=== PATIENT | female | born 1950 | race Two or more races ===

== ENCOUNTER 2019-06-01 20:11 | Inpatient (IN) | payer MEDICARE, MEDICAID ==
[~2019-06-01] VITALS: Ht 162.6 cm; Wt 136.8 kg
--- NOTE | 2019-06-01 20:20 | NUR ---
ED Nurse Note: Patient came with wheelchair c/o wheezes and lower back pain arouind 1830. /10 aching pain in mid back, no trauma; pt stated she was resting in bed. Pt has wheezes with difficutly breathing; pt stated she takes her inhaler but not effective. AAO x4, VSS at this time, skin is dry warm to touch.
[2019-06-01 20:30] VITALS: BP 144/83
--- NOTE | 2019-06-01 20:40 | Emergency Room Report ---
History of Present Illness General Chief Complaint: Upper Respiratory Illness Source: Patient Present Illness HPI Patient presents with severe dyspnea with wheezing. She has a history of asthma. Has been using an inhaler. She is not taking prednisone at this time. She states that this is the worst attack that she is ever had. She denies any color to her phlegm. The patient has had some upper back pain which is worsened with the cough. She rates this pain 6/10 and aching. It is pleuritic. He is taken no medication for this pain. The pain does not radiate. He denies calf pain or edema. No fevers, chills, sore throat, chest pain, palpitations, nausea, vomiting, diarrhea, dysuria, abdominal pain, joint pain, rashes, depression, anxiety, visual changes, dizziness, headache. Allergies: Coded Allergies: No Known Allergies (Unverified , 06/01/19) Patient History Past Medical History: see triage record Social History: Denies: smoking, alcohol use, drug use Social History Narrative with daughter - Reviewed Nursing Documentation: PMH: Agreed; PSxH: Agreed Nursing Documentation-PMH Hx Asthma: Yes Review of Systems All Other Systems: negative except mentioned in HPI Physical Exam Vital Signs Date Time Temp Pulse Resp B/P (MAP) Pulse Ox O2 Delivery O2 Flow Rate FiO2 06/01/19 20:17 98.2 88 18 144/83 (103) 97 Room Air Sp02 EP Interpretation: reviewed, normal General Appearance: well appearing, no apparent distress, GCS 15 Head: normocephalic Eyes: bilateral eye normal inspection, bilateral eye PERRL, bilateral eye EOMI ENT: moist mucus membranes Neck: supple Respiratory: chest non-tender, respiratory distress - Mild with exertion, wheezing, expiration, inspiration Cardiovascular #1: regular rate, rhythm Cardiovascular #2: 2+ radial (R) Gastrointestinal: normal inspection, normal bowel sounds, non tender, no mass, non-distended, overweight Musculoskeletal: normal range of motion, no calf tenderness, Asha's Sign negative, tender - Upper back Neurologic: alert, oriented x3, grossly normal Psychiatric: mood/affect normal Skin: no rash, warm/dry Medical Decision Making Diagnostic Impression: Primary Impression: COPD exacerbation ER Course Patient presents with severe dyspnea and wheezing. Differential includes acute myocardial infarction, COPD exacerbation, pneumonia, asthma exacerbation, pulmonary embolus amongst others. Clinically she does not have a PE at this time. Evaluation with EKG, chest x-ray and labs. The patient will be treated with Solu-Medrol and breathing treatments. EKG without injury. Chest x-ray COPD without infiltrate. Leukocytosis. Improved with breathing treatments but still with expiratory wheezes and dyspnea on exertion. Patient needs continued breathing treatments and observation. Admit [facility] floor Dr. Gama. Laboratory Tests Test 06/01/19 21:00 White Blood Count 13.1 K/UL (4.8-10.8) H Red Blood Count 4.42 M/UL (4.20-5.40) Hemoglobin 11.9 G/DL (12.0-16.0) L Hematocrit 36.9 % (37.0-47.0) L Mean Corpuscular Volume 83 FL (80-99) Mean Corpuscular Hemoglobin 26.9 PG (27.0-31.0) L Mean Corpuscular Hemoglobin Concent 32.3 G/DL (32.0-36.0) Red Cell Distribution Width 13.0 % (11.6-14.8) Platelet Count 374 K/UL (150-450) Mean Platelet Volume 5.6 FL (6.5-10.1) L Neutrophils (%) (Auto) 81.3 % (45.0-75.0) H Lymphocytes (%) (Auto) 12.3 % (20.0-45.0) L Monocytes (%) (Auto) 4.1 % (1.0-10.0) Eosinophils (%) (Auto) 1.4 % (0.0-3.0) Basophils (%) (Auto) 0.9 % (0.0-2.0) Prothrombin Time 10.3 SEC (9.30-11.50) Prothrombin Time INR 1.0 (0.9-1.1) PTT 31 SEC (23-33) Sodium Level 140 MMOL/L (136-145) Potassium Level 4.2 MMOL/L (3.5-5.1) Chloride Level 104 MMOL/L (98-107) Carbon Dioxide Level 29 MMOL/L (21-32) Anion Gap 7 mmol/L (5-15) Blood Urea Nitrogen 16 mg/dL (7-18) Creatinine 1.1 MG/DL (0.55-1.30) Estimate Glomerular Filtration Rate 49.3 mL/min (>60) Glucose Level 120 MG/DL (74-106) H Lactic Acid Level 1.00 mmol/L (0.4-2.0) Calcium Level 9.5 MG/DL (8.5-10.1) Total Bilirubin 0.2 MG/DL (0.2-1.0) Aspartate Amino Transferase (AST) 13 U/L (15-37) L Alanine Aminotransferase (ALT) 17 U/L (12-78) Alkaline Phosphatase 110 U/L (46-116) Total Creatine Kinase 47 U/L (26-308) Troponin I 0.000 ng/mL (0.000-0.056) Pro-B-Type Natriuretic Peptide 217 pg/mL (0-125) H Total Protein 8.3 G/DL (6.4-8.2) H Albumin 3.1 G/DL (3.4-5.0) L Globulin 5.2 g/dL Albumin/Globulin Ratio 0.6 (1.0-2.7) L EKG Diagnostic Results Rate: normal Rhythm: NSR ST Segments: no acute changes Rhythm Strip Diag. Results EP Interpretation: yes Rhythm: NSR, no PVC's, no ectopy Chest X-Ray Diagnostic Results Chest X-Ray Diagnostic Results : Chest X-Ray Ordered: Yes # of Views/Limited/Complete: 1 View Indication: Shortness of Breath EP Interpretation: Yes Interpretation: no consolidation, no effusion, no pneumothorax, other - COPD Impression: Other Electronically Signed by: Electronically signed by Adelso Andrews MD Last Vital Signs Date Time Temp Pulse Resp B/P (MAP) Pulse Ox O2 Delivery O2 Flow Rate FiO2 06/02/19 00:00 98.6 112 18 144/81 (102) 100 06/01/19 23:34 Room Air 06/01/19 21:38 21 Status: improved Disposition: ADMITTED INPATIENT Condition: Serious Adelso Andrews MD Jun 01, 2019 20:39
[2019-06-01] MEDS ORDERED: Ipratropium 0.02% Inh Soln 2.5ml UD HHN ONE (20:45)
[2019-06-01] MEDS ORDERED: Solu-MEDROL 125mg Inj IVP ONE (20:45)
[2019-06-01] MEDS: Albuterol ud Inhalation HHN SCH ×3 (21:08→21:34)
[2019-06-01 21:28] LABS: BASOPHILS % (AUTO) 0.9 % (0.0-2.0); EOSINOPHILS % (AUTO) 1.4 % (0.0-3.0); HEMATOCRIT 36.9 % (37.0-47.0); HEMOGLOBIN 11.9 G/DL (12.0-16.0); LYMPHOCYTES % (AUTO) 12.3 % (20.0-45.0); MEAN CORPUSCULAR VOLUME 83 FL (80-99); MONOCYTES % (AUTO) 4.1 % (1.0-10.0); NEUTROPHILS % (AUTO) 81.3 % (45.0-75.0); PLATELET COUNT 374 K/UL (150-450); RED BLOOD COUNT 4.42 M/UL (4.20-5.40); WHITE BLOOD COUNT 13.1 K/UL (4.8-10.8)
[2019-06-01 21:42] LABS: ANION GAP 7 mmol/L (5-15); BLOOD UREA NITROGEN 16 mg/dL (7-18); CALCIUM 9.5 MG/DL (8.5-10.1); CARBON DIOXIDE 29 MMOL/L (21-32); CHLORIDE 104 MMOL/L (98-107); CREATININE 1.1 MG/DL (0.55-1.30); POTASSIUM 4.2 MMOL/L (3.5-5.1); SODIUM 140 MMOL/L (136-145)
[2019-06-01 21:54] LABS: ALANINE AMINOTRANSFERASE 17 U/L (12-78); ALBUMIN 3.1 G/DL (3.4-5.0); ALBUMIN/GLOBULIN RATIO 0.6 (1.0-2.7); ALKALINE PHOSPHATASE 110 U/L (46-116); ASPARTATE AMINO TRANSFERASE 13 U/L (15-37); BILIRUBIN,TOTAL 0.2 MG/DL (0.2-1.0); CREATINE KINASE 47 U/L (26-308)
--- NOTE | 2019-06-01 22:45 | NUR ---
NURSE NOTES: Received a report from NASEEM Hernandes. Awaiting for pt's arrival.
[2019-06-01 22:52] VITALS: BP 144/83
--- NOTE | 2019-06-01 23:00 | NUR ---
NURSE NOTES: Pt arrived in the unit. AAOX4. Able to make needs known. On room air. No c/o pain/discomfort. IV site is patent and intact. Skin is intact. Belongings checked. Bed in lowest position. Bed alarm is furnace converter light within reach. Will continue to monitor.
[2019-06-01] MEDS ORDERED: Albuterol/Ipratropium 3ml neb HHN PRN (23:45)
[2019-06-02] VITALS: BP 144/81
[2019-06-02] MEDS ORDERED: NKM (00:39)
--- NOTE | 2019-06-02 03:38 | NUR ---
ED Nurse Note: Patient was admited to MS due to SOB, lower back pain, for observation. Patient was transfered to the unit via gurney, with all belongings. AAO x4, VSS at this time.
[2019-06-02 04:00] VITALS: BP 159/82
[2019-06-02] MEDS: Solu-MEDROL 125mg Inj IVP SCH ×2 (05:11→14:44)
[2019-06-02 06:23] LABS: HEMATOCRIT 37.7 % (37.0-47.0); HEMOGLOBIN 11.8 G/DL (12.0-16.0); MEAN CORPUSCULAR VOLUME 85 FL (80-99); PLATELET COUNT 427 K/UL (150-450); RED BLOOD COUNT 4.44 M/UL (4.20-5.40); RED CELL DISTRIBUTION WIDTH 14.5 % (11.6-14.8); WHITE BLOOD COUNT 13.2 K/UL (4.8-10.8)
[2019-06-02 06:34] LABS: ANION GAP 13 mmol/L (5-15); BLOOD UREA NITROGEN 16 mg/dL (7-18); CALCIUM 9.6 MG/DL (8.5-10.1); CARBON DIOXIDE 23 MMOL/L (21-32); CHLORIDE 104 MMOL/L (98-107); CREATININE 1.4 MG/DL (0.55-1.30); POTASSIUM 3.6 MMOL/L (3.5-5.1); SODIUM 140 MMOL/L (136-145)
--- NOTE | 2019-06-02 07:00 | NUR ---
HAND-OFF: Report given to NASEEM Quiroz. Pt is in stable condition.
--- NOTE | 2019-06-02 08:14 | NUR ---
NURSE NOTES: received report from NASEEM Laura. patient in bed. alert. oriented. verbally responsive. no respiratory distress noted. no c/o pain a this time. IV on RAC20 saline. bed in the lowest position. call light within reach. will continue to provide plan of care.
[2019-06-02 08:28] VITALS: BP 157/82
[2019-06-02] MEDS: Heparin 5000 units/ml inj SUBQ SCH ×3 (08:57→21:54)
[2019-06-02] MEDS ORDERED: cefTRIAXone 1 GM in D5W 55 ML IVPB SCH (09:00)
--- NOTE | 2019-06-02 10:51 | NUR ---
ST NOTES: REFERRED FOR SWALLOW EVAL BY DR AG (PRIMARY MD DR AVILES), SEE FULL REPORT. DYSPHAGIA RISK FACTORS FOR THIS 68 YEAR OLD AA AND ADVANCED AGED FEMALE: ACUTE ISSUES: COPD WITH EXACERBATION INCREASED RESP RATE WITH PO INTAKE SPONTANEOUSLY COUGH SOME ? UNRELATED TO PO INTAKE. LUNGS CLEAR NOW PER ER MD H/O ASTHMA, BORDERLINE DIABETES. NO POLST/ADVANCE DIRECTIVE REGARDING TUBE FEEDING PREFERENCES IF NEEDED. AT HOME ON REGULAR TEXTURE DIET AND THIN LIQUIDS. (NO DENTITION/DENTURES). FAMILY AND PT DENY SWALLOW PROBLEMS. NOW ON REGULAR TYPE DIET [facility] SOFT CHOPPED AND THIN LIQUIDS W/O REPORTED ASPIRATION PER FAMILY AND RN. OK WITH MEDS PER RN BUT MOSTLY IV NOW. INTAKE POOR PATIENT DISLIKES FOOD AND FAMILY BRINGING IN FOOD SHE LIKES (FRIED POTATOES AND EGG MCMUFFIN) PER RD NEEDS CCHO-LOW DIET. PATIENT ALERT BUT NOT VERY VERBAL SLEEPY AND SOB AT REST (RESP RATE USUALLY 18). ABLE TO EXPRESS SOME NEEDS AND DENIES SWALLOW PROBLEMS. INITIAL IMPRESSIONS: S/S OF HIGH ASPIRATION RISK AND DYSPHAGIA MOSTLY WITH THIN LIQUIDS SEQUENTIAL SIPS. GIVEN THIN LIQUIDS VIA STRAW SEQUENTIAL SIPS (3 0Z WATER [place] SWALLOW PROTOCOL), ONLY ABLE TO TAKE A FEW SIPS AND RESP RATE GOES UP TO 21 AND NEEDS TO REST AND TAKE A BREATH, LAST SWALLOW MILDLY DELAYED. NO OVERT ASPIRATION ? SILENT ASP RISK (LUNGS CLEAR NOW PER ER MD). GIVEN PUREED TSP GROSSLY FUNCTIONAL SWALLOW, DIFFICULT TO PALPATE GIVEN EXCESS NECK TISSUE (OBESITY). REFUSED MASTICATED SOLID BUT PER GRANDSON, ATE HALF OF EGG MCMUFFIN AND SOME FRIED POTATOES W/O OVERT ASPIRATION AND CHOKING. RECOMMENDATIONS: CONSIDER CONTINUE WITH PO INTAKE OF CURRENT [facility] SOFT CHOPPED DIET AND THIN LIQUIDS (ONE SIP AT A TIME ONLY RESP RATE BELOW 21) AND OTHER ASPIRATION PRECAUTIONS AND SUPERVISION/ASSIST WITH MEALS. PER CHALO, MARCELINO, CHANGE TO CCHO-LOW FOR NOW. SKILLED DYSPHAGIA MANAGEMENT AND TX IF HAS A MOD BARIUM SWALLOW STUDY AND DEFICITS FOUND (CAN DO STUDY IP OR OP IF DC). R/O COG-COM DEFICITS IF NEEDED (CHECK ORIENTATION WHEN MORE AWAKE) EDUCATED/TRAINED FAMILY AND STAFF IN POSTED ASPIRATION PRECAUTIONS
[2019-06-02] MEDS ORDERED: Azithromycin 500 MG in D5W 275 ML IV SCH (11:00)
[2019-06-02 11:27] VITALS: BP 177/92
--- NOTE | 2019-06-02 12:50 | Diagnostic Imaging Report ---
Indication: Dyspnea Comparison: None A single view chest radiograph was obtained. Findings: Cardiomediastinal silhouette is mildly prominent. Aorta mildly calcified. The lungs are clear. Pulmonary vascularity is appropriate. The diaphragmatic contour is smooth and costophrenic angles are sharp. No pleural effusions are identified. The bones are unremarkable. Impression: No acute findings
[2019-06-02 16:00] VITALS: BP 167/100
--- NOTE | 2019-06-02 16:15 | Pulmonology Progress Note ---
Assessment/Plan Assessment/Plan Pulmonary Consultation HPI Patient is a 68 year old woman admiotted complaining of severe dyspnea and wheezing. She has a history of asthma. Has been using PRN Albuyerol only. She is not taking prednisone at this time. She states that this is the worst attack that she is ever had. She denies any color to her phlegm The patient has had some upper back pain which is worsened with the cough. No fevers, chills, sore throat, chest pain, palpitations, nausea, vomiting, diarrhea, dysuria, abdominal pain, joint pain, rashes, depression, anxiety, visual changes, dizziness, headache. Allergies: No Known Allergies Past Medical History: Asthma, Hypertension Social History: Denies: smoking, alcohol use, drug use All Other Systems: negative except mentioned in HPI Physical Exam Vital Signs Noted Date Time Temp Pulse Resp B/P (MAP) Pulse Ox O2 Delivery O2 Flow Rate FiO2 06/01/19 20:17 98.2 88 18 144/83 (103) 97 Room Air General Appearance: well appearing, no apparent distress, GCS 15 Head: normocephalic Eyes: bilateral eye normal inspection, bilateral eye PERRL, bilateral eye EOMI ENT: moist mucus membranes Neck: supple Respiratory: chest non-tender, mild expiratory wheezing Cardiovascular: regular rate, rhythm, HS1, HS2, RRR Gastrointestinal: normal inspection, normal bowel sounds, non tender, no mass, non-distended, overweight Musculoskeletal: back normal, normal range of motion, no calf tenderness, Asha 's Sign negative Neurologic: alert, oriented x3, grossly normal Skin: no rash, warm/dry, no edema Impression: COPD/Asthma exacerbation Possible Chest Infection History of Hypertension Plan: IV Solu-Medrol - wean as tolerated HHN Q4 Leukocytosis. 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 PPX O2 PRN Laboratory Tests Test 06/01/19 21:00 White Blood Count 13.1 K/UL (4.8-10.8) H Red Blood Count 4.42 M/UL (4.20-5.40) Hemoglobin 11.9 G/DL (12.0-16.0) L Hematocrit 36.9 % (37.0-47.0) L Mean Corpuscular Volume 83 FL (80-99) Mean Corpuscular Hemoglobin 26.9 PG (27.0-31.0) L Mean Corpuscular Hemoglobin Concent 32.3 G/DL (32.0-36.0) Red Cell Distribution Width 13.0 % (11.6-14.8) Platelet Count 374 K/UL (150-450) Mean Platelet Volume 5.6 FL (6.5-10.1) L Neutrophils (%) (Auto) 81.3 % (45.0-75.0) H Lymphocytes (%) (Auto) 12.3 % (20.0-45.0) L Monocytes (%) (Auto) 4.1 % (1.0-10.0) Eosinophils (%) (Auto) 1.4 % (0.0-3.0) Basophils (%) (Auto) 0.9 % (0.0-2.0) Prothrombin Time 10.3 SEC (9.30-11.50) Prothrombin Time INR 1.0 (0.9-1.1) PTT 31 SEC (23-33) Sodium Level 140 MMOL/L (136-145) Potassium Level 4.2 MMOL/L (3.5-5.1) Chloride Level 104 MMOL/L (98-107) Carbon Dioxide Level 29 MMOL/L (21-32) Anion Gap 7 mmol/L (5-15) Blood Urea Nitrogen 16 mg/dL (7-18) Creatinine 1.1 MG/DL (0.55-1.30) Estimate Glomerular Filtration Rate 49.3 mL/min (>60) Glucose Level 120 MG/DL (74-106) H Lactic Acid Level 1.00 mmol/L (0.4-2.0) Calcium Level 9.5 MG/DL (8.5-10.1) Total Bilirubin 0.2 MG/DL (0.2-1.0) Aspartate Amino Transferase (AST) 13 U/L (15-37) L Alanine Aminotransferase (ALT) 17 U/L (12-78) Alkaline Phosphatase 110 U/L (46-116) Total Creatine Kinase 47 U/L (26-308) Troponin I 0.000 ng/mL (0.000-0.056) Pro-B-Type Natriuretic Peptide 217 pg/mL (0-125) H Total Protein 8.3 G/DL (6.4-8.2) H Albumin 3.1 G/DL (3.4-5.0) L Globulin 5.2 g/dL Albumin/Globulin Ratio 0.6 (1.0-2.7) L EKG: Rate: normal Rhythm: NSR ST Segments: no acute changes Chest X-Ray: no consolidation, no effusion, no pneumothorax, other - COPD Subjective ROS Limited/Unobtainable: No Allergies: Coded Allergies: No Known Allergies (Unverified , 06/01/19) Objective Last 24 Hour Vital Signs Date Time Temp Pulse Resp B/P (MAP) Pulse Ox O2 Delivery O2 Flow Rate FiO2 06/02/19 11:27 97.7 97 22 177/92 (120) 98 06/02/19 09:00 Room Air 06/02/19 08:28 98.1 90 24 157/82 (107) 97 06/02/19 05:41 98.5 06/02/19 04:00 98.5 97 19 159/82 (107) 98 06/02/19 00:00 98.6 112 18 144/81 (102) 100 06/01/19 23:34 Room Air 06/01/19 22:52 98.2 88 24 144/83 100 Room Air 21 06/01/19 22:52 98.2 88 24 144/83 100 Room Air 21 06/01/19 21:38 93 24 100 Room Air 21 89 19 100 06/01/19 21:15 89 19 100 Room Air 21 85 18 100 06/01/19 20:30 98.2 88 18 144/83 97 Room Air 06/01/19 20:30 88 18 Room Air 06/01/19 20:17 98.2 88 18 144/83 (103) 97 Room Air 06/01/19 19:55 85 19 100 Room Air 21 82 18 99 Intake and Output 06/01/19 06/02/19 19:00 07:00 Intake Total 360 ml Balance 360 ml Intake Oral 360 ml # Voids 2 Laboratory Tests 06/01/19 21:00: White Blood Count 13.1H, Red Blood Count 4.42, Hemoglobin 11.9L, Hematocrit 36.9L, Mean Corpuscular Volume 83, Mean Corpuscular Hemoglobin 26.9L, Mean Corpuscular Hemoglobin Concent 32.3, Red Cell Distribution Width 13.0, Platelet Count 374, Mean Platelet Volume 5.6L, Neutrophils (%) (Auto) 81.3H, Lymphocytes (%) (Auto) 12.3L, Monocytes (%) (Auto) 4.1, Eosinophils (%) (Auto) 1.4, Basophils (%) (Auto) 0.9, Prothrombin Time 10.3, Prothromb Time International Ratio 1.0, Activated Partial Thromboplast Time 31, Sodium Level 140, Potassium Level 4.2, Chloride Level 104, Carbon Dioxide Level 29, Anion Gap 7, Blood Urea Nitrogen 16, Creatinine 1.1, Estimat Glomerular Filtration Rate 49.3, Glucose Level 120H, Lactic Acid Level 1.00, Calcium Level 9.5, Total Bilirubin 0.2, Aspartate Amino Transf (AST/SGOT) 13L, Alanine Aminotransferase (ALT/SGPT) 17, Alkaline Phosphatase 110, Total Creatine Kinase 47, Troponin I 0.000, Pro-B- Type Natriuretic Peptide 217H, Total Protein 8.3H, Albumin 3.1L, Globulin 5.2, Albumin/Globulin Ratio 0.6L 06/02/19 04:59: White Blood Count 13.2H, Red Blood Count 4.44, Hemoglobin 11.8L, Hematocrit 37.7 , Mean Corpuscular Volume 85, Mean Corpuscular Hemoglobin 26.5L, Mean Corpuscular Hemoglobin Concent 31.2L, Red Cell Distribution Width 14.5, Platelet Count 427, Mean Platelet Volume 5.6L, Neutrophils (%) (Auto) , Lymphocytes (%) (Auto) , Monocytes (%) (Auto) , Eosinophils (%) (Auto) , Basophils (%) (Auto) , Sodium Level 140, Potassium Level 3.6, Chloride Level 104 , Carbon Dioxide Level 23, Anion Gap 13, Blood Urea Nitrogen 16, Creatinine 1.4H , Estimat Glomerular Filtration Rate 37.2, Glucose Level 274#H, Calcium Level 9.6 Current Medications Medications (Trade) Dose Ordered Sig/Tyler Route PRN Reason Start Time Stop Time Status Last Admin Dose Admin Acetaminophen (Tylenol) 650 mg Q4H PRN ORAL Mild Pain/Temp > 100.5 06/01/19 23:45 07/01/19 23:44 06/02/19 05:11 Albuterol/ Ipratropium (Albuterol/ Ipratropium) 3 ml Q4H PRN HHN Shortness of Breath 06/01/19 23:45 06/06/19 23:44 Azithromycin 500 mg/Dextrose 275 ml @ 275 mls/hr Q24HRS IV 06/02/19 11:00 06/08/19 11:59 06/02/19 12:11 Ceftriaxone Sodium 1 gm/ Dextrose 55 ml @ 110 mls/hr Q24H IVPB 06/02/19 09:00 06/09/19 08:59 06/02/19 10:04 Heparin Sodium (Porcine) (Heparin 5000 units/ml) 5,000 units EVERY 12 HOURS SUBQ 06/02/19 09:00 07/02/19 08:59 06/02/19 08:57 Methylprednisolone Sodium Succinate (Solu-MEDROL) 60 mg EVERY 8 HOURS IVP 06/02/19 06:00 07/02/19 05:59 06/02/19 14:44 Ondansetron HCl (Zofran) 4 mg Q8H PRN IVP Nausea & Vomiting 06/02/19 00:00 07/02/19 00:00 Adelso Sanches MD Jun 02, 2019 16:15
--- NOTE | 2019-06-02 18:28 | NUR ---
NURSE NOTES: NURSE NOTES:
--- NOTE | 2019-06-02 18:29 | NUR ---
NURSE NOTES: patient has had high blood pressure since admission. no hx of HTN. no home medication. notified DR. Richardson and received order consult with Dr. Salas. RN called gretchen Soto and no answer at this time.
--- NOTE | 2019-06-02 19:41 | NUR ---
HAND-OFF: Report given to NASEEM Naranjo.
--- NOTE | 2019-06-02 19:49 | NUR ---
NURSE NOTES: Received patient in bed, asleep, eyes closed, able to make her needs known, IV site is clean dry and intact, no acute distress noted, call light is within reach, bed is in low position, locked, alarm is on. Will continue to monitor for comfort and safety.
[2019-06-02 20:00] VITALS: BP 152/93
--- NOTE | 2019-06-02 21:46 | NUR ---
patients blood pressure been elevated am and pm shift, 172/78, 152/98, per Dr. Gama need to reach out to Dr. Salas, RN left a voice message at [phone] Salas.
[2019-06-02] MEDS: Solu-MEDROL 40mg Inj IVP SCH (21:53)
--- NOTE | 2019-06-02 22:30 | Consultation ---
DATE OF CONSULTATION: 06/02/2019 INFECTIOUS DISEASES CONSULTATION CONSULTING PHYSICIAN: Antonio Heard M.D. PRIMARY ATTENDING PHYSICIAN: Tae Gama M.D. REASON FOR CONSULTATION: COPD, asthma exacerbation. HISTORY OF PRESENT ILLNESS: This is a 68-year-old female admitted last night because of shortness of breath, wheezing. She had history of asthma, taking bronchodilator at home but it was not helpful. The patient also has mild leukocytosis of 13.1 at the time of admission. PAST MEDICAL HISTORY: Significant for obesity, asthma, COPD. ALLERGIES: No known drug allergies. MEDICATIONS: Azithromycin, ceftriaxone, methylprednisone, heparin, Zofran, Tylenol, albuterol ipratropium inhaler. SOCIAL HISTORY: Lives at home. . No history of alcohol, drug abuse, or smoking. REVIEW OF SYSTEMS: Feels much better. Still having slight shortness of breath especially with moving. No fever. No sore throat. No runny nose. Small amount of coughing that is nonproductive. No dysuria. No pain. PHYSICAL EXAMINATION: VITAL SIGNS: Temperature 97.7, pulse 97, blood pressure 177/92. GENERAL APPEARANCE: She is morbidly obese. HEAD AND NECK: [place] conjunctiva. HEART: Normal rate. LUNGS: Few wheezing on deep breathing. ABDOMEN: Obese, soft. EXTREMITIES: No edema. LABORATORY AND DIAGNOSTIC DATA: WBC 13.2, hemoglobin 11.8, hematocrit 37.7, and platelets is 427. Sodium 140, potassium 3.6, chloride 104, bicarbonate 23, BUN 16, and creatinine 1.4, glucose 274, albumin is 3.1. Chest x-ray showed no acute disease. IMPRESSION: 1. Asthma. 2. COPD exacerbation. 3. Leukocytosis. 4. Morbid obesity. 5. Hyperglycemia likely secondary to steroids. 6. Acute kidney injury. RECOMMENDATION: I agree with current treatment with ceftriaxone and Zithromax. The patient is to lose weight and tapering of steroids as soon as possible. At the end of my exam, I thank Dr. Gama, for involving me in the care of this patient. Antonio Heard M.D. DR: Jaswinder Atkins: 06/02/2019 15:48 JOB#: [id number] CC:
[2019-06-03] VITALS (7 sets, daily range): BP systolic 124–159; BP diastolic 80–98
--- NOTE | 2019-06-03 04:30 | History and Physical Report ---
DATE OF ADMISSION: 06/01/2019 HISTORY OF PRESENT ILLNESS: The patient is admitted for COPD exacerbation, elevated WBC. Reports that the patient has history of asthma. Has been complaining of wheezing, shortness of breath, and nonproductive cough for the past couple of days. Also, has chronic back pain. Admitted for asthma exacerbation. Denies nausea, vomiting, or diarrhea. Denies heartburn. Denies chills. PAST MEDICAL HISTORY: Asthma, chronic back pain. PAST SURGICAL HISTORY: , appendectomy. SOCIAL HISTORY: History of smoking. No history of alcohol or illicit drugs. MEDICATIONS: No known medications. FAMILY HISTORY: Noncontributory. REVIEW OF SYSTEMS: HEENT: Denies headaches. RESPIRATORY: Reports shortness of breath and nonproductive cough for a couple days of and wheezing. CARDIOVASCULAR: Denies chest pain. GI: Denies nausea, vomiting, diarrhea. EXTREMITIES: Does have chronic back pain. CENTRAL NERVOUS SYSTEM: Denies change in vision or speech pattern. PHYSICAL EXAMINATION: VITAL SIGNS: Temperature is 97.7, pulse 97, blood pressure 177/92. HEENT: PERRLA. NECK: Supple. No lymphadenopathy. CHEST: Clear. Bibasilar wheezing. CARDIOVASCULAR: Regular rate and rhythm. ABDOMEN: Soft. Positive bowel sounds. No organomegaly. EXTREMITIES: 1+ edema. NEUROLOGIC: Reflexes on both sides. Moves all four extremities. LABORATORY DATA: WBC of 13.1, hemoglobin 14.9, and platelets of 374. Sodium 140, potassium 4.2, BUN of 16, creatinine 1.1, and glucose of 120. ASSESSMENT AND PLAN: Asthma exacerbation, respiratory insufficiency. I have asked Dr. Antonio Heard and to see the patient to rule out pneumonia versus bronchitis and also for the management of asthma exacerbation. Tae Gama M.D. DR: LEIGHTON JOB#: [id number] CC:
[2019-06-03] MEDS: Solu-MEDROL 40mg Inj IVP SCH ×2 (05:32→13:47)
--- NOTE | 2019-06-03 07:07 | NUR ---
HAND-OFF: Report given to Julissa GUSMAN.
--- NOTE | 2019-06-03 07:15 | NUR ---
NURSE NOTES: Received report from NASEEM Naranjo. Pt is awake and alert, sitting up in bed. No complaints of pain or apparent distress noted. IV site intact. Bed locked in lowest position, side rails up, call light within reach. Will continue to monitor.
[2019-06-03] MEDS: Azithromycin 250mg tab ORAL SCH (08:29)
[2019-06-03] MEDS: Heparin 5000 units/ml inj SUBQ SCH ×3 (08:34→21:00)
--- NOTE | 2019-06-03 11:13 | NUR ---
RD ASSESSMENT & RECOMMENDATIONS SEE CARE ACTIVITY FOR COMPLETE ASSESSMENT DAILY ESTIMATED NEEDS: Needs based on COPD, OBESITY/ 73.75kg abw 20-25 kcals/kg 8905-8312 total kcals 1-1.5 g protein/kg 74-111 g total protein 25-30 mL/kg 4387-7896 total fluid mLs NUTRITION DIAGNOSIS: * Morbid obesity R/T lifestyle factors, excessive energy intake QUALITY TESTER as evidenced by BMI >50. * Altered nutrition related lab values R/T h/o "borderline diabetes," on steroidal med, clinical condition as evidenced by elev BGs (274, 120), pt on Solumedrol, elev BPs (159/98, 167/100), pt on hypotensive agents. CURRENT DIET:CCHO LOW, mech soft chopped PO DIET RECOMMENDATIONS: CCHO LOW, CARDIAC/ texture per COMPOSITION STONE APPLICATOR ADDITIONAL RECOMMENDATIONS: * Standing wt as able, or calibrated bedscale wt -> weekly wt monitoring given obesity * Check A1C for eval of glycemic control * Monitor BGs closely, need for NISS * Monitor for non-compliance with diet, educate prn * Diet education w/ pt as able- pt too sleepy this AM (06/03) -> discussed w/ spouse
--- NOTE | 2019-06-03 11:48 | Infectious Diseases Prog Note ---
Assessment/Plan Assessment/Plan IMPRESSION: 1. Asthma. 2. COPD exacerbation. 3. Leukocytosis. 4. Morbid obesity. 5. Hyperglycemia likely secondary to steroids. 6. Acute kidney injury. RECOMMENDATION: Continue Zithromax taper steroids f/u labs Subjective ROS Limited/Unobtainable: Yes Constitutional: Denies: fever Allergies: Coded Allergies: No Known Allergies (Unverified , 06/01/19) Objective Vital Signs Last 24 Hour Vital Signs Date Time Temp Pulse Resp B/P (MAP) Pulse Ox O2 Delivery O2 Flow Rate FiO2 06/03/19 09:00 Room Air 06/03/19 08:29 81 159/98 06/03/19 08:00 97.4 81 20 159/98 (118) 95 06/03/19 04:00 98.2 88 18 158/85 (109) 95 06/03/19 00:00 98.4 94 18 149/87 (107) 97 06/02/19 22:06 78 151/76 06/02/19 21:07 Room Air 06/02/19 20:00 97.8 87 17 152/93 (112) 06/02/19 19:44 Room Air 21 06/02/19 16:00 97.2 86 20 167/100 (122) 98 Height (Feet): 5 Height (Inches): 4.00 Weight (Pounds): 301 General Appearance: no acute distress HEENT: mucous membranes moist Respiratory/Chest: lungs clear Cardiovascular: normal rate Abdomen: soft, non tender Extremities: no edema Neurologic/Psychiatric: other - sleeping Current Medications Medications (Trade) Dose Ordered Sig/Tyler Route PRN Reason Start Time Stop Time Status Last Admin Dose Admin Acetaminophen (Tylenol) 650 mg Q4H PRN ORAL Mild Pain/Temp > 100.5 06/01/19 23:45 07/01/19 23:44 06/02/19 05:11 Albuterol/ Ipratropium (Albuterol/ Ipratropium) 3 ml Q4H PRN HHN Shortness of Breath 06/01/19 23:45 06/06/19 23:44 Amlodipine Besylate (Norvasc) 10 mg DAILY ORAL 06/03/19 09:00 07/03/19 08:59 06/03/19 08:29 Azithromycin (Zithromax) 500 mg DAILY ORAL 06/03/19 09:00 11/19 08:59 06/03/19 08:29 Clonidine HCl (Catapres Tab) 0.1 mg Q4H PRN ORAL bp over 165 syst 06/02/19 22:00 07/02/19 21:59 Heparin Sodium (Porcine) (Heparin 5000 units/ml) 5,000 units EVERY 12 HOURS SUBQ 06/02/19 09:00 07/02/19 08:59 06/03/19 08:34 Methylprednisolone Sodium Succinate (Solu-MEDROL) 40 mg EVERY 8 HOURS IVP 06/02/19 22:00 07/02/19 05:59 06/03/19 05:32 Ondansetron HCl (Zofran) 4 mg Q8H PRN IVP Nausea & Vomiting 06/02/19 00:00 07/02/19 00:00 Antonio Heard MD Jun 03, 2019 11:48
--- NOTE | 2019-06-03 13:33 | Consultation ---
Consult Note Consult Note asked to eval at the request of Dr Lainez for BP management interviewed examined Chief Complaint: Upper Respiratory Illness Patient presents with severe dyspnea with wheezing. She has a history of asthma. Has been using an inhaler. She is not taking prednisone at this time. She states that this is the worst attack that she is ever had. She denies any color to her phlegm. The patient has had some upper back pain which is worsened with the cough. No fevers, chills, sore throat, chest pain, palpitations, nausea, vomiting, diarrhea, dysuria, abdominal pain, joint pain, rashes, depression, anxiety, visual changes, dizziness, headache. No Known Allergies (Unverified , 06/01/19) Assessment/Plan exacerbation COPD- HTN- Anemia BP meds 2 D echo Anemia espino per pulmonary taper steroids as possible Herb Salas MD Jun 03, 2019 13:33
--- NOTE | 2019-06-03 14:58 | NUR ---
*-* INSURANCE *-* ALL CLINICALS HAVE BEEN FAXED TO: Juan Carlos Ibrahim Ref# or CM [place] fax#[phone] & [facility] Ref#[id number] ph#[phone] fax#[phone]
--- NOTE | 2019-06-03 19:25 | NUR ---
HAND-OFF: Report given to NASEEM Naranjo.
--- NOTE | 2019-06-03 19:42 | NUR ---
NURSE NOTES: Received patient in bed, family at bedside, patient is awake, alert and oriented x4, able to make her needs known, IV site is clean dry and intact. Call light is within reach, bed is in low position, locked and alarm is on. Will continue to monitor for safety and comfort.
[2019-06-03] MEDS ORDERED: Solu-MEDROL 40mg Inj IVP SCH (21:00)
--- NOTE | 2019-06-03 21:22 | General Progress Note ---
Assessment/Plan Problem List: (1) COPD exacerbation ICD Codes: J44.1 - Chronic obstructive pulmonary disease with (acute) exacerbation SNOMED: 138374113 Status: progressing Assessment/Plan: no wheezing afebrile vitals stable copd exacerbation do nebs Subjective ROS Limited/Unobtainable: Yes Allergies: Coded Allergies: No Known Allergies (Unverified , 06/01/19) Objective Last 24 Hour Vital Signs Date Time Temp Pulse Resp B/P (MAP) Pulse Ox O2 Delivery O2 Flow Rate FiO2 06/03/19 21:14 Room Air 06/03/19 20:35 Room Air 21 06/03/19 20:00 98.1 96 20 133/81 (98) 98 06/03/19 16:00 98.0 85 20 131/80 (97) 96 06/03/19 13:56 124/84 06/03/19 13:54 89 124/84 (97) 06/03/19 12:00 97.5 74 20 152/90 (110) 97 06/03/19 09:00 Room Air 06/03/19 08:29 81 159/98 06/03/19 08:00 97.4 81 20 159/98 (118) 95 06/03/19 04:00 98.2 88 18 158/85 (109) 95 06/03/19 00:00 98.4 94 18 149/87 (107) 97 06/02/19 22:06 78 151/76 Intake and Output 06/02/19 06/03/19 19:00 07:00 Intake Total 865 ml 360 ml Balance 865 ml 360 ml Intake Oral 480 ml 360 ml IV Total 385 ml # Voids 3 2 # Bowel Movements 1 Height (Feet): 5 Height (Inches): 4.00 Weight (Pounds): 301 Cardiovascular: regular rhythm Respiratory/Chest: lungs clear Abdomen: soft Tae Gama MD Jun 03, 2019 21:22
--- NOTE | 2019-06-03 22:06 | NUR ---
NURSE NOTES: Patients IV has infiltrated, attempted to restart new IV, unsuccessful, patient is refusing it now, notified CN and MD.
--- NOTE | 2019-06-03 22:28 | NUR ---
NURSE NOTES: per Dr. Sanches discontinue IV solumedrol and start patient on prednisone 40 mg QD.
--- NOTE | 2019-06-03 22:57 | Pulmonology Progress Note ---
Assessment/Plan Assessment/Plan Pulmonary Progress Note HPI Patient is a 68 year old woman admiotted complaining of severe dyspnea and wheezing. She has a history of asthma. Has been using PRN Albuterol only. The patient previously had some upper back pain which is worsened with the cough. No infiltrates on CXR. No fevers, chills, sore throat, chest pain, palpitations, nausea, vomiting, diarrhea, dysuria, abdominal pain, joint pain, rashes, depression, anxiety, visual changes, dizziness, headache. Allergies: No Known Allergies Past Medical History: Asthma, HypertensionI Physical Exam Vital Signs Noted General Appearance: well appearing, no apparent distress, GCS 15 Head: normocephalic Eyes: bilateral eye normal inspection, bilateral eye PERRL, bilateral eye EOMI ENT: moist mucus membranes Neck: supple Respiratory: chest non-tender, CTAB Cardiovascular: regular rate, rhythm, HS1, HS2, RRR Gastrointestinal: normal inspection, normal bowel sounds, non tender, no mass, non-distended, overweight Musculoskeletal: back normal, normal range of motion, no calf tenderness, Asha 's Sign negative Neurologic: alert, oriented x3, grossly normal Skin: no rash, warm/dry, no edema Impression: COPD/Asthma exacerbation Possible Chest Infection No infiltrate on CXR History of Hypertension Plan: PO Prednisone - wean as tolerated HHN Q4 Leukocytosis. 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 Laboratory Tests Noted Test 06/01/19 21:00 White Blood Count 13.1 K/UL (4.8-10.8) H Red Blood Count 4.42 M/UL (4.20-5.40) Hemoglobin 11.9 G/DL (12.0-16.0) L Hematocrit 36.9 % (37.0-47.0) L Mean Corpuscular Volume 83 FL (80-99) Mean Corpuscular Hemoglobin 26.9 PG (27.0-31.0) L Mean Corpuscular Hemoglobin Concent 32.3 G/DL (32.0-36.0) Red Cell Distribution Width 13.0 % (11.6-14.8) Platelet Count 374 K/UL (150-450) Mean Platelet Volume 5.6 FL (6.5-10.1) L Neutrophils (%) (Auto) 81.3 % (45.0-75.0) H Lymphocytes (%) (Auto) 12.3 % (20.0-45.0) L Monocytes (%) (Auto) 4.1 % (1.0-10.0) Eosinophils (%) (Auto) 1.4 % (0.0-3.0) Basophils (%) (Auto) 0.9 % (0.0-2.0) Prothrombin Time 10.3 SEC (9.30-11.50) Prothrombin Time INR 1.0 (0.9-1.1) PTT 31 SEC (23-33) Sodium Level 140 MMOL/L (136-145) Potassium Level 4.2 MMOL/L (3.5-5.1) Chloride Level 104 MMOL/L (98-107) Carbon Dioxide Level 29 MMOL/L (21-32) Anion Gap 7 mmol/L (5-15) Blood Urea Nitrogen 16 mg/dL (7-18) Creatinine 1.1 MG/DL (0.55-1.30) Estimate Glomerular Filtration Rate 49.3 mL/min (>60) Glucose Level 120 MG/DL (74-106) H Lactic Acid Level 1.00 mmol/L (0.4-2.0) Calcium Level 9.5 MG/DL (8.5-10.1) Total Bilirubin 0.2 MG/DL (0.2-1.0) Aspartate Amino Transferase (AST) 13 U/L (15-37) L Alanine Aminotransferase (ALT) 17 U/L (12-78) Alkaline Phosphatase 110 U/L (46-116) Total Creatine Kinase 47 U/L (26-308) Troponin I 0.000 ng/mL (0.000-0.056) Pro-B-Type Natriuretic Peptide 217 pg/mL (0-125) H Total Protein 8.3 G/DL (6.4-8.2) H Albumin 3.1 G/DL (3.4-5.0) L Globulin 5.2 g/dL Albumin/Globulin Ratio 0.6 (1.0-2.7) L EKG: Rate: normal Rhythm: NSR ST Segments: no acute changes Chest X-Ray: no consolidation, no effusion, no pneumothorax Subjective ROS Limited/Unobtainable: No Allergies: Coded Allergies: No Known Allergies (Unverified , 06/01/19) Objective Last 24 Hour Vital Signs Date Time Temp Pulse Resp B/P (MAP) Pulse Ox O2 Delivery O2 Flow Rate FiO2 06/03/19 22:15 151/76 06/03/19 21:14 Room Air 06/03/19 20:35 Room Air 21 06/03/19 20:00 98.1 96 20 133/81 (98) 98 06/03/19 16:00 98.0 85 20 131/80 (97) 96 06/03/19 13:56 124/84 06/03/19 13:54 89 124/84 (97) 06/03/19 12:00 97.5 74 20 152/90 (110) 97 06/03/19 09:00 Room Air 06/03/19 08:29 81 159/98 06/03/19 08:00 97.4 81 20 159/98 (118) 95 06/03/19 04:00 98.2 88 18 158/85 (109) 95 06/03/19 00:00 98.4 94 18 149/87 (107) 97 Intake and Output 06/02/19 06/03/19 19:00 07:00 Intake Total 865 ml 360 ml Balance 865 ml 360 ml Intake Oral 480 ml 360 ml IV Total 385 ml # Voids 3 2 # Bowel Movements 1 Current Medications Medications (Trade) Dose Ordered Sig/Tyler Route PRN Reason Start Time Stop Time Status Last Admin Dose Admin Acetaminophen (Tylenol) 650 mg Q4H PRN ORAL Mild Pain/Temp > 100.5 06/01/19 23:45 07/01/19 23:44 06/02/19 05:11 Albuterol/ Ipratropium (Albuterol/ Ipratropium) 3 ml Q4H PRN HHN Shortness of Breath 06/01/19 23:45 06/06/19 23:44 Amlodipine Besylate (Norvasc) 10 mg DAILY ORAL 06/03/19 09:00 07/03/19 08:59 06/03/19 08:29 Azithromycin (Zithromax) 500 mg DAILY ORAL 06/03/19 09:00 06/10/19 08:59 06/03/19 08:29 Clonidine HCl (Catapres Tab) 0.1 mg EVERY 8 HOURS ORAL 06/03/19 14:00 07/03/19 13:59 06/03/19 22:15 Clonidine HCl (Catapres Tab) 0.1 mg Q4H PRN ORAL bp over 165 syst 06/02/19 22:00 07/02/19 21:59 Heparin Sodium (Porcine) (Heparin 5000 units/ml) 5,000 units EVERY 12 HOURS SUBQ 06/02/19 09:00 07/02/19 08:59 06/03/19 08:34 Ondansetron HCl (Zofran) 4 mg Q8H PRN IVP Nausea & Vomiting 06/02/19 00:00 07/02/19 00:00 Prednisone (predniSONE) 40 mg DAILY ONCE ORAL 06/04/19 09:00 06/04/19 09:01 Adelso Sanches MD Jun 03, 2019 22:57
--- NOTE | 2019-06-04 07:20 | NUR ---
NURSE NOTES: received report form NASEEM Naranjo,. pATIENT Addendum: 06/04/19 at 0804 by Michelle Mario RN Patient in bed, eating breakfast. On room air, no signs of distress or labored breathing. NO IV access, MD aware. Bed in lowest position with call light in reach. Will continue with plan of care.
--- NOTE | 2019-06-04 07:27 | NUR ---
HAND-OFF: Report given to Michelle GUSMAN.
[2019-06-04 08:00] VITALS: BP 130/88
[2019-06-04] MEDS: Azithromycin 250mg tab ORAL SCH (08:32)
[2019-06-04 08:54] LABS: APPEARANCE,URINE CLEAR; BILIRUBIN, URINE NEGATIVE (NEGATIVE); COLOR,URINE PALE YELLOW; GLUCOSE, URINE (UA) NEGATIVE (NEGATIVE); KETONES,URINE NEGATIVE (NEGATIVE); LEUKOCYTE ESTERASE ,URINE NEGATIVE (NEGATIVE); NITRITE,URINE NEGATIVE (NEGATIVE); PH,URINE 6 (4.5-8.0); PROTEIN,URINE NEGATIVE (NEGATIVE); UROBILINOGEN,URINE NORMAL MG/DL (0.0-1.0)
[2019-06-04] MEDS: Heparin 5000 units/ml inj SUBQ SCH ×2 (09:00→21:00)
--- NOTE | 2019-06-04 11:19 | Nephrology Progress Note ---
Assessment/Plan Problem List: (1) COPD exacerbation (2) Anemia (3) HTN (hypertension) Assessment exacerbation COPD- HTN- Anemia Plan refused blood draw BP meds 2 D echo Anemia espino per pulmonary taper steroids as possible Subjective ROS Limited/Unobtainable: No Constitutional: Reports: malaise, weakness Objective Objective Last 24 Hour Vital Signs Date Time Temp Pulse Resp B/P (MAP) Pulse Ox O2 Delivery O2 Flow Rate FiO2 06/04/19 08:33 92 130/88 06/04/19 05:25 134/78 06/03/19 22:15 151/76 06/03/19 21:14 Room Air 06/03/19 20:35 Room Air 21 06/03/19 20:00 98.1 96 20 133/81 (98) 98 06/03/19 16:00 98.0 85 20 131/80 (97) 96 06/03/19 13:56 124/84 06/03/19 13:54 89 124/84 (97) 06/03/19 12:00 97.5 74 20 152/90 (110) 97 Intake and Output 06/03/19 06/04/19 19:00 07:00 Intake Total 720 ml Balance 720 ml Intake Oral 720 ml # Voids 3 Laboratory Tests 06/04/19 08:30: Urine Color Pale yellow, Urine Appearance Clear, Urine pH 6, Urine Specific [place] 1.015, Urine Protein Negative, Urine Glucose (UA) Negative, Urine Ketones Negative, Urine Blood Negative, Urine Nitrite Negative, Urine Bilirubin Negative, Urine Urobilinogen Normal, Urine Leukocyte Esterase Negative, Urine RBC 0-2, Urine WBC 0-2, Urine Squamous Epithelial Cells Few, Urine Bacteria Few Height (Feet): 5 Height (Inches): 4.00 Weight (Pounds): 301 General Appearance: no apparent distress Cardiovascular: tachycardia Respiratory/Chest: decreased breath sounds Abdomen: distended, other - obese Herb Salas MD Jun 04, 2019 11:19
[2019-06-04 12:00] VITALS: BP 134/74
--- NOTE | 2019-06-04 12:53 | NUR ---
DISCHARGE SWALLOW/SPEECH THERAPY SUMMARY: SEEN FOR DYSPHAGIA, SEE SWALLOW EVAL REPORT. PATIENT INTAKE POOR FOR DOWNGRADED DIET AND SHE IS EATING MASTICATED SOLID FOODS FROM OUTSIDE OF HOSPITAL (AGAINST MEDICAL ADVICE). PER RD PT ON A CARDIAC AND CCHO-LOW DIET TYPE. WILL CLEAR PT FOR SOFT CHEW DIET SINCE SHE REPORTEDLY CAN TOLERATE THIS CONSISTENTLY. PATIENT NOT RECEPTIVE TO MOD BARIUM SWALLOW STUDY. PATIENT AND HER ADVISED TO FOLLOW ASPIRATION PRECAUTIONS IT RELATES TO SOB (NEEDS TO REST SO SHE DOES NOT INHALE THIN LIQUIDS) STAFF EDUCATED/UPDATED IN ASPIRATION PRECAUTIONS AND DIET CHANGES. PLAN: D/C FROM [facility] SINCE SWALLOW IS GROSSLY FUNCTIONAL
--- NOTE | 2019-06-04 13:28 | Infectious Diseases Prog Note ---
Assessment/Plan Assessment/Plan IMPRESSION: 1. Asthma. 2. COPD exacerbation. 3. Leukocytosis. 4. Morbid obesity. 5. Hyperglycemia likely secondary to steroids. 6. Acute kidney injury. RECOMMENDATION: Continue Zithromax f/u labs Subjective ROS Limited/Unobtainable: No Constitutional: Reports: no symptoms Respiratory: Reports: no symptoms Cardiovascular: Reports: no symptoms Gastrointestinal/Abdominal: Reports: no symptoms Genitourinary: Reports: no symptoms Allergies: Coded Allergies: No Known Allergies (Unverified , 06/01/19) Objective Vital Signs Last 24 Hour Vital Signs Date Time Temp Pulse Resp B/P (MAP) Pulse Ox O2 Delivery O2 Flow Rate FiO2 06/04/19 12:00 98.3 94 19 134/74 (94) 98 06/04/19 08:33 92 130/88 06/04/19 08:00 98.3 92 19 130/88 (102) 98 06/04/19 05:25 134/78 06/03/19 22:15 151/76 06/03/19 21:14 Room Air 06/03/19 20:35 Room Air 21 06/03/19 20:00 98.1 96 20 133/81 (98) 98 06/03/19 16:00 98.0 85 20 131/80 (97) 96 06/03/19 13:56 124/84 06/03/19 13:54 89 124/84 (97) Height (Feet): 5 Height (Inches): 4.00 Weight (Pounds): 301 General Appearance: other - obese Respiratory/Chest: lungs clear Cardiovascular: normal rate Abdomen: soft, non tender Extremities: no edema Neurologic/Psychiatric: alert, responsive Laboratory Tests Test 06/04/19 08:30 Urine Color Pale yellow Urine Appearance Clear Urine pH 6 (4.5-8.0) Urine Specific [place] 1.015 (1.005-1.035) Urine Protein Negative (NEGATIVE) Urine Glucose (UA) Negative (NEGATIVE) Urine Ketones Negative (NEGATIVE) Urine Blood Negative (NEGATIVE) Urine Nitrite Negative (NEGATIVE) Urine Bilirubin Negative (NEGATIVE) Urine Urobilinogen Normal MG/DL (0.0-1.0) Urine Leukocyte Esterase Negative (NEGATIVE) Urine RBC 0-2 /HPF (0 - 2) Urine WBC 0-2 /HPF (0 - 2) Urine Squamous Epithelial Cells Few /LPF (NONE/OCC) Urine Bacteria Few /HPF (NONE) Current Medications Medications (Trade) Dose Ordered Sig/Tyler Route PRN Reason Start Time Stop Time Status Last Admin Dose Admin Acetaminophen (Tylenol) 650 mg Q4H PRN ORAL Mild Pain/Temp > 100.5 06/01/19 23:45 07/01/19 23:44 06/02/19 05:11 Albuterol/ Ipratropium (Albuterol/ Ipratropium) 3 ml Q4H PRN HHN Shortness of Breath 06/01/19 23:45 06/06/19 23:44 Amlodipine Besylate (Norvasc) 10 mg DAILY ORAL 06/03/19 09:00 07/03/19 08:59 06/04/19 08:33 Azithromycin (Zithromax) 500 mg DAILY ORAL 06/03/19 09:00 06/10/19 08:59 06/04/19 08:32 Clonidine HCl (Catapres Tab) 0.1 mg EVERY 8 HOURS ORAL 06/03/19 14:00 07/03/19 13:59 06/04/19 05:25 Clonidine HCl (Catapres Tab) 0.1 mg Q4H PRN ORAL bp over 165 syst 06/02/19 22:00 07/02/19 21:59 Heparin Sodium (Porcine) (Heparin 5000 units/ml) 5,000 units EVERY 12 HOURS SUBQ 06/02/19 09:00 07/02/19 08:59 06/03/19 08:34 Ondansetron HCl (Zofran) 4 mg Q8H PRN IVP Nausea & Vomiting 06/02/19 00:00 07/02/19 00:00 Anotnio Heard MD Jun 04, 2019 13:28
--- NOTE | 2019-06-04 13:58 | NUR ---
*-* INSURANCE *-* ALL CLINICALS HAVE BEEN FAXED TO: Juan Carlos Ibrahim Ref# or TIFFANIE putnam fax#[phone] & [facility] Ref#[id number] ph#[phone]
[2019-06-04 16:00] VITALS: BP 131/76
--- NOTE | 2019-06-04 16:07 | Pulmonology Progress Note ---
Assessment/Plan Assessment/Plan Pulmonary Progress Note HPI Patient is a 68 year old woman admiotted complaining of severe dyspnea and wheezing. She has a history of asthma. Has been using PRN Albuterol only. The patient previously had some upper back pain which is worsened with the cough. No infiltrates on CXR. No fevers, chills, sore throat, chest pain, palpitations, nausea, vomiting, diarrhea, dysuria, abdominal pain, joint pain, rashes, depression, anxiety, visual changes, dizziness, headache. Less SOB Allergies: No Known Allergies Past Medical History: Asthma, Hypertension Physical Exam Vital Signs Noted General Appearance: well appearing, no apparent distress, GCS 15 Head: normocephalic Eyes: bilateral eye normal inspection, bilateral eye PERRL, bilateral eye EOMI ENT: moist mucus membranes Neck: supple Respiratory: chest non-tender, CTAB Cardiovascular: regular rate, rhythm, HS1, HS2, RRR Gastrointestinal: normal inspection, normal bowel sounds, non tender, no mass, non-distended, overweight Musculoskeletal: back normal, normal range of motion, no calf tenderness, Ahsa 's Sign negative Neurologic: alert, oriented x3, grossly normal Skin: no rash, warm/dry, no edema Impression: COPD/Asthma exacerbation Possible Chest Infection No infiltrate on CXR History of Hypertension Plan: PO Prednisone - wean as tolerated - Prednisone dose pack, Symbicort on DC ( Provided PPX) HHN Q4 Leukocytosis. 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 Laboratory Tests Noted Test 06/01/19 21:00 White Blood Count 13.1 K/UL (4.8-10.8) H Red Blood Count 4.42 M/UL (4.20-5.40) Hemoglobin 11.9 G/DL (12.0-16.0) L Hematocrit 36.9 % (37.0-47.0) L Mean Corpuscular Volume 83 FL (80-99) Mean Corpuscular Hemoglobin 26.9 PG (27.0-31.0) L Mean Corpuscular Hemoglobin Concent 32.3 G/DL (32.0-36.0) Red Cell Distribution Width 13.0 % (11.6-14.8) Platelet Count 374 K/UL (150-450) Mean Platelet Volume 5.6 FL (6.5-10.1) L Neutrophils (%) (Auto) 81.3 % (45.0-75.0) H Lymphocytes (%) (Auto) 12.3 % (20.0-45.0) L Monocytes (%) (Auto) 4.1 % (1.0-10.0) Eosinophils (%) (Auto) 1.4 % (0.0-3.0) Basophils (%) (Auto) 0.9 % (0.0-2.0) Prothrombin Time 10.3 SEC (9.30-11.50) Prothrombin Time INR 1.0 (0.9-1.1) PTT 31 SEC (23-33) Sodium Level 140 MMOL/L (136-145) Potassium Level 4.2 MMOL/L (3.5-5.1) Chloride Level 104 MMOL/L (98-107) Carbon Dioxide Level 29 MMOL/L (21-32) Anion Gap 7 mmol/L (5-15) Blood Urea Nitrogen 16 mg/dL (7-18) Creatinine 1.1 MG/DL (0.55-1.30) Estimate Glomerular Filtration Rate 49.3 mL/min (>60) Glucose Level 120 MG/DL (74-106) H Lactic Acid Level 1.00 mmol/L (0.4-2.0) Calcium Level 9.5 MG/DL (8.5-10.1) Total Bilirubin 0.2 MG/DL (0.2-1.0) Aspartate Amino Transferase (AST) 13 U/L (15-37) L Alanine Aminotransferase (ALT) 17 U/L (12-78) Alkaline Phosphatase 110 U/L (46-116) Total Creatine Kinase 47 U/L (26-308) Troponin I 0.000 ng/mL (0.000-0.056) Pro-B-Type Natriuretic Peptide 217 pg/mL (0-125) H Total Protein 8.3 G/DL (6.4-8.2) H Albumin 3.1 G/DL (3.4-5.0) L Globulin 5.2 g/dL Albumin/Globulin Ratio 0.6 (1.0-2.7) L EKG: Rate: normal Rhythm: NSR ST Segments: no acute changes Chest X-Ray: no consolidation, no effusion, no pneumothorax Subjective ROS Limited/Unobtainable: No Allergies: Coded Allergies: No Known Allergies (Unverified , 06/01/19) Objective Last 24 Hour Vital Signs Date Time Temp Pulse Resp B/P (MAP) Pulse Ox O2 Delivery O2 Flow Rate FiO2 06/04/19 14:52 139/69 06/04/19 12:00 98.3 94 19 134/74 (94) 98 06/04/19 08:33 92 130/88 06/04/19 08:00 98.3 92 19 130/88 (102) 98 06/04/19 05:25 134/78 06/03/19 22:15 151/76 06/03/19 21:14 Room Air 06/03/19 20:35 Room Air 21 06/03/19 20:00 98.1 96 20 133/81 (98) 98 Intake and Output 06/03/19 06/04/19 18:59 06:59 Intake Total 720 ml Balance 720 ml Intake Oral 720 ml # Voids 3 Laboratory Tests 06/04/19 08:30: Urine Color Pale yellow, Urine Appearance Clear, Urine pH 6, Urine Specific [place] 1.015, Urine Protein Negative, Urine Glucose (UA) Negative, Urine Ketones Negative, Urine Blood Negative, Urine Nitrite Negative, Urine Bilirubin Negative, Urine Urobilinogen Normal, Urine Leukocyte Esterase Negative, Urine RBC 0-2, Urine WBC 0-2, Urine Squamous Epithelial Cells Few, Urine Bacteria Few Current Medications Medications (Trade) Dose Ordered Sig/Tyler Route PRN Reason Start Time Stop Time Status Last Admin Dose Admin Acetaminophen (Tylenol) 650 mg Q4H PRN ORAL Mild Pain/Temp > 100.5 06/01/19 23:45 07/01/19 23:44 06/02/19 05:11 Albuterol/ Ipratropium (Albuterol/ Ipratropium) 3 ml Q4H PRN HHN Shortness of Breath 06/01/19 23:45 06/06/19 23:44 Amlodipine Besylate (Norvasc) 10 mg DAILY ORAL 06/03/19 09:00 07/03/19 08:59 06/04/19 08:33 Azithromycin (Zithromax) 500 mg DAILY ORAL 06/03/19 09:00 06/10/19 08:59 06/04/19 08:32 Clonidine HCl (Catapres Tab) 0.1 mg EVERY 8 HOURS ORAL 06/03/19 14:00 07/03/19 13:59 06/04/19 14:52 Clonidine HCl (Catapres Tab) 0.1 mg Q4H PRN ORAL bp over 165 syst 06/02/19 22:00 07/02/19 21:59 Heparin Sodium (Porcine) (Heparin 5000 units/ml) 5,000 units EVERY 12 HOURS SUBQ 06/02/19 09:00 07/02/19 08:59 06/03/19 08:34 Ondansetron HCl (Zofran) 4 mg Q8H PRN IVP Nausea & Vomiting 06/02/19 00:00 07/02/19 00:00 Adelso Sanches MD Jun 04, 2019 16:07
--- NOTE | 2019-06-04 16:09 | NUR ---
*-* DISCHARGE PLANNING *-* PATIENT HAS BEEN REFERRED TO: [facility] P: [phone] F: [phone]
--- NOTE | 2019-06-04 19:31 | NUR ---
HAND-OFF: Report given to NASEEM Hunt.
--- NOTE | 2019-06-04 19:35 | NUR ---
NURSE NOTES: Received patient in bed, patient is awake, alert and oriented. Verbally able to make her needs known. Breathing on room air. No SOB or acute distress noted. Call light is within reach, bed is in low position, locked and alarm is on. Will continue to monitor for safety and comfort.
[2019-06-04 20:00] VITALS: BP 134/74
--- NOTE | 2019-06-04 21:06 | General Progress Note ---
Assessment/Plan Problem List: (1) COPD exacerbation ICD Codes: J44.1 - Chronic obstructive pulmonary disease with (acute) exacerbation SNOMED: 377849157 Status: progressing Assessment/Plan: copd exacerbation is improving afebrile reviewed chart not hypoxic Subjective ROS Limited/Unobtainable: Yes Allergies: Coded Allergies: No Known Allergies (Unverified , 06/01/19) Objective Last 24 Hour Vital Signs Date Time Temp Pulse Resp B/P (MAP) Pulse Ox O2 Delivery O2 Flow Rate FiO2 06/04/19 16:00 97.5 75 19 131/76 (94) 99 06/04/19 14:52 139/69 06/04/19 12:00 98.3 94 19 134/74 (94) 98 06/04/19 09:00 Room Air 06/04/19 08:33 92 130/88 06/04/19 08:00 98.3 92 19 130/88 (102) 98 06/04/19 05:25 134/78 06/03/19 22:15 151/76 06/03/19 21:14 Room Air Intake and Output 06/03/19 06/04/19 19:00 07:00 Intake Total 720 ml Balance 720 ml Intake Oral 720 ml # Voids 3 Laboratory Tests 06/04/19 08:30: Urine Color Pale yellow, Urine Appearance Clear, Urine pH 6, Urine Specific [place] 1.015, Urine Protein Negative, Urine Glucose (UA) Negative, Urine Ketones Negative, Urine Blood Negative, Urine Nitrite Negative, Urine Bilirubin Negative, Urine Urobilinogen Normal, Urine Leukocyte Esterase Negative, Urine RBC 0-2, Urine WBC 0-2, Urine Squamous Epithelial Cells Few, Urine Bacteria Few Height (Feet): 5 Height (Inches): 4.00 Weight (Pounds): 301 Cardiovascular: normal rate Respiratory/Chest: lungs clear Abdomen: soft Tae Gama MD Jun 04, 2019 21:06
[2019-06-05] VITALS: BP 115/67
[2019-06-05 04:00] VITALS: BP 124/74
--- NOTE | 2019-06-05 07:20 | NUR ---
HAND-OFF: Report given to NASEEM Quiroz.
--- NOTE | 2019-06-05 07:42 | NUR ---
NURSE NOTES: received report from NASEEM Hunt. patient in bed. alert. oriented. verbally responsive. no respiratory distress noted. no c/o pain at this time. dc planing to home with home health. No IV site. MD is aware. patient does not want any needle procedures. no isolation. ambulatory. bed in the lowest position and locked. call light within reach. will continue to provide plan of care.
[2019-06-05 08:00] VITALS: BP 134/70
[2019-06-05] MEDS: Azithromycin 250mg tab ORAL SCH (08:27)
[2019-06-05] MEDS: Heparin 5000 units/ml inj SUBQ SCH (08:28)
--- NOTE | 2019-06-05 08:31 | NUR ---
NURSE NOTES: patient refused heparin sq. RN explained risks and benefits. Patient said no any kind of needle procedures.
--- NOTE | 2019-06-05 09:56 | Nephrology Progress Note ---
Assessment/Plan Problem List: (1) HTN (hypertension) Assessment: stable (2) COPD exacerbation (3) Anemia Assessment exacerbation COPD- HTN- Anemia Plan refused blood draw BP meds 2 D echo Anemia espino per pulmonary taper steroids as possible not much to add from renal stand Subjective ROS Limited/Unobtainable: No Objective Objective Last 24 Hour Vital Signs Date Time Temp Pulse Resp B/P (MAP) Pulse Ox O2 Delivery O2 Flow Rate FiO2 06/05/19 08:27 75 134/70 06/05/19 08:00 97.7 75 20 134/70 (91) 94 06/05/19 05:34 121/70 06/05/19 04:00 97.2 76 19 124/74 (91) 100 06/05/19 00:00 97.6 70 19 115/67 (83) 100 06/04/19 22:09 134/74 06/04/19 21:00 Room Air 06/04/19 20:00 97.7 79 19 134/74 (94) 100 06/04/19 16:00 97.5 75 19 131/76 (94) 99 06/04/19 14:52 139/69 06/04/19 12:00 98.3 94 19 134/74 (94) 98 Intake and Output 06/04/19 06/05/19 19:00 07:00 Intake Total 360 ml Balance 360 ml Intake Oral 360 ml # Voids 2 3 # Bowel Movements 1 Height (Feet): 5 Height (Inches): 4.00 Weight (Pounds): 301 General Appearance: no apparent distress Cardiovascular: normal rate Abdomen: other - obese Herb Salas MD Jun 05, 2019 09:56
[2019-06-05 12:00] VITALS: BP 131/72
--- NOTE | 2019-06-05 12:22 | NUR ---
CASE MANAGEMENT: REVIEW 68Y/FEMALE PRESENTED TO ED FROM HOME CC: WHEEZING . BACK PAIN SI: COPD . ASTHMA T 98.2 HR 85 RR 18 BP 144/83 SAT 97% ROOM AIR WBC 13.1 IS: SOLU MEDROL IV X1 ATROVENT HHN X1 ALBUTEROL HHN X1 CEFTRIAXONE IV X1 PATIENT ADMITTED TO MED/SURG UNIT 06/04/2019 DCP: PATIENT IS FROM HOME
[2019-06-05 14:16] VITALS: BP 131/72
--- NOTE | 2019-06-05 15:01 | General Progress Note ---
Assessment/Plan Problem List: (1) COPD exacerbation ICD Codes: J44.1 - Chronic obstructive pulmonary disease with (acute) exacerbation SNOMED: 766397791 Status: progressing Assessment/Plan: copd exacerbation is improved dc home w for vitals sign monitering see dc summary for details Subjective ROS Limited/Unobtainable: Yes Allergies: Coded Allergies: No Known Allergies (Unverified , 06/01/19) Objective Last 24 Hour Vital Signs Date Time Temp Pulse Resp B/P (MAP) Pulse Ox O2 Delivery O2 Flow Rate FiO2 06/05/19 14:16 131/72 06/05/19 12:00 98.1 82 18 131/72 (91) 96 06/05/19 09:00 Room Air 06/05/19 08:27 75 134/70 06/05/19 08:00 97.7 75 20 134/70 (91) 94 06/05/19 05:34 121/70 06/05/19 04:00 97.2 76 19 124/74 (91) 100 06/05/19 00:00 97.6 70 19 115/67 (83) 100 06/04/19 22:09 134/74 06/04/19 21:00 Room Air 06/04/19 20:00 97.7 79 19 134/74 (94) 100 06/04/19 16:00 97.5 75 19 131/76 (94) 99 Intake and Output 06/04/19 06/05/19 19:00 07:00 Intake Total 360 ml Balance 360 ml Intake Oral 360 ml # Voids 2 3 # Bowel Movements 1 Height (Feet): 5 Height (Inches): 4.00 Weight (Pounds): 301 Cardiovascular: normal rate Respiratory/Chest: lungs clear Abdomen: soft Tae Gama MD Jun 05, 2019 15:01
--- NOTE | 2019-06-05 16:28 | NUR ---
NURSE NOTES: patient discharged to home with fair condition by family member. no respiratory distress noted no pain at this time. No IV access. MD is aware. RN removed ID. Provided dc packet. RN checked and counted belonging with patient and obtained sign. home health will visit the patient on 06/06/19 as MD ordered. skin intact. RN assisted the patient to the lobby. patient left safely by family car.
--- NOTE | 2019-06-05 17:23 | Pulmonology Progress Note ---
Assessment/Plan Assessment/Plan Pulmonary Progress Note HPI Patient is a 68 year old woman admiotted complaining of severe dyspnea and wheezing. She has a history of asthma. Has been using PRN Albuterol only. The patient previously had some upper back pain which is worsened with the cough. No infiltrates on CXR. No fevers, chills, sore throat, chest pain, palpitations, nausea, vomiting, diarrhea, dysuria, abdominal pain, joint pain, rashes, depression, anxiety, visual changes, dizziness, headache. Less SOB Allergies: No Known Allergies Past Medical History: Asthma, Hypertension Physical Exam Vital Signs Noted General Appearance: well appearing, no apparent distress, GCS 15 Head: normocephalic Eyes: bilateral eye normal inspection, bilateral eye PERRL, bilateral eye EOMI ENT: moist mucus membranes Neck: supple Respiratory: chest non-tender, CTAB Cardiovascular: regular rate, rhythm, HS1, HS2, RRR Gastrointestinal: normal inspection, normal bowel sounds, non tender, no mass, non-distended, overweight Musculoskeletal: back normal, normal range of motion, no calf tenderness, Asha 's Sign negative Neurologic: alert, oriented x3, grossly normal Skin: no rash, warm/dry, no edema Impression: COPD/Asthma exacerbation Possible Chest Infection No infiltrate on CXR History of Hypertension Plan: PO Prednisone - wean as tolerated - Prednisone dose pack, Symbicort on DC ( Provided PPX) HHN Q4 Leukocytosis. Continue PO antibiotics FRINGE MAKER meds PPX O2 PRN Laboratory Tests Noted Test 06/01/19 21:00 White Blood Count 13.1 K/UL (4.8-10.8) H Red Blood Count 4.42 M/UL (4.20-5.40) Hemoglobin 11.9 G/DL (12.0-16.0) L Hematocrit 36.9 % (37.0-47.0) L Mean Corpuscular Volume 83 FL (80-99) Mean Corpuscular Hemoglobin 26.9 PG (27.0-31.0) L Mean Corpuscular Hemoglobin Concent 32.3 G/DL (32.0-36.0) Red Cell Distribution Width 13.0 % (11.6-14.8) Platelet Count 374 K/UL (150-450) Mean Platelet Volume 5.6 FL (6.5-10.1) L Neutrophils (%) (Auto) 81.3 % (45.0-75.0) H Lymphocytes (%) (Auto) 12.3 % (20.0-45.0) L Monocytes (%) (Auto) 4.1 % (1.0-10.0) Eosinophils (%) (Auto) 1.4 % (0.0-3.0) Basophils (%) (Auto) 0.9 % (0.0-2.0) Prothrombin Time 10.3 SEC (9.30-11.50) Prothrombin Time INR 1.0 (0.9-1.1) PTT 31 SEC (23-33) Sodium Level 140 MMOL/L (136-145) Potassium Level 4.2 MMOL/L (3.5-5.1) Chloride Level 104 MMOL/L (98-107) Carbon Dioxide Level 29 MMOL/L (21-32) Anion Gap 7 mmol/L (5-15) Blood Urea Nitrogen 16 mg/dL (7-18) Creatinine 1.1 MG/DL (0.55-1.30) Estimate Glomerular Filtration Rate 49.3 mL/min (>60) Glucose Level 120 MG/DL (74-106) H Lactic Acid Level 1.00 mmol/L (0.4-2.0) Calcium Level 9.5 MG/DL (8.5-10.1) Total Bilirubin 0.2 MG/DL (0.2-1.0) Aspartate Amino Transferase (AST) 13 U/L (15-37) L Alanine Aminotransferase (ALT) 17 U/L (12-78) Alkaline Phosphatase 110 U/L (46-116) Total Creatine Kinase 47 U/L (26-308) Troponin I 0.000 ng/mL (0.000-0.056) Pro-B-Type Natriuretic Peptide 217 pg/mL (0-125) H Total Protein 8.3 G/DL (6.4-8.2) H Albumin 3.1 G/DL (3.4-5.0) L Globulin 5.2 g/dL Albumin/Globulin Ratio 0.6 (1.0-2.7) L EKG: Rate: normal Rhythm: NSR ST Segments: no acute changes Chest X-Ray: no consolidation, no effusion, no pneumothorax Subjective ROS Limited/Unobtainable: No Allergies: Coded Allergies: No Known Allergies (Unverified , 06/01/19) Objective Last 24 Hour Vital Signs Date Time Temp Pulse Resp B/P (MAP) Pulse Ox O2 Delivery O2 Flow Rate FiO2 06/05/19 14:16 131/72 06/05/19 12:00 98.1 82 18 131/72 (91) 96 06/05/19 09:00 Room Air 06/05/19 08:27 75 134/70 06/05/19 08:00 97.7 75 20 134/70 (91) 94 06/05/19 05:34 121/70 06/05/19 04:00 97.2 76 19 124/74 (91) 100 06/05/19 00:00 97.6 70 19 115/67 (83) 100 06/04/19 22:09 134/74 06/04/19 21:00 Room Air 06/04/19 20:00 97.7 79 19 134/74 (94) 100 Intake and Output 06/04/19 06/05/19 18:59 06:59 Intake Total 360 ml Balance 360 ml Intake Oral 360 ml # Voids 2 3 # Bowel Movements 1 Adelso Sanches MD Jun 05, 2019 17:23
--- NOTE | 2019-06-07 08:05 | Discharge Summary ---
Discharge Summary Discharge Summary _ DATE OF ADMISSION: 06/01/2019 DATE OF DISCHARGE: 06/05/2019 DISCHARGED BY: Dr. Gama REASON FOR ADMISSION: 68 years old female with past medical history of asthma, borderline diabetes, morbid obesity, presented to emergency department with wheezing and severe dyspnea. Patient reported the worst attack, she ever had. Patient reported minimally productive cough with colored phlegm. Patient reported upper back pain , worsened with cough . Pain described as aching, pleuritic, 6 out of 10 on a scale 1-10. No radiation. No calf pain or edema. Upon evaluation pulse oximetry was 97% on room air , patient was afebrile. Laboratory work-up revealed mild leukocytosis with WBC 13.1, hemoglobin 11.9 , hematocrit 36.9 , platelet count 374. Stable electrolytes and renal parameters. Lactic acid 1.0. Glucose 120. Stable LFT. Troponin negative. pro BNP 217. EKG revealed sinus rhythm , no acute ischemic changes. Chest x-ray demonstrated no acute cardiopulmonary pathology. In emergency department patient received nebulizing treatment with bronchodilator , started on IV Solu-Medrol and subsequently admitted for further management. CONSULTANTS: pulmonary Dr. Myron VAZQUEZ specialist Dr. Rodney neighborhood coordinator Dr. Salas [facility] COURSE: Patient admitted and started on IV steroids with gradual tapering down. Patient started on empiric antibiotic due to leukocytosis. Bronchodilator treatment provided [id number] and as needed. Supplemental oxygen titrated to keep pulse oximetry above 92%. Pulse oximetry remained stable on room air. DVT prophylaxis provided. Patient gradually was able to be tapered from IV steroid and changed to oral prednisone. Patient was noted to have elevated blood pressure. Patient had an echocardiogram due to elevated blood pressure , which revealed preserved ejection fraction , no evidence of wall motion abnormality to the extent visualized. Right ventricular systolic pressure of 14. Mild left ventricular hypertrophy. Blood pressure was managed with calcium channel zia , and clonidine was on board as needed. Blood pressure stabilized with current regimen prior to discharge 131/72. Patient was continued on empiric antibiotic for possible infection. No fevers. Patient noted to have hyperglycemia, likely secondary to steroids. Patient provided no concentrated sweets diet. Steroids tapered fast as permitted. Renal parameters and electrolytes were closely monitored. Creatinine up to 1.4, likely due to steroids, IV steroids changed to oral /for Medrol dose pack. Repeat creatinine as outpatient. Patient clinically stabilized and was ready for discharge home with home health services. Prescription for Medrol Dosepak and Symbicort inhaler provided by veterinary assistant. FINAL DIAGNOSES: COPD exacerbation Asthma Hypertension Morbid obesity Leukocytosis Acute kidney injury Hyperglycemia , likely secondary to steroid DISCHARGE MEDICATIONS: See Medication Reconciliation list. DISCHARGE INSTRUCTIONS: Patient was discharged home with home health services. Follow up with primary care provider in one week. I have been assigned to dictate discharge summary for this account. I was not involved in the patient's management. Chula Love NP Jun 07, 2019 08:05
--- NOTE | 2019-06-07 10:52 | Cardiology Report ---
APPROVED REPORT EXAM: Two-dimensional and M-mode echocardiogram with Doppler and color Doppler. INDICATION Congestive Heart Failure M-Mode DIMENSIONS IVSd1.3 (0.7-1.1cm)Left Atrium (MM)4.2 (1.6-4.0cm) LVDd5.1 (3.5-5.6cm)Aortic Root3.6 (2.0-3.7cm) PWd1.0 (0.7-1.1cm)Aortic Cusp Exc.1.9 (1.5-2.0cm) IVSs1.8 cm LVDs3.0 (2.5-4.0cm) PWs1.2 cm Technically difficult study due to pt's body habitus. Normal left ventricular chamber size, systolic function and abnormal wall motion to extent visualized. Left ventricular ejection fraction estimated to be 55 %. Mild left ventricular hypertrophy. Anterior Echo-free space, may be due to pericardial fat or effusion. All other cardiac chamber sizes are within normal limits. Focal aortic valve sclerosis with adequate cusp excursion. Thickened mitral valve leaflets with normal excursion. Mitral annulus and aortic root calcification. Normal pulmonic valve structure. Normal tricuspid valve structure. IVC at normal size with physiologic collapse. A color flow and spectral Doppler study was performed and revealed: No aortic insufficiency. Trace mitral regurgitation. Mitral diastolic velocities suggest reduced left ventricular relaxation c/w mild LV diastolic dysfunction (Grade I ) Mild tricuspid regurgitation. Tricuspid systolic velocities suggests peak right ventricular systolic pressure of 14 mmHg.
--- NOTE | 2019-06-07 13:32 | NUR ---
*-* INSURANCE *-* ALL CLINICALS HAVE BEEN FAXED TO: Juan [facility] Ibrahim Ref# or TIFFANIE yet fax#[phone] & [employer] Ref#[id number] ph#[phone] Addendum: 06/08/19 at 1415 by EDDY FLORES CM DISCHARGE SUMMARY FAXED
== END 2019-06-05 16:14 | disposition home health service (06) | DRG 140 ==
LOC: EMR 20:50 → 4E 22:00 → OBSVTOIN 22:00 → EDBEDREQ 22:23
DX: J44.1 Chronic obstructive pulmonary disease with (acute) exacerbation (principal); N17.9 Acute kidney failure, unspecified; E66.01 Morbid (severe) obesity due to excess calories; Z68.43 Body mass index [BMI] 50.0-59.9, adult; Z87.891 Personal history of nicotine dependence; R73.9 Hyperglycemia, unspecified; T38.0X5A Adverse effect of glucocorticoids and synthetic analogues, initial encounter; D72.829 Elevated white blood cell count, unspecified; I10 Essential (primary) hypertension
CPT/HCPCS: 36415; 71045; 80048; 80053; 81001; 82550; 83605; 83880; 84484; 85025; 85610; 85730; 93005; 93306; 94640; 96374; 99285

== ENCOUNTER 2019-09-23 08:24 | Inpatient (IN) | payer MEDICAID, MEDICARE ==
[~2019-09-23] VITALS: Ht 160 cm; Wt 119.7 kg
[~2019-09-23 08:24] MED LIST: NKM
--- NOTE | 2019-09-23 08:41 | NUR ---
ED Nurse Note: Pt walked into ED w/ c/o SOB for 1 day. Pt states asthma machine broken at home. Current O2 is 95% RA. Pt lung sounds clear to auscultation bilaterally. Pt has hx of asthma and COPD. Pt states she fell at home on friday and injured R wrist. R wrist pain 04/13 and ROM 08/08. Pt denies numbness/pain. Pt is alert and orientedx4, uses W/C. Pt set up on monitor.
[2019-09-23 09:09] VITALS: BP 137/78
--- NOTE | 2019-09-23 09:37 | Emergency Room Report ---
History of Present Illness General Chief Complaint: Dyspnea/Respdistress Source: Patient, Significant Other Present Illness HPI Patient presents reporting that she is having a ' flareup of my asthma' Denies any chest pain she reports that walking back to her room Or any short exertion causes increased shortness of breath Patient denies any vomiting or diarrhea she has had a mild cough denies any recent travel denies any pleurisy Denies any fevers Denies any change in medications recently Later on the history patient also reports that she had a fall mechanical injuring her right hand and forearm Allergies: Coded Allergies: No Known Allergies (Unverified , 06/01/19) Patient History Past Medical History: see triage record Reviewed Nursing Documentation: PMH: Agreed; PSxH: Agreed Nursing Documentation-PMH Hx Asthma: Yes Hx COPD: Yes Review of Systems All Other Systems: negative except mentioned in HPI Physical Exam Vital Signs Date Time Temp Pulse Resp B/P (MAP) Pulse Ox O2 Delivery O2 Flow Rate FiO2 09/23/19 08:35 98.4 95 22 131/73 (92) 98 Room Air 09/23/19 09:09 99 Sp02 EP Interpretation: reviewed, normal General Appearance: other - Morbidly obese Head: normocephalic, atraumatic Eyes: bilateral eye PERRL, bilateral eye EOMI ENT: hearing grossly normal, EOM grossly intact Neck: supple Respiratory: no respiratory distress, no retraction, no accessory muscle use, wheezing - Mild wheezing bilaterally Cardiovascular #1: regular rate, rhythm Musculoskeletal: swelling - And ecchymosis to the right hand and forearm Neurologic: alert, alum mixer III-XII nml as tested Skin: other - As above Lymphatic: normal inspection Procedures Splinting Splinting : Consent: Verbal Location: right forearm Pre-Made Type: velcro Splint: volar Pre-Proc Neuro Vasc Exam: normal Post-Proc Neuro Vasc Exam: normal Patient Tolerated: Well Complications: None Medical Decision Making Diagnostic Impression: Primary Impression: Respiratory distress Additional Impressions: COPD (chronic obstructive pulmonary disease) Distal radial fracture ER Course Patient is a fairly complex patient with multiple differential to consideration including but not limited to cardiac cardiopulmonary and vascular emergencies Patient also complaining of right distal forearm pain x-ray imaging does show acute fracture Patient's breathing has improved however still shows signs of wheezing Patient received multiple treatments orthopedics is consulted and patient admitted for further inpatient care Labs Test 09/23/19 09:40 White Blood Count 10.1 K/UL (4.8-10.8) Red Blood Count 4.53 M/UL (4.20-5.40) Hemoglobin 12.1 G/DL (12.0-16.0) Hematocrit 38.1 % (37.0-47.0) Mean Corpuscular Volume 84 FL (80-99) Mean Corpuscular Hemoglobin 26.6 PG (27.0-31.0) Mean Corpuscular Hemoglobin Concent 31.6 G/DL (32.0-36.0) Red Cell Distribution Width 14.3 % (11.6-14.8) Platelet Count 353 K/UL (150-450) Mean Platelet Volume 5.6 FL (6.5-10.1) Neutrophils (%) (Auto) 70.5 % (45.0-75.0) Lymphocytes (%) (Auto) 19.4 % (20.0-45.0) Monocytes (%) (Auto) 5.9 % (1.0-10.0) Eosinophils (%) (Auto) 3.3 % (0.0-3.0) Basophils (%) (Auto) 0.9 % (0.0-2.0) Sodium Level 141 MMOL/L (136-145) Potassium Level 4.7 MMOL/L (3.5-5.1) Chloride Level 105 MMOL/L (98-107) Carbon Dioxide Level 28 MMOL/L (21-32) Anion Gap 8 mmol/L (5-15) Blood Urea Nitrogen 17 mg/dL (7-18) Creatinine 1.3 MG/DL (0.55-1.30) Estimat Glomerular Filtration Rate 40.5 mL/min (>60) Glucose Level 114 MG/DL (74-106) Calcium Level 9.1 MG/DL (8.5-10.1) Total Bilirubin 0.2 MG/DL (0.2-1.0) Aspartate Amino Transf (AST/SGOT) 16 U/L (15-37) Alanine Aminotransferase (ALT/SGPT) 17 U/L (12-78) Alkaline Phosphatase 83 U/L (46-116) Troponin I 0.000 ng/mL (0.000-0.056) Pro-B-Type Natriuretic Peptide 251 pg/mL (0-125) Total Protein 7.6 G/DL (6.4-8.2) Albumin 3.1 G/DL (3.4-5.0) Globulin 4.5 g/dL Albumin/Globulin Ratio 0.7 (1.0-2.7) Rhythm Strip Diag. Results EP Interpretation: yes Rate: 88 Rhythm: NSR, no PVC's, no ectopy Chest X-Ray Diagnostic Results Chest X-Ray Diagnostic Results : Chest X-Ray Ordered: Yes # of Views/Limited/Complete: 1 View Indication: Chest Pain EP Interpretation: Yes Interpretation: no consolidation, no effusion, other - Pulmonary congestion Impression: Other - Pulmonary congestion Electronically Signed by: Tae Walker DO Other X-Ray Diagnostic Results Other X-Ray Diagnostic Results #1: X-Ray ordered: right hand # of Views/Limited Vs Complete: 3 View Indication: Pain EP Interpretation: Yes Interpretation: no soft tissue swelling, other - Distal radial fracture displacement Impression: Other - Distal radial fracture displaced Electronically Signed by: Tae Walker DO Other X-Ray Diagnostic Results #2: X-Ray ordered: right forearm # of Views/Limited Vs Complete: 2 View Indication: Pain EP Interpretation: Yes Interpretation: no soft tissue swelling, other - Distal radial fracture, displacement Impression: Other - Distal radial fracture displacement Electronically Signed by: Tae Walker DO Last Vital Signs Date Time Temp Pulse Resp B/P (MAP) Pulse Ox O2 Delivery O2 Flow Rate FiO2 09/23/19 09:09 98.4 87 22 137/78 99 Room Air 09/23/19 09:09 99 Status: improved Disposition: ADMITTED INPATIENT Condition: Serious Tae Walker DO Sep 23, 2019 09:37
[2019-09-23] MEDS: Albuterol ud Inhalation HHN SCH ×2 (09:45→09:46)
[2019-09-23 09:55] LABS: BASOPHILS % (AUTO) 0.9 % (0.0-2.0); EOSINOPHILS % (AUTO) 3.3 % (0.0-3.0); HEMATOCRIT 38.1 % (37.0-47.0); HEMOGLOBIN 12.1 G/DL (12.0-16.0); LYMPHOCYTES % (AUTO) 19.4 % (20.0-45.0); MEAN CORPUSCULAR VOLUME 84 FL (80-99); MONOCYTES % (AUTO) 5.9 % (1.0-10.0); NEUTROPHILS % (AUTO) 70.5 % (45.0-75.0); PLATELET COUNT 353 K/UL (150-450); RED BLOOD COUNT 4.53 M/UL (4.20-5.40); RED CELL DISTRIBUTION WIDTH 14.3 % (11.6-14.8); WHITE BLOOD COUNT 10.1 K/UL (4.8-10.8)
[2019-09-23 10:30] LABS: ANION GAP 8 mmol/L (5-15); BLOOD UREA NITROGEN 17 mg/dL (7-18); CALCIUM 9.1 MG/DL (8.5-10.1); CARBON DIOXIDE 28 MMOL/L (21-32); CHLORIDE 105 MMOL/L (98-107); CREATININE 1.3 MG/DL (0.55-1.30); POTASSIUM 4.7 MMOL/L (3.5-5.1); SODIUM 141 MMOL/L (136-145)
[2019-09-23 10:46] LABS: ALANINE AMINOTRANSFERASE 17 U/L (12-78); ALBUMIN 3.1 G/DL (3.4-5.0); ALBUMIN/GLOBULIN RATIO 0.7 (1.0-2.7); ALKALINE PHOSPHATASE 83 U/L (46-116); ASPARTATE AMINO TRANSFERASE 16 U/L (15-37); BILIRUBIN,TOTAL 0.2 MG/DL (0.2-1.0)
--- NOTE | 2019-09-23 11:07 | Diagnostic Imaging Report ---
Indication: Shortness of breath Technique: One view of the chest Comparison: 06/01/2019 Findings: The heart is borderline enlarged. There is atelectasis at the left lung base. There is borderline interstitial congestive change. No focal airspace consolidation. There may be a small right pleural effusion Impression: Borderline cardiomegaly Mild interstitial congestion Possible small right pleural effusion
--- NOTE | 2019-09-23 11:09 | Diagnostic Imaging Report ---
Indications: Pain, trauma Technique: Two views of the right forearm Comparison: None Findings: There is a comminuted posteriorly angulated slightly impacted fracture of the distal radius. No definite associated ulnar fracture. No radiopaque foreign body Impression: Positive for distal radial fracture Findings discussed by phone with Dr. Walker in the emergency room at the time of interpretation
--- NOTE | 2019-09-23 11:11 | Diagnostic Imaging Report ---
Indication: Pain, trauma Technique: 3 views right hand Comparison: Mid and Findings: There is a comminuted impacted posteriorly angulated fracture of the distal radius. The ulna appears intact. No carpal or hand fracture demonstrated. The joint spaces are preserved Impression: Positive for distal radial fracture Findings discussed by phone with Dr. Walker in the emergency room at the time of interpretation
[2019-09-23 11:35] VITALS: BP 115/71
[2019-09-23 14:25] VITALS: BP 113/70
--- NOTE | 2019-09-23 16:51 | Consultation ---
Consult Note Consult Note 69 female with fall on friday and rt wrist pain badly comminuted distal radius fracture d/w pt and family and rec ORIF. will plan on sx tomorrow 1pm. needs med clearance Kat Anaya Sep 23, 2019 16:51
[2019-09-23 17:08] VITALS: BP 118/67
--- NOTE | 2019-09-23 19:13 | NUR ---
ED Nurse Note: pt received from NASEEM Davis. pt is in bed talking on the phone, VSS, she does not appear to be in any distress at this time, safety precautions are in place, will continue to monitor.
[2019-09-23 20:27] VITALS: BP 121/95
--- NOTE | 2019-09-23 21:30 | Consultation ---
DATE OF CONSULTATION: 09/23/2019 HISTORY OF PRESENT ILLNESS: The patient is a pleasant 69-year-old female who had a fall on Friday, sustaining injury to the right hand and wrist. She noted over the last few days it is swollen and painful and she was having trouble moving her fingers back and forth. She also is having some exacerbation of underlying asthma issues and reports to [facility] today for shortness of breath. While at [facility], she mentioned a fall and swelling in her right wrist and got x-rays done, noting a badly comminuted distal radius fracture. Splint was applied and orthopedic consult was obtained for surgical intervention. PAST MEDICAL HISTORY: Asthma. PAST SURGICAL HISTORY: None. CURRENT MEDICATIONS: Please see chart. ALLERGIES: None. SOCIAL HISTORY: She lives at home. She has a daughter and a grandson and is independent with all activities. PHYSICAL EXAMINATION: GENERAL: She is very pleasant on examination. She is alert and oriented. She is in a well-padded splint on the right upper extremity. She is able to wiggle her fingers, although she has a lot of swelling in the hand. She is able to make a fist. She is neurovascularly intact. LABORATORY AND DIAGNOSTIC DATA: X-ray of the wrist reviewed with badly comminuted and displaced distal radius fracture. IMPRESSION: Right wrist badly comminuted distal radius fracture. DISCUSSION: At this time, I discussed with the patient and her family at the bedside my findings. I recommend at this point going forward with surgical intervention including right wrist open reduction, internal fixation with volar plates and screws. They would like to get that done. She is a right-handed woman and having a hard time doing her activities at this point and she understands that if we leave the fracture alone and allow it to heal in the position that it is in, she will have very poor result with long-term complications. She opted therefore to have surgery. We will ensure that she has appropriate preoperative medical clearance given her comorbid conditions and we will prepare her for surgery tomorrow afternoon. Risks of surgery including nerve injury, vessel injury, infection, bleeding were discussed with her. Risk of additional fractures, hardware failures, additional bone injury, painful hardware down the line and possible need for revision surgery was also discussed with her. She understands what this involved and the complications associated with this. She also understands risk of anesthesia and risk of morbidity with surgery. We will ensure she has appropriate medical clearance, order 2D echo and have her cleared by primary team and will proceed with surgery as planned tomorrow. This was all discussed with the patient and family at bedside who agrees with this plan. Horace Jacob M.D. Osvaldo Bush DR: Elmer JOB#: [id number] CC:
--- NOTE | 2019-09-23 22:09 | NUR ---
ED Nurse Note: call made to Dr. Strickland for inpatient orders. voicemail instructed to send Dr a text message, message sent regarding orders. will continue to wait for inpatient orders.
[2019-09-23 22:20] VITALS: BP 130/87
--- NOTE | 2019-09-23 22:53 | NUR ---
ED Nurse Note: pt helped onto bedside cammode without complications. pt denies any pain or other symptoms at this time. daughter is at bedside
[2019-09-23] MEDS ORDERED: VENTOLIN HFA18 GM INH (23:19)
--- NOTE | 2019-09-23 23:21 | NUR ---
TRANSFER TO FLOOR: Patient transferred to as ordered, per ERMD. Report given to NASEEM Urbina. Belongings sent with pt. daughter is at bedside and aware of transfer
[2019-09-24] VITALS (10 sets, daily range): BP systolic 136–196; BP diastolic 65–104
--- NOTE | 2019-09-24 | NUR ---
NURSE NOTES: Received report from MYKE Gutierrez RN. Pt in stable condition, denies pain, a/ox4, daughter at bedside. VS WNL. Will start plan of care and close monitoring.
[2019-09-24] MEDS ORDERED: Ipratropium 0.02% Inh Soln 2.5ml UD HHN PRN (03:15)
[2019-09-24] MEDS ORDERED: Albuterol/Ipratropium 3ml neb HHN PRN (03:15)
--- NOTE | 2019-09-24 06:47 | Anethesia Preoperative Eval ---
Anesthesia Pre-op PMH/ROS General Date of Evaluation: Sep 24, 2019 Time of Evaluation: 06:29 Anesthesiologist: Aracelis ASA Score: ASA 3 Mallampati Score Class I : Soft palate, uvula, fauces, pillars visible Class II: Soft palate, uvula, fauces visible Class III: Soft palate, base of uvula visible Class IV: Only hard plate visible Mallampati Classification: Class III Surgeon: Cecil Diagnosis: R Wrist Pain Surgical Procedure: R Wrist ORIF Anesthesia History: none Family History: no anesthesia problems Allergies: Coded Allergies: No Known Allergies (Unverified , 06/01/19) Medications: see eMAR Patient NPO?: Yes Past Medical History Cardiovascular: Reports: HTN Pulmonary: Reports: asthma, COPD Endocrine: Reports: DM Anesthesia Pre-op Phys. Exam Physician Exam Last Vital Signs Date Time Temp Pulse Resp B/P (MAP) Pulse Ox O2 Delivery O2 Flow Rate FiO2 09/24/19 04:00 2.0 09/24/19 04:00 88 09/24/19 03:23 Nasal Cannula 09/23/19 23:35 98.4 21 130/87 99 21 Constitutional: NAD Neurologic: CN 2-12 intact Cardiovascular: RRR Respiratory: CTA Gastrointestinal: S/NT/ND Airway Exam Mallampati Score: Class III MO: limited ROM: limited Teeth: missing, intact Anesthesia Pre-op A/P Labs Hematology Test 09/23/19 09:40 White Blood Count 10.1 K/UL (4.8-10.8) Red Blood Count 4.53 M/UL (4.20-5.40) Hemoglobin 12.1 G/DL (12.0-16.0) Hematocrit 38.1 % (37.0-47.0) Mean Corpuscular Volume 84 FL (80-99) Mean Corpuscular Hemoglobin 26.6 PG (27.0-31.0) L Mean Corpuscular Hemoglobin Concent 31.6 G/DL (32.0-36.0) L Red Cell Distribution Width 14.3 % (11.6-14.8) Platelet Count 353 K/UL (150-450) Mean Platelet Volume 5.6 FL (6.5-10.1) L Neutrophils (%) (Auto) 70.5 % (45.0-75.0) Lymphocytes (%) (Auto) 19.4 % (20.0-45.0) L Monocytes (%) (Auto) 5.9 % (1.0-10.0) Eosinophils (%) (Auto) 3.3 % (0.0-3.0) H Basophils (%) (Auto) 0.9 % (0.0-2.0) Chemistry Test 09/23/19 09:40 Sodium Level 141 MMOL/L (136-145) Potassium Level 4.7 MMOL/L (3.5-5.1) Chloride Level 105 MMOL/L (98-107) Carbon Dioxide Level 28 MMOL/L (21-32) Anion Gap 8 mmol/L (5-15) Blood Urea Nitrogen 17 mg/dL (7-18) Creatinine 1.3 MG/DL (0.55-1.30) Estimat Glomerular Filtration Rate 40.5 mL/min (>60) Glucose Level 114 MG/DL (74-106) H Calcium Level 9.1 MG/DL (8.5-10.1) Total Bilirubin 0.2 MG/DL (0.2-1.0) Aspartate Amino Transf (AST/SGOT) 16 U/L (15-37) Alanine Aminotransferase (ALT/SGPT) 17 U/L (12-78) Alkaline Phosphatase 83 U/L (46-116) Troponin I 0.000 ng/mL (0.000-0.056) Pro-B-Type Natriuretic Peptide 251 pg/mL (0-125) H Total Protein 7.6 G/DL (6.4-8.2) Albumin 3.1 G/DL (3.4-5.0) L Globulin 4.5 g/dL Albumin/Globulin Ratio 0.7 (1.0-2.7) L Risk Assessment & Plan Assessment: ASA 3 Plan: GA with Block Status Change Before Surgery: No Pre-Antibiotics Drug: Gianni Garcia MD Sep 24, 2019 06:47
--- NOTE | 2019-09-24 07:55 | NUR ---
NURSE NOTES: Received report from NASEEM Banks. Patient in bed resting, no active s/s cardiac, respiratory distress noticed at this time. Patient AOx4, SR with HR 88, on room air. Endorsed patient NPO due to ORIF schedule for today 09/24/19. Family member, Daughter, at the bedside. Bed in lowest position, side rails upx2, call light within reach. Will continue to monitor.
--- NOTE | 2019-09-24 07:55 | NUR ---
HAND-OFF: Report given to Suzy Freire RN. Pt in stable condition.
--- NOTE | 2019-09-24 08:34 | History & Physical ---
History of Present Illness General Reason for Hospitalization: Dyspnea/Respdistress Present Illness Allergies: Coded Allergies: No Known Allergies (Unverified , 06/01/19) Medication History Scheduled Albuterol Sulfate (Ventolin Hfa), 2 PUFFS INH EVERY 6 HOURS, (Reported) No Known Medications* (NKM - No Known Medications*), 0 ., (Reported) Patient History Healthcare decision maker Resuscitation status Full Code Advanced Directive on File Review of Systems Review of Symptoms General ROS: no weight loss or fever Psychological ROS: no depression or mood changes, no memory loss Ophthalmic ROS: no visual changes or eye irritation ENT ROS: no nasal congestion, hearing loss, dizziness Allergy and Immunology ROS: no allergic symptoms or urticaria Hematological and Lymphatic ROS: no swollen glands, unusual bleeding or bruising Endocrine ROS: no polyuria, polydipsia, weight changes, temperature intolerance Respiratory ROS: no cough, shortness of breath, or wheezing Cardiovascular ROS: no chest pain or dyspnea on exertion Gastrointestinal ROS: denies abdominal pain, bright red blood in stool. Musculoskeletal ROS: no myalgias or arthralgias Neurological ROS: no TIA or stroke symptoms Dermatological ROS: no new or changing skin lesions, rashes or pruritis Physical Exam Physical Exam General appearance: alert, cooperative, no distress, appears stated age Head: Normocephalic, without obvious abnormality, atraumatic Eyes: conjunctivae/corneas clear. PERRL, EOM's intact. Fundi benign Throat: Lips, mucosa, and tongue normal. Teeth and gums normal Neck: supple, symmetrical, trachea midline, no adenopathy, thyroid: not enlarged, symmetric, no tenderness/mass/nodules, no carotid bruit and no JVD Lungs: clear to auscultation bilaterally Heart: regular rate and rhythm, S1, S2 normal, no murmur, click, rub or gallop Abdomen: soft, non-tender. Bowel sounds normal. No masses, no organomegaly Extremities: extremities normal, atraumatic, no cyanosis or edema Pulses: 2+ and symmetric Skin: Skin color, texture, turgor normal. No rashes or lesions Neurologic: Grossly normal Last 24 Hour Vital Signs Date Time Temp Pulse Resp B/P (MAP) Pulse Ox O2 Delivery O2 Flow Rate FiO2 09/24/19 04:00 2.0 09/24/19 04:00 88 09/24/19 03:23 Nasal Cannula 2.0 09/24/19 00:00 84 09/23/19 23:35 98.4 89 21 130/87 99 Room Air 21 09/23/19 22:20 89 21 130/87 99 Room Air 21 09/23/19 20:27 85 19 121/95 99 Room Air 09/23/19 17:08 98.4 81 19 118/67 98 Room Air 09/23/19 14:25 98.4 88 20 113/70 97 Room Air 09/23/19 11:35 98.4 84 21 115/71 100 Room Air 09/23/19 09:48 82 26 Room Air 21 09/23/19 09:47 82 26 100 Room Air 21 09/23/19 09:09 98.4 87 22 137/78 99 Room Air 09/23/19 09:09 87 22 Room Air 99 09/23/19 08:35 98.4 95 22 131/73 (92) 98 Room Air Intake and Output 09/23/19 09/24/19 19:00 07:00 Intake Total 0 ml Balance 0 ml Intake Oral 0 ml # Voids 1 Laboratory Tests Test 09/23/19 09:40 White Blood Count 10.1 K/UL (4.8-10.8) Red Blood Count 4.53 M/UL (4.20-5.40) Hemoglobin 12.1 G/DL (12.0-16.0) Hematocrit 38.1 % (37.0-47.0) Mean Corpuscular Volume 84 FL (80-99) Mean Corpuscular Hemoglobin 26.6 PG (27.0-31.0) L Mean Corpuscular Hemoglobin Concent 31.6 G/DL (32.0-36.0) L Red Cell Distribution Width 14.3 % (11.6-14.8) Platelet Count 353 K/UL (150-450) Mean Platelet Volume 5.6 FL (6.5-10.1) L Neutrophils (%) (Auto) 70.5 % (45.0-75.0) Lymphocytes (%) (Auto) 19.4 % (20.0-45.0) L Monocytes (%) (Auto) 5.9 % (1.0-10.0) Eosinophils (%) (Auto) 3.3 % (0.0-3.0) H Basophils (%) (Auto) 0.9 % (0.0-2.0) Sodium Level 141 MMOL/L (136-145) Potassium Level 4.7 MMOL/L (3.5-5.1) Chloride Level 105 MMOL/L (98-107) Carbon Dioxide Level 28 MMOL/L (21-32) Anion Gap 8 mmol/L (5-15) Blood Urea Nitrogen 17 mg/dL (7-18) Creatinine 1.3 MG/DL (0.55-1.30) Estimat Glomerular Filtration Rate 40.5 mL/min (>60) Glucose Level 114 MG/DL (74-106) H Calcium Level 9.1 MG/DL (8.5-10.1) Total Bilirubin 0.2 MG/DL (0.2-1.0) Aspartate Amino Transf (AST/SGOT) 16 U/L (15-37) Alanine Aminotransferase (ALT/SGPT) 17 U/L (12-78) Alkaline Phosphatase 83 U/L (46-116) Troponin I 0.000 ng/mL (0.000-0.056) Pro-B-Type Natriuretic Peptide 251 pg/mL (0-125) H Total Protein 7.6 G/DL (6.4-8.2) Albumin 3.1 G/DL (3.4-5.0) L Globulin 4.5 g/dL Albumin/Globulin Ratio 0.7 (1.0-2.7) L Height (Feet): 5 Height (Inches): 3.00 Weight (Pounds): 264 Medications Current Medications Medications (Trade) Dose Ordered Sig/Tyler Route PRN Reason Start Time Stop Time Status Last Admin Dose Admin Albuterol/ Ipratropium (Albuterol/ Ipratropium) 3 ml Q2HRT PRN HHN Bronchospasm 09/24/19 03:15 09/29/19 03:14 Ipratropium Anita (Atrovent) 500 mcg Q4H PRN HHN Shortness of Breath 09/24/19 03:15 09/29/19 03:14 UNV Sodium Chloride 1,000 ml @ 80 mls/hr [id number] IV 09/24/19 03:15 10/24/19 03:14 09/24/19 03:15 Assessment/Plan Assessment/Plan: H&P Internal Medicine Covering for Dr. Tae Lainez RFA: Right wrist fracture DOS: 09/24/19 ID 69y old female Patient presents reporting that she is having a ' flareup of my asthma' Denies any chest pain she reports that walking back to her room Or any short exertion causes increased shortness of breath Patient denies any vomiting or diarrhea she has had a mild cough denies any recent travel denies any pleurisy Denies any fevers Denies any change in medications recently Later on the history patient also reports that she had a fall mechanical injuring her right hand and forearm I discussed the case with Dr. Horace Russell and he will be doing surgery today at 1pm, approx, the family, milo want a further explanantion of surgery and also of anethesia, they want to know if any "holistic" approaches to anesthesia, I said unlikely but to dw Anesthesia. Allergies: Coded Allergies: No Known Allergies (Unverified , 06/01/19) Patient History Past Medical History: see triage record Reviewed Nursing Documentation: PMH: Agreed; PSxH: Agreed Nursing Documentation-PMH Hx Asthma: Yes Hx COPD: Yes ROS (review of systems): Constitutional: No fever, no chills, no night sweats, no fatigue Skin: No rashes, lumps, itchiness, dryness HEENT: No MADRID, ear ache, visual changes, double vision, nosebleeds Breasts: No lumps, pain, discharge Pulmonary: No cough, sputum, shortness of breath, coughing up blood Cardiovascular: No chest pain, tightness, palpitations, syncope, PND GI: No nausea, vomiting, diarrhea, melena, hematochezia, change in appetite, : No dysuria, frequency, urgency, urinary incontinence, foamy urine Musculoskeletal: No joint swelling or muscle pain, trauma, back pain Neurologic: No dizziness, fainting, seizures, changes in smell or taste Psychiatric: No nervousness, stress, or depression, anxiety, hallucinations Endocrine: No weight change, heat or cold intolerance, tremor, insomnia Physical Exam: Vitals: reviewed General: NAD HEENT: nc, at Neck: supple Chest: clear breath sounds bilaterally Cardiovascular: RRR, no s3, s4 Abdomen: soft, nontender, nd Extremities: no cce, normal range of motion ++ ecchymoses right wrist Neuro: alert and oriented Labs: reviewed Imaging: noted Assesment and Recs: # Right wrist fracture that requires surgery with ortho --> pending potentially as early as today r wrist orif --> asthma control --> cardiac clearance # COPD exacerbation history --> as per Dr. Enriquez # Electrolyte abnormality --> per Dr. Salas # Asthma --> breathing rx and steriods as per Dr. Horace Russell --> requires better control pror to surgery # Hypertension --> dw Cards # Morbid obesity --> recommend weight loss # Hyperglycemia , likely secondary to steroid --> if worse endo Appreciate parts consultant care and dw rn [facility]IPS Hospital declaration INPATIENT level of care is warranted for this patient because patient is a 89 year old with who presents with suspicion of . I have a high level of concern because . Patient is at high risk for . Plan of care/treatment include . Patient care is expected to be greater than 2 midnights. OBSERVATION level of care is warranted for this patient. Patient is a 89 year old with who presents with . Patient will be admitted for 1 midnight, but if additional night(s) is/are necessary, patient will be converted to inpatient status for the entire hospitalization Disposition: Once the patient is stable to leave the hospital, I anticipate the patient will likely be discharged to the following environment: Estimated discharge date: I spent 70 minutes on this patient's case, and minutes was dedicated to counseling and/or care coordination. MIPS (Merit-based Incentive Payment System) Applicable CPT: 90519, 71669 CHECK ALL THAT ARE MET: Measure #5 (CHF): All ages. Prescribe JULIAN/ARB upon discharge for patients with left ventricular systolic dysfunction. If not, the reason is clearly documented in the medical chart. Measure #8 (CHF): All ages. Prescribe a beta zia upon discharge for patients with left ventricular systolic dysfunction. If not, the reason is clearly documented in the medical chart. Measure #47 Advance care plan or surrogate decision maker documented in the medical record. Measure #130 The provider has documented, updated, or reviewed the patients current medication list and has documented it in the patients note. Measure #374 (All): Send report to referring provider. Measure #407(Sepsis due to MSSA bacteremia): Age 18+ Patient treated with a beta-lactam antibiotic (Nafcillin, Oxacillin or Cefazolin) as definitive therapy. MEDICAL COMPLEXITY High complexity medical decision making (need 2/3 categories) Problem - need 4 points Acute/new problem with new plan for workup (4 points, 1 max) Acute/new problem without additional workup (3 points, 1 max) Unstable chronic problem actively being managed (2 point each, 2 max) Stable chronic problem actively being managed (1 point each, 2 max) Self-limited/transient process (constipation, muscle ache, etc) (1 point each , 2 max) Data - need 4 points Reviewed labs/imaging studies (1 points, 2 max) Independent review of imaging (EKG, xrays, etc) (2 points, 2 max) Discussed case with consult/other MD/RN (2 points, 2 max) High Risk - qualify if have one of the following: Severe exacerbation of acute problem, acute mental status change, IV narcotics , monitoring drug levels (vancomycin, INR, tacrolimus etc) Chase Strickland MD Sep 24, 2019 08:34
--- NOTE | 2019-09-24 10:10 | NUR ---
CASE MANAGEMENT: INITIAL REVIEW 09/23/2019 69 YO F PRESENTED TO ED FROM HOME CC: SOB PMHx: COPD. ASTHMA. SI:DYSPNEA. RADIAL FRACTURE. T 98.4 HR 95 RR 22 B/P 131/73 SATS 98% ON RA LABS: GLU 114 BNP 251 ALBUMIN 3.1 IS: ALBUTEROL HHN X1 PREDNISONE PO X1 CXR Impression: Borderline cardiomegaly. Mild interstitial congestion. Possible small right pleural effusion R HAND XRAY Impression: Positive for distal radial fracture R XRAY FOREARM Impression: Positive for distal radial fracture PATIENT ADMITTED TO TELE 09/23/2019 @ 1207 DCP: PATIENT TO BE DISCHARGED TO HOME ONCE MEDICALLY CLEARED. PLAN OF CARE: plan on sx tomorrow 1pm needs med clearance 09/24/2019 SI:DYSPNEA. RADIAL FRACTURE. T 98.4 HR 89 RR 21 B/P 130/87 SATS 99% ON RA LABS: NONE TODAY IS: NS @ 80 mL/HR TELE DCP: PATIENT TO BE DISCHARGED TO HOME ONCE MEDICALLY CLEARED. PLAN OF CARE: SURGERY TODAY Addendum: 09/24/19 at 1025 by Marta Grande INTERQUWA
--- NOTE | 2019-09-24 10:26 | NUR ---
INSURANCE NO INDICATION OF WHERE TO FAX REVIEWS
[2019-09-24 10:35] LABS: HEMOGLOBIN 11.8 G/DL (12.0-16.0); MEAN CORPUSCULAR VOLUME 84 FL (80-99); PLATELET COUNT 255 K/UL (150-450); RED BLOOD COUNT 4.43 M/UL (4.20-5.40); RED CELL DISTRIBUTION WIDTH 14.4 % (11.6-14.8); WHITE BLOOD COUNT 8.6 K/UL (4.8-10.8)
[2019-09-24 10:51] LABS: ANION GAP 12 mmol/L (5-15); BLOOD UREA NITROGEN 18 mg/dL (7-18); CALCIUM 8.5 MG/DL (8.5-10.1); CARBON DIOXIDE 23 MMOL/L (21-32); CHLORIDE 111 MMOL/L (98-107); CREATININE 0.9 MG/DL (0.55-1.30); SODIUM 146 MMOL/L (136-145)
--- NOTE | 2019-09-24 11:53 | NUR ---
NURSE NOTES: Paged Dr. Jacob, regarding consent. Per central office mechanic MD will call family member.
[2019-09-24] MEDS ORDERED: NeoSporin Gu Irrig 1ml Amp IRRIG ONE (12:29)
[2019-09-24] MEDS ORDERED: Bacitracin 50000 Units Vial ONE (12:29)
[2019-09-24] MEDS ORDERED: Bupivacaine w/Epi 0.5% 30ml Vial INJ ONE (12:29)
[2019-09-24] MEDS ORDERED: NS Irrig 1000ml ONE (13:00)
[2019-09-24] MEDS ORDERED: Sterile Water Irrig 1000ml IRRIG ONE (13:00)
[2019-09-24] MEDS ORDERED: LR 1000ml ONE (13:00)
--- NOTE | 2019-09-24 13:00 | Pre-Procedure Note/Attestation ---
Pre-Procedure Note/Attestation Complete Prior to Procedure Planned Procedure: right Procedure Narrative: rt wrist ORIF Indications for Procedure Pre-Operative Diagnosis: rt wrist fracture Attestation I attest that I discussed the nature of the procedure; its benefits; risks and complications; and alternatives (and the risks and benefits of such alternatives ), prior to the procedure, with the patient (or the patient's legal associate sales representative). I attest that, if there was a reasonable possibility of needing a blood transfusion, the patient (or the patient's legal associate sales representative) was given the [facility] standardized written summary, pursuant to the Harrison Maxwell Blood Safety Act ([place] Health and Safety Code # 1645, as amended). I attest that I re-evaluated the patient just prior to the surgery and that there has been no change in the patient's H&P, except as documented below:NONE Horace Jacob MD Sep 24, 2019 13:00
[2019-09-24] MEDS ORDERED: Propofol 200mg/20ml IV ONE (13:01)
[2019-09-24] MEDS ORDERED: Lidocaine 1% MPF 10mg/ml 5ml ONE (13:01)
[2019-09-24] MEDS ORDERED: Sodium Chloride 10ml vial INJ ONE (13:01)
[2019-09-24] MEDS ORDERED: fentaNYL 100 mcg/2 mL IV ONE (13:05)
[2019-09-24] MEDS ORDERED: Midazolam 2mg/2ml Inj ONE (13:05)
[2019-09-24] MEDS ORDERED: HYDROmorphone 1mg/ml Carpuject SUBQ PRN (13:15)
[2019-09-24] MEDS ORDERED: Hydromorphone 0.5mg/0.5ml inj SUBQ PRN (13:15)
[2019-09-24] MEDS ORDERED: HYDROcodone/Acetamin 5/325 tab ORAL PRN ×2 (13:15→13:30)
[2019-09-24] MEDS ORDERED: LR 1000ml 1,000 ML IVLG SCH (13:26)
[2019-09-24] MEDS ORDERED: Labetalol 5mg/ml 20ml vial IV PRN (13:30)
[2019-09-24] MEDS ORDERED: DiphenhydrAMINE 50mg/ml Inj IVP PRN (13:30)
[2019-09-24] MEDS ORDERED: Metoclopramide 10mg/2ml Inj IVP PRN (13:30)
[2019-09-24] MEDS ORDERED: Meperidine 25mg/0.5ml Inj (FOR RIGORS ONLY) IV PRN (13:30)
[2019-09-24] MEDS ORDERED: LORazepam Inj 2mg/ml 1ml IV PRN (13:30)
[2019-09-24] MEDS ORDERED: Midazolam 2mg/2ml Inj IVP PRN (13:30)
[2019-09-24] MEDS ORDERED: fentaNYL 100 mcg/2 mL IV PRN (13:30)
[2019-09-24] MEDS ORDERED: Acetaminophen (Non formulary) 100 ML IV ONE (13:30)
[2019-09-24] MEDS ORDERED: HYDROcodone/Acetamin 7.5/325 tab ORAL PRN (13:30)
[2019-09-24] MEDS ORDERED: oxyCODONE HCL/Acetaminophen 5/325mg ORAL PRN (13:30)
[2019-09-24] MEDS ORDERED: Atropine Sulfate 0.4mg/ml inj IVP PRN (13:30)
--- NOTE | 2019-09-24 13:38 | Immediate Post-Op Evaluation ---
Immediate Post-Op Evalulation Immediate Post-Op Evalulation Procedure: ORIF R Wrist Date of Evaluation: Sep 24, 2019 Time of Evaluation: 15:00 IV Fluids: 200 LR Blood Products: 0 Estimated Blood Loss: 10 Urinary Output: 0 Blood Pressure Systolic: 196 Blood Pressure Diastolic: 104 Pulse Rate: 81 Respiratory Rate: 16 O2 Sat by Pulse Oximetry: 100 Temperature (Fahrenheit): 98.4 Pain Score (1-10): 3 Nausea: No Vomiting: No Complications 0 Patient Status: awake, reacts, patent, extubated, none Hydration Status: adequate Dru Grams Ancef IV Given Within 1 Hr of Incision: Yes Time Given: 13:16 Gianni Hsu MD Sep 24, 2019 13:38
--- NOTE | 2019-09-24 14:27 | NUR ---
*-* INSURANCE *-* ALL CLINICALS AND REVIEWS HAVE BEEN FAXED TO: [facility] P: [phone] F: [phone]
--- NOTE | 2019-09-24 14:32 | Brief Operative Note ---
Immediate Post Operative Note Operative Note Chief Complaint: rt wrist fracture Pre-op Diagnosis: rt wrist fracture Procedure: rt wrist ORIF Post-op Diagnosis: same as pre-op Findings: consistent w/pre-op dx studies Surgeon: md mejia Medical Director Occupational Health: [place] Anesthesiologist: md cheryl Anesthesia: general Specimen: none Complications: none Condition: stable Fluids: ns Estimated Blood Loss: minimal Drains: none Implant(s) used?: Yes - Kat Kay Sep 24, 2019 14:32
[2019-09-24] MEDS: Hydromorphone 0.5mg/0.5ml inj IVP PRN ×2 (15:09→15:29)
--- NOTE | 2019-09-24 15:41 | Cardiology Progress Note ---
Assessment/Plan Assessment/Plan The patient is seen and examined, full consult note will be dictated shortly. Objective Last 24 Hour Vital Signs Date Time Temp Pulse Resp B/P (MAP) Pulse Ox O2 Delivery O2 Flow Rate FiO2 09/24/19 15:30 84 16 178/81 100 Nasal Cannula 3 09/24/19 15:24 97.6 09/24/19 15:21 192/84 09/24/19 15:19 81 16 180/80 100 Nasal Cannula 3 09/24/19 15:09 80 15 187/86 100 Nasal Cannula 3 09/24/19 14:59 82 16 179/91 100 Simple Mask 6 09/24/19 14:54 81 15 178/94 100 Simple Mask 6 09/24/19 14:49 98.4 86 16 196/104 100 Simple Mask 6 09/24/19 14:46 81 16 100 09/24/19 12:00 70 09/24/19 09:00 Nasal Cannula 2.0 09/24/19 08:00 74 09/24/19 08:00 98.1 72 18 160/75 (103) 100 09/24/19 08:00 2.0 09/24/19 04:00 2.0 09/24/19 04:00 88 09/24/19 03:23 Nasal Cannula 2.0 09/24/19 00:00 84 09/23/19 23:35 98.4 89 21 130/87 99 Room Air 21 09/23/19 22:20 89 21 130/87 99 Room Air 21 09/23/19 20:27 85 19 121/95 99 Room Air 09/23/19 17:08 98.4 81 19 118/67 98 Room Air Intake and Output 09/23/19 09/24/19 19:00 07:00 Intake Total 0 ml Balance 0 ml Intake Oral 0 ml # Voids 1 Laboratory Tests Test 09/24/19 10:10 White Blood Count 8.6 K/UL (4.8-10.8) Red Blood Count 4.43 M/UL (4.20-5.40) Hemoglobin 11.8 G/DL (12.0-16.0) L Hematocrit 37.0 % (37.0-47.0) Mean Corpuscular Volume 84 FL (80-99) Mean Corpuscular Hemoglobin 26.6 PG (27.0-31.0) L Mean Corpuscular Hemoglobin Concent 31.8 G/DL (32.0-36.0) L Red Cell Distribution Width 14.4 % (11.6-14.8) Platelet Count 255 K/UL (150-450) Mean Platelet Volume 5.1 FL (6.5-10.1) L Neutrophils (%) (Auto) % (45.0-75.0) Lymphocytes (%) (Auto) % (20.0-45.0) Monocytes (%) (Auto) % (1.0-10.0) Eosinophils (%) (Auto) % (0.0-3.0) Basophils (%) (Auto) % (0.0-2.0) Differential Total Cells Counted 100 Neutrophils % (Manual) 69 % (45-75) Lymphocytes % (Manual) 24 % (20-45) Monocytes % (Manual) 6 % (1-10) Eosinophils % (Manual) 1 % (0-3) Basophils % (Manual) 0 % (0-2) Band Neutrophils 0 % (0-8) Platelet Estimate Adequate Platelet Morphology Normal Hypochromasia 1+ Anisocytosis 1+ Sodium Level 146 MMOL/L (136-145) H Potassium Level 4.0 MMOL/L (3.5-5.1) Chloride Level 111 MMOL/L (98-107) H Carbon Dioxide Level 23 MMOL/L (21-32) Anion Gap 12 mmol/L (5-15) Blood Urea Nitrogen 18 mg/dL (7-18) Creatinine 0.9 MG/DL (0.55-1.30) Estimat Glomerular Filtration Rate > 60 mL/min (>60) Glucose Level 101 MG/DL (74-106) Calcium Level 8.5 MG/DL (8.5-10.1) Leo Cornelius MD Sep 24, 2019 15:41
--- NOTE | 2019-09-24 15:44 | Diagnostic Imaging Report ---
INDICATION: Pain, intraoperative TECHNIQUE: Intraoperative imaging Fluoroscopy time: 14.2 seconds Total dose: 0.12982 mGym2 Total number of images: 4 COMPARISON: 09/23/2019 FINDINGS: Intraoperative images document surgical repair of previously demonstrated distal radial fracture with plate and screws IMPRESSION: Intraoperative imaging, as described
--- NOTE | 2019-09-24 16:10 | NUR ---
NURSE NOTES: Patient transferred from Surgery to Tele. Received report from NASEEM Carmichael. Patient in bed sleeping, drowsy. SR, VS checked. No bleeding from surgery site, no c/o pain at this time, family member at the bedside. Will continue to monitor.
--- NOTE | 2019-09-24 16:58 | Diagnostic Imaging Report ---
Indication: Postoperative, history of right wrist fracture Technique: 2 views of the right wrist Comparison: 09/23/2019 Findings: Patient is status post surgical repair of previously demonstrated distal radial fracture with a plate and screws. There is markedly improved anatomic alignment Impression: Intraoperative imaging, as described
--- NOTE | 2019-09-24 17:15 | Operative Note - Dictated ---
DATE OF OPERATION: 09/24/2019 PREOPERATIVE DIAGNOSIS: Right distal radius fracture with comminution with displacement. POSTOPERATIVE DIAGNOSIS: Right distal radius fracture with comminution with displacement. PROCEDURE: Right wrist open reduction internal fixation using a [place] volar plate with 3 distal screws, 2 of them locking, 1 of them bicortical and 3 proximal screws, 2 of them locking, 1 bicortical. SURGEON: Horace Jacob M.D. APPLICATIONS PROGRAMMER ANALYST: Kat Anaya PA-C. ANESTHESIOLOGIST: Gianni Hsu M.D. ANESTHESIA: General endotracheal anesthesia. ESTIMATED BLOOD LOSS: Less than 50 mL. TOURNIQUET TIME: 45 minutes. COMPLICATIONS: None. BRIEF HISTORY: The patient is a very pleasant 69-year-old female who sustained a fall and had a distal radius fracture. She was evaluated and was noted to have a displaced distal radius fracture. After full discussion of risks, benefits of the surgery and complications associated with it including infection, bleeding, neurovascular complication, possibility of malunion, possibility of nonunion, possibility of need for further surgery, and other complications that may arise, she opted for surgical treatment as described above. OPERATIVE PROCEDURE: The patient was brought to the operating room and was placed supine. All pressure points were well padded. General LMA anesthesia was induced and the right arm was prepped and draped in usual sterile fashion. The right arm was exsanguinated. Tourniquet was inflated to 275 mmHg. A standard volar incision was undertaken. The FCR was identified and was retracted radially. The internervous plane was identified and retractors were placed in. The pronator quadratus was identified and this was released. The fracture was identified. There was significant shortening, displacement, and loss of radial inclination. At this point, using manipulation, the fracture reduced anatomically. The plate was applied and was moved around to the area that had the best bone. This was slightly more radial. Therefore, the plate was positioned slightly radially and had to be rotated so that the proximal screw can catch the shaft of the radius. At this point, the pins were placed and the position of the plate was checked and reduction was checked. The reduction was anatomical and the plate was in satisfactory position. Therefore, a bicortical central screw was placed in and plate was compressed against the bone on the distal fragment. At this point, 2 locking screws, 1 was placed in the styloid and 1 was placed more ulnarly and this stabilized the plate very well. At this point, using the plate, the fracture was reduced and a volar inclination was recreated and clamps were applied. At this point, 1 bicortical screw was placed centrally on the oblique hole. Subsequently, 2 bicortical locking screws were placed in and this provided excellent stability of the fracture. At this point, the position of fracture was checked on AP and lateral and appeared to be perfect. The volar tilt was created. Inclination and length were recreated. The wounds were thoroughly irrigated using copious amount of fluid. The screw lengths were excellent. There was 1 in and out screw, which was proximal, which was long and with a 60 mm screw, that was switched to a 40 mm screw. At this point, all wounds were thoroughly irrigated using copious amount of fluid. The wound was injected with 0.5% Marcaine with epinephrine. The subcutaneous tissue was closed using 2-0 Vicryl suture. Skin was closed using 3-0 Monocryl suture. A sugar-tong splint was applied. All lap counts and instrument counts were correct. Horace Jacob M.D. DR: TERESO JOB#: [id number] CC:
[2019-09-24] MEDS: ceFAZolin sod 1 GM in D5W 55 ML IV SCH (17:44)
[2019-09-24] MEDS: Docusate 100mg cap ORAL SCH (17:44)
--- NOTE | 2019-09-24 18:00 | Consultation ---
DATE OF CONSULTATION: 09/24/2019 CARDIOLOGY CONSULTATION CONSULTING PHYSICIAN: Leo Cornelius M.D. REFERRING PHYSICIAN: Chase Strickland M.D. REASON FOR CONSULTATION: Management of chest pain. HISTORY OF PRESENT ILLNESS: This is a very unfortunate 69-year-old lady who presents to the hospital with complaints of shortness of breath. The patient states that she has been suffering from asthma and most likely she had a flare of this condition. She complains of cough as well as wheezing. She also sustained mechanical fall with no loss of consciousness with which she injured her right hand and forearm. At the time of arrival to this facility, blood pressure was 131/73 mmHg and heart rate was 95. Initial laboratory revealed BUN and creatinine of 17 and 1.3 as well as troponin I level of 0. ProBNP was slightly elevated at 251. The patient had a chest x-ray in the emergency department on 09/23/2019 which showed borderline cardiomegaly with mild interstitial congestion and small right pleural effusion. X-ray of the right hand confirmed distal radial fracture. The patient was admitted to telemetry for further evaluation and management of shortness of breath as well as Orthopedic consultation for right distal radius fracture. Cardiology consultation was made at request of Dr. Strickland to address shortness of breath from cardiac standpoint. PAST MEDICAL HISTORY: Asthma/COPD. FAMILY HISTORY: No premature coronary artery disease in first-degree relatives. PAST SURGICAL HISTORY: None. REVIEW OF SYSTEMS: HEENT: Denies any headache, diplopia, blurred vision. CONSTITUTIONAL: Denies any fever, chills, night sweats, or weight loss. CARDIOVASCULAR: Denies any chest pain. Positive for shortness of breath. Denies any PND, orthopnea, leg swelling, or syncope. PULMONARY: Denies any hemoptysis. Positive for cough and shortness of breath. GASTROINTESTINAL: Denies any nausea, vomiting, diarrhea, constipation, abdominal pain, or GI bleed. GENITOURINARY: Denies any hematuria, dysuria, incontinence. NEUROLOGY: Denies any motor dysfunction, sensory deficit, or altered speech. MUSCULOSKELETAL: Right arm and hand pain. MEDICATIONS: List of medication home includes albuterol inhaler two puffs inhaled every six hours. ALLERGIES: No known drug allergies. SOCIAL HISTORY: Denies any tobacco, alcohol, or illicit drug use. PHYSICAL EXAMINATION: VITAL SIGNS: Blood pressure was 131/73, pulse 95, respirations 22, temperature 98.4 degrees Fahrenheit, O2 saturation 98% on room air. GENERAL: The patient is a very pleasant, 69-year-old female, in no apparent respiratory distress. Alert and oriented x4. HEENT: Atraumatic and normocephalic. Anicteric. Pupils are equal, round, and reactive to light and accommodation. Extraocular muscles intact. NECK: JVP less than 5 centimeter. No carotid bruit. Carotid upstrokes 2+ bilaterally. CVS: Normal S1 and S2. Regular rate and rhythm. No murmurs, gallops, or rubs. PMI is at fourth space in midclavicular line. LUNGS: Clear to auscultation bilaterally. ABDOMEN: Soft, nontender, and nondistended. No hepatosplenomegaly. Positive bowel sounds. EXTREMITIES: No evidence of edema, clubbing, or cyanosis. LABORATORY FINDINGS: WBC 10.1, hemoglobin 12.1, hematocrit 38.1, platelet count is 353. Sodium 141, potassium 4.7, chloride 105, bicarbonate 28, BUN of 17, creatinine 1.3, glucose 114, calcium is 9.1. Troponin I is 0. ProBNP was 251. ASSESSMENT AND PLAN: The patient is a very unfortunate 69-year-old female, seen in Cardiology consultation. 1. Shortness of breath. It is likely due to acute exacerbation of asthma. The patient had 2D echocardiography from her last admission to this facility in May 2019. She had normal LV systolic function with LVEF of 55%. At this time, the patient does not have any active cardiac issues. Troponin I level is 0. A 12-lead electrocardiogram does not show any acute ischemic features. No further cardiac workup is required. 2. Right distal radius fracture, Orthopedic consultation. I would like to thank, Dr. Strickland, for allowing me to participate in the care of this patient. Leo Cornelius M.D. DR: Marvin JOB#: [id number] CC:
--- NOTE | 2019-09-24 18:00 | NUR ---
NURSE NOTES: Per Dr. Strickland, regular diet, modification as tolerated. Order noted, entered, carried out.
--- NOTE | 2019-09-24 19:30 | Consultation ---
DATE OF CONSULTATION: 09/24/2019 PULMONARY CONSULTATION CONSULTING PHYSICIAN: Lamont Enriquez M.D. REFERRING PHYSICIAN: Tae Gama M.D. HISTORY OF PRESENT ILLNESS: This is a 69-year-old female, who presented to the hospital with shortness of breath. The patient also reported a mechanical fall and fracture of her right forearm. She was seen and evaluated by Orthopedics and currently has undergone surgery as well. The patient reports that she has a long-standing history of bronchial asthma. Currently, she states she is feeling better. MEDICATIONS: Her list of medications include aspirin, Ancef, Celebrex, Colace, DuoNeb, hydralazine, [place], and Protonix. ALLERGIES: None reported. CODE STATUS: Full. REVIEW OF SYSTEMS: Denies any headaches, hematemesis, melena, hematochezia, or weight loss. PHYSICAL EXAMINATION: GENERAL: Reveals a 69-year-old female. VITAL SIGNS: Blood pressure is 140/60, heart rate 84, respirations 18, O2 saturation 99% on 2 L of oxygen. HEENT: Unremarkable. LUNGS: Clear breath sounds bilaterally. ABDOMEN: Soft. NEUROLOGIC: Nonfocal. IMAGING STUDIES: Wrist x-ray shows distal radius fracture. X-ray of chest obtained yesterday shows small right effusion and borderline cardiomegaly. IMPRESSION: 1. Bronchial asthma, stable. 2. Status post ORIF, right wrist fracture. 3. . 4. Diabetes mellitus. DISCUSSION: Admit to the hospital. Continue current medications and care. 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 We will order oxygen and pulmonary hygiene. Follow up the steroids. Lab data is reviewed. We will follow carefully. Lamont Enriquez M.D. DR: RUTH ANN JOB#: [id number] CC:
--- NOTE | 2019-09-24 19:30 | NUR ---
NURSE NOTES: Received report from Suzy Freire RN. Pt is in stable condition, will continue plan of care and close monitoring.
--- NOTE | 2019-09-24 19:32 | NUR ---
HAND-OFF: Report given to NASEEM Banks.
[2019-09-24] MEDS: oxyCONTIN 20mg tab ORAL SCH (21:47)
[2019-09-24] MEDS: HydrALAZINE 25mg tab ORAL PRN (23:51)
[2019-09-25] VITALS: BP 191/101
--- NOTE | 2019-09-25 | NUR ---
NURSE NOTES: Pt BP 191/101, VS otherwise WNL, SR. RN admin hydralazine 25mg PO as ordered. Will continue to monitor pt closely.
--- NOTE | 2019-09-25 01:00 | NUR ---
NURSE NOTES: Re assesed pt's bp after admin of PRN hydralazine as ordered. BP 143/89, will continue to monitor closely.
[2019-09-25] MEDS: ceFAZolin sod 1 GM in D5W 55 ML IV SCH ×2 (02:27→10:35)
[2019-09-25 04:00] VITALS: BP 143/89
[2019-09-25 08:00] VITALS: BP 172/87
--- NOTE | 2019-09-25 08:02 | NUR ---
HAND-OFF: Report given to Emili Ford RN. Pt in stable condition.
[2019-09-25] MEDS: celeBREX 200mg Cap **SURGERY PATIENTS ONLY ORAL SCH (09:22)
[2019-09-25] MEDS: Docusate 100mg cap ORAL SCH ×3 (09:23→17:57)
[2019-09-25] MEDS: oxyCONTIN 20mg tab ORAL SCH ×2 (09:24→21:10)
--- NOTE | 2019-09-25 09:29 | 48 Hour Post Anesthesia Eval ---
Post Anesthesia Evaluation Procedure: ORIF R Wrist Date of Evaluation: Sep 25, 2019 Time of Evaluation: 09:27 Blood Pressure Systolic: 156 0: 78 Pulse Rate: 76 Respiratory Rate: 24 Temperature (Fahrenheit): 97.8 O2 Sat by Pulse Oximetry: 97 Airway: patent Nausea: No Vomiting: No Pain Intensity: 3 Hydration Status: adequate Cardiopulmonary Status: stable mild dyspnea at rest, bilateral wheezing over lower lobes Mental Status/LOC: patient returned to baseline Follow-up Care/Observations: n/a Post-Anesthesia Complications: none Follow-up care needed: N/A Andres Hunter MD Sep 25, 2019 09:28
[2019-09-25 12:00] VITALS: BP 181/74
--- NOTE | 2019-09-25 12:25 | Pulmonology Progress Note ---
Assessment/Plan Assessment/Plan IMPRESSION: 1. Bronchial asthma, stable. 2. Status post ORIF, right wrist fracture. 3.DMitus. DISCUSSION: Continue current medications and care. 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 Continue oxygen and pulmonary hygiene. Lamont Enriquez M.D. Subjective Interval Events: None new reported Constitutional: Reports: no symptoms HEENT: Repors: no symptoms Respiratory: Reports: no symptoms Cardiovascular: Reports: no symptoms Gastrointestinal/Abdominal: Reports: no symptoms Allergies: Coded Allergies: No Known Allergies (Unverified , 06/01/19) Objective Last 24 Hour Vital Signs Date Time Temp Pulse Resp B/P (MAP) Pulse Ox O2 Delivery O2 Flow Rate FiO2 09/25/19 09:29 76 24 97 09/25/19 08:46 Nasal Cannula 2.0 09/25/19 08:00 98.7 85 18 172/87 (115) 97 09/25/19 08:00 2.0 09/25/19 07:45 88 09/25/19 04:00 2.0 09/25/19 04:00 93 09/25/19 04:00 97.9 78 23 143/89 (107) 96 09/25/19 00:00 2.0 09/25/19 00:00 95 09/25/19 00:00 97.9 82 23 191/101 (131) 96 09/24/19 23:51 189/101 09/24/19 21:00 Nasal Cannula 3.0 09/24/19 20:00 93 09/24/19 20:00 96.6 90 22 136/82 (100) 95 09/24/19 20:00 2.0 09/24/19 16:00 87 09/24/19 16:00 98.1 88 15 143/65 100 Nasal Cannula 3 09/24/19 16:00 2.0 09/24/19 15:59 98.1 09/24/19 15:45 87 15 140/65 100 Nasal Cannula 3 09/24/19 15:30 84 16 178/81 100 Nasal Cannula 3 09/24/19 15:24 97.6 09/24/19 15:21 192/84 09/24/19 15:19 81 16 180/80 100 Nasal Cannula 3 09/24/19 15:09 80 15 187/86 100 Nasal Cannula 3 09/24/19 14:59 82 16 179/91 100 Simple Mask 6 09/24/19 14:54 81 15 178/94 100 Simple Mask 6 09/24/19 14:49 98.4 86 16 196/104 100 Simple Mask 6 09/24/19 14:46 81 16 100 Intake and Output 09/24/19 09/25/19 19:00 07:00 Intake Total 300 ml 250 ml Output Total 10 ml Balance 290 ml 250 ml IV Total 300 ml Other 250 ml Output Estimated Blood Loss 10 ml # Voids 3 General Appearance: no acute distress HEENT: normocephalic Respiratory/Chest: chest wall non-tender Cardiovascular: normal peripheral pulses Abdomen: normal bowel sounds Current Medications Medications (Trade) Dose Ordered Sig/Tyler Route PRN Reason Start Time Stop Time Status Last Admin Dose Admin Acetaminophen (Tylenol) 650 mg EVERY 6 HOURS PRN ORAL Temp > 100.5 09/24/19 13:15 10/24/19 13:14 Acetaminophen/ Hydrocodone Bitart ([place] 5/325) 1 tab Q4H PRN ORAL Mild Pain (Pain Scale 1-3) 09/24/19 13:15 10/01/19 13:14 Albuterol/ Ipratropium (Albuterol/ Ipratropium) 3 ml Q2HRT PRN HHN Bronchospasm 09/24/19 03:15 09/29/19 03:14 Aspirin (ASA) 325 mg BID ORAL 09/25/19 09:00 10/25/19 08:59 09/25/19 09:23 Celecoxib (CeleBREX) 200 mg DAILY ORAL 09/25/19 09:00 10/25/19 08:59 09/25/19 09:22 Docusate Sodium (Colace) 100 mg THREE TIMES A DAY ORAL 09/24/19 18:00 10/24/19 17:59 09/25/19 09:23 Hydralazine HCl (Apresoline) 25 mg Q6H PRN ORAL For High Blood Pressure 09/24/19 11:45 10/24/19 11:44 09/24/19 23:51 Hydromorphone HCl (Dilaudid) 0.5 mg Q4H PRN SUBQ Moderate Pain (Pain Scale 4-6) 09/24/19 13:15 10/01/19 13:14 Hydromorphone HCl (Dilaudid) 1 mg Q3H PRN SUBQ Severe Pain (Pain Scale 7-10) 09/24/19 13:15 10/01/19 13:14 Oxycodone HCl (OxyCONTIN) 20 mg EVERY 12 HOURS ORAL 09/24/19 21:00 10/01/19 20:59 09/25/19 09:24 Pantoprazole (Protonix) 40 mg EVERY 12 HOURS ORAL 09/24/19 21:00 10/24/19 20:59 09/25/19 09:23 Sodium Chloride 1,000 ml @ 80 mls/hr [id number] IV 09/24/19 03:15 10/24/19 03:14 09/24/19 16:35 Lamont Enriquez MD Sep 25, 2019 12:25
[2019-09-25] MEDS: HydrALAZINE 25mg tab ORAL PRN (13:58)
--- NOTE | 2019-09-25 15:40 | NUR ---
PT Note PT meredith completed, treatment initiated. Patient was lethargic but able to follow instructions. She was able toto come to sit at the EOB and stand with 2-person assist. Patient needs physical therapy to increase her muscle strength and balance to improve her functional mobility to enable her to return home with her . Addendum: 09/25/19 at 1541 by MAGDIEL MURILLO PT Amended: Links added.
[2019-09-25 16:00] VITALS: BP 147/79
--- NOTE | 2019-09-25 17:40 | Cardiology Progress Note ---
Assessment/Plan Assessment/Plan 1. Shortness of breath, likely due to acute exacerbation of asthma, 2D echocardiography with normal LV systolic function with LVEF of 55%. At this time, the patient does not have any active cardiac issues. Troponin I level is 0. A 12-lead electrocardiogram does not show any acute ischemic features. No further cardiac workup is required. 2. Right distal radius fracture, s/p right wrist ORF. Subjective Subjective Sinus rhythm at rate of 73. s/p right wrist ORIF. Objective Last 24 Hour Vital Signs Date Time Temp Pulse Resp B/P (MAP) Pulse Ox O2 Delivery O2 Flow Rate FiO2 09/25/19 16:00 2.0 09/25/19 13:58 181/74 09/25/19 12:00 98.9 73 19 181/74 (109) 97 09/25/19 12:00 2.0 09/25/19 11:30 93 09/25/19 09:29 76 24 97 09/25/19 08:46 Nasal Cannula 2.0 09/25/19 08:00 98.7 85 18 172/87 (115) 97 09/25/19 08:00 2.0 09/25/19 07:45 88 09/25/19 04:00 2.0 09/25/19 04:00 93 09/25/19 04:00 97.9 78 23 143/89 (107) 96 09/25/19 00:00 2.0 09/25/19 00:00 95 09/25/19 00:00 97.9 82 23 191/101 (131) 96 09/24/19 23:51 189/101 09/24/19 21:00 Nasal Cannula 3.0 09/24/19 20:00 93 09/24/19 20:00 96.6 90 22 136/82 (100) 95 09/24/19 20:00 2.0 Intake and Output 09/24/19 09/25/19 19:00 07:00 Intake Total 300 ml 250 ml Output Total 10 ml Balance 290 ml 250 ml IV Total 300 ml Other 250 ml Output Estimated Blood Loss 10 ml # Voids 3 Objective HEENT: Atraumatic and normocephalic. Anicteric. Pupils are equal, round, and reactive to light and accommodation. Extraocular muscles intact. NECK: JVP less than 5 centimeter. No carotid bruit. Carotid upstrokes 2+ bilaterally. CVS: Normal S1 and S2. Regular rate and rhythm. No murmurs, gallops, or rubs. PMI is at fourth space in midclavicular line. LUNGS: Clear to auscultation bilaterally. ABDOMEN: Soft, nontender, and nondistended. No hepatosplenomegaly. Positive bowel sounds. EXTREMITIES: No evidence of edema, clubbing, or cyanosis. Leo Cornelius MD Sep 25, 2019 17:40
--- NOTE | 2019-09-25 19:30 | NUR ---
NURSE NOTES: Received report from NASEEM Mock. Patient is awake and responsive, at times appears drowsy. Breathing regular and unlabored with no S/S of SOB noted at this time. Patient is C/O right sided arm pain, around the clock pain medication has been given per MD orders. IV access is on the L hand, 22G, patent, intact, and running fluids at prescribed rate. Patient has a sling on the R arm per MD orders. Tried to assess for circulation, but patient will not allow. Per the family member "The Doctor saw her and already checked. She doesn't like to be touched." Bed remains in the lowest position, breaks engaged, and call light is within reach at all times. All other needs attended to, patient remains stable, will continue to monitor.
[2019-09-25 20:00] VITALS: BP 155/84
--- NOTE | 2019-09-25 20:03 | NUR ---
HAND-OFF: Report given to NASEEM Huber. Endorsed plan of care.
[2019-09-26] VITALS: BP 149/80
[2019-09-26 04:00] VITALS: BP 150/69
--- NOTE | 2019-09-26 07:16 | NUR ---
HAND-OFF: Report given to NASEEM Andersen. Patient in stable condition. Addendum: 09/26/19 at 0718 by Krystle Blanco RN HAND-OFF: Report given to NASEEM De La Garza. Patient in stable condition.
--- NOTE | 2019-09-26 07:20 | NUR ---
NURSE NOTES: Received bedside report from Jennifer GUSMAN. Pt. in bed, awake, a/o x 4. No sign of distress. C/O mild discomfort at her right arm. Sling in placed. IV at left hand #22g. in placed patent/intact running NS at 80cc/hr. Bed in low position, locked. Call light within reach. Will cont. to monitor.
[2019-09-26 08:00] VITALS: BP 168/82
--- NOTE | 2019-09-26 08:02 | General Progress Note ---
Assessment/Plan Assessment/Plan: Covering Dr. Lainez Assesment and Recs: # Right wrist fracture that requires surgery with ortho --> s/p splint placement and ORIF surgery --> asthma control --> cardiac cleared # COPD exacerbation history --> as per Dr. Enriquez # Anemia of chronic disease --> eval prn basis --> hgb 11 # Electrolyte abnormality --> per Dr. Salas # Asthma --> breathing rx and steriods as per Dr. Horace Russell --> requires better control pror to surgery # Hypertension --> dw Cards # Morbid obesity --> recommend weight loss # Hyperglycemia , likely secondary to steroid --> if worse endo Appreciate service delivery consultant care and dw rn Subjective HEENT: Denies: no symptoms, eye pain, blurred vision, tearing, double vision, ear pain, ear discharge, nose pain, nose congestion, throat pain, throat swelling, mouth pain, mouth swelling, other Cardiovascular: Denies: no symptoms, chest pain, edema, irregular heart rate, lightheadedness, palpitations, syncope, other Respiratory: Denies: no symptoms, cough, orthopnea, shortness of breath, SOB with excertion, SOB at rest, sputum, stridor, wheezing, other Gastrointestinal/Abdominal: Denies: no symptoms, abdomen distended, abdominal pain, black stools, tarry stools, blood in stool, constipated, diarrhea, difficulty swallowing, nausea, poor appetite, poor fluid intake, rectal bleeding , vomiting, other Genitourinary: Denies: no symptoms, burning, discharge, frequency, flank pain, hematuria, incontinence, pain, urgency, other Neurologic/Psychiatric: Denies: no symptoms, anxiety, depressed, emotional problems, headache, numbness, paresthesia, pre-existing deficit, seizure, tingling, tremors, weakness, other Endocrine: Denies: no symptoms, excessive sweating, flushing, intolerance to cold, intolerance to heat, increased hunger, increased thirst, increased urine, unexplained weight gain, unexplained weight loss, other Hematologic/Lymphatic: Denies: no symptoms, anemia, easy bleeding, easy bruising, other Allergies: Coded Allergies: No Known Allergies (Unverified , 06/01/19) Subjective 09/26: no bleeding or chills, breathing treatments prn, hgb lower, fatigued Objective Last 24 Hour Vital Signs Date Time Temp Pulse Resp B/P (MAP) Pulse Ox O2 Delivery O2 Flow Rate FiO2 09/26/19 04:00 2.0 09/26/19 04:00 97 09/26/19 04:00 98.6 93 23 150/69 (96) 96 09/26/19 00:00 2.0 09/26/19 00:00 89 09/26/19 00:00 97.8 92 23 149/80 (103) 95 09/25/19 21:00 Nasal Cannula 2.0 09/25/19 20:00 94 09/25/19 20:00 97.7 97 22 155/84 (107) 95 09/25/19 20:00 2.0 09/25/19 19:59 96 Nasal Cannula 2.0 28 09/25/19 19:59 95 20 96 Nasal Cannula 2.0 28 09/25/19 16:00 2.0 09/25/19 16:00 98.5 87 20 147/79 (101) 98 09/25/19 15:25 85 09/25/19 13:58 181/74 09/25/19 12:00 98.9 73 19 181/74 (109) 97 09/25/19 12:00 2.0 09/25/19 11:30 93 09/25/19 09:29 76 24 97 09/25/19 08:46 Nasal Cannula 2.0 Intake and Output 09/25/19 09/26/19 19:00 07:00 Intake Total 480 ml Balance 480 ml Intake Oral 480 ml # Voids 4 2 Height (Feet): 5 Height (Inches): 3.00 Weight (Pounds): 264 Objective Physical Exam: Vitals: reviewed General: NAD HEENT: nc, at Neck: supple Chest: clear breath sounds bilaterally Cardiovascular: RRR, no s3, s4 Abdomen: soft, nontender, nd Extremities: no cce, normal range of motion ++ ecchymoses right wrist s/p splint Neuro: alert and oriented Chase Strickland MD Sep 26, 2019 08:02
[2019-09-26] MEDS: Docusate 100mg cap ORAL SCH ×3 (08:41→18:00)
[2019-09-26] MEDS: oxyCONTIN 10mg tab ORAL SCH ×2 (08:42→21:04)
[2019-09-26] MEDS: celeBREX 200mg Cap **SURGERY PATIENTS ONLY ORAL SCH (08:42)
[2019-09-26 12:00] VITALS: BP 165/77
--- NOTE | 2019-09-26 12:38 | Orthopedic Progress Note ---
Orthopedic - Progress Note Subjective Additional Comments sx Friday. labs ordered for today and yesterday- not done. need to follow H&H Objective Last 24 Hour Vital Signs Date Time Temp Pulse Resp B/P (MAP) Pulse Ox O2 Delivery O2 Flow Rate FiO2 09/26/19 12:00 98.7 88 20 165/77 (106) 99 09/26/19 12:00 2.0 09/26/19 09:00 Nasal Cannula 2.0 09/26/19 08:00 98.6 90 21 168/82 (110) 95 09/26/19 08:00 2.0 09/26/19 07:45 89 09/26/19 07:20 85 20 97 Nasal Cannula 2.0 28 09/26/19 07:20 97 Nasal Cannula 2.0 28 09/26/19 04:00 2.0 09/26/19 04:00 97 09/26/19 04:00 98.6 93 23 150/69 (96) 96 09/26/19 00:00 2.0 09/26/19 00:00 89 09/26/19 00:00 97.8 92 23 149/80 (103) 95 09/25/19 21:00 Nasal Cannula 2.0 09/25/19 20:00 94 09/25/19 20:00 97.7 97 22 155/84 (107) 95 09/25/19 20:00 2.0 09/25/19 19:59 96 Nasal Cannula 2.0 28 09/25/19 19:59 95 20 96 Nasal Cannula 2.0 28 09/25/19 16:00 2.0 09/25/19 16:00 98.5 87 20 147/79 (101) 98 09/25/19 15:25 85 09/25/19 13:58 181/74 Intake and Output 09/25/19 09/26/19 19:00 07:00 Intake Total 480 ml Balance 480 ml Intake Oral 480 ml # Voids 4 2 Wound: other - Rt UE splint and sling Additional Comments xray reviewed: fracture reduced well with hardware Assessment Post-op Diagnosis POD 2 Procedure Performed rt wrist ORIF Plan Plan: discharge to home - ok for dc per ortho. outpt follow up in 7-10 days for casst placement. , other - ordered CBC stat to follow H&H. Kat Anaya Sep 26, 2019 12:38
--- NOTE | 2019-09-26 14:00 | NUR ---
NURSE NOTES: Called lab. to f/u for CBC because it says "in process" but according to them pt. refused blood to be drawn. Told film laboratory technician. regarding another order and try to draw again. Talked to pt. regarding the blood draw again and said no to RN. Explained MD needs to f/u H/H after surgery. Family at bedside told RN that he will talk to her and convince her. Will cont. to monitor.
--- NOTE | 2019-09-26 15:42 | Pulmonology Progress Note ---
Assessment/Plan Assessment/Plan IMPRESSION: 1. Bronchial asthma, stable. 2. Status post ORIF, right wrist fracture. 3. DM. DISCUSSION: Continue current medications and care. 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 Continue oxygen and pulmonary hygiene. Lamont Enriquez M.D. Subjective Interval Events: None new Constitutional: Reports: no symptoms HEENT: Repors: no symptoms Respiratory: Reports: no symptoms Cardiovascular: Reports: no symptoms Gastrointestinal/Abdominal: Reports: no symptoms Allergies: Coded Allergies: No Known Allergies (Unverified , 06/01/19) Objective Last 24 Hour Vital Signs Date Time Temp Pulse Resp B/P (MAP) Pulse Ox O2 Delivery O2 Flow Rate FiO2 09/26/19 12:00 98.7 88 20 165/77 (106) 99 09/26/19 12:00 2.0 09/26/19 11:43 86 09/26/19 09:00 Nasal Cannula 2.0 09/26/19 08:00 98.6 90 21 168/82 (110) 95 09/26/19 08:00 2.0 09/26/19 07:45 89 09/26/19 07:20 85 20 97 Nasal Cannula 2.0 28 09/26/19 07:20 97 Nasal Cannula 2.0 28 09/26/19 04:00 2.0 09/26/19 04:00 97 09/26/19 04:00 98.6 93 23 150/69 (96) 96 09/26/19 00:00 2.0 09/26/19 00:00 89 09/26/19 00:00 97.8 92 23 149/80 (103) 95 09/25/19 21:00 Nasal Cannula 2.0 09/25/19 20:00 94 09/25/19 20:00 97.7 97 22 155/84 (107) 95 09/25/19 20:00 2.0 09/25/19 19:59 96 Nasal Cannula 2.0 28 09/25/19 19:59 95 20 96 Nasal Cannula 2.0 28 09/25/19 16:00 2.0 09/25/19 16:00 98.5 87 20 147/79 (101) 98 Intake and Output 09/25/19 09/26/19 19:00 07:00 Intake Total 480 ml Balance 480 ml Intake Oral 480 ml # Voids 4 2 General Appearance: no acute distress HEENT: normocephalic Respiratory/Chest: chest wall non-tender Cardiovascular: normal peripheral pulses Abdomen: normal bowel sounds Current Medications Medications (Trade) Dose Ordered Sig/Tyler Route PRN Reason Start Time Stop Time Status Last Admin Dose Admin Acetaminophen (Tylenol) 650 mg EVERY 6 HOURS PRN ORAL Temp > 100.5 09/24/19 13:15 10/24/19 13:14 Acetaminophen/ Hydrocodone Bitart ([place] 5/325) 1 tab Q4H PRN ORAL Mild Pain (Pain Scale 1-3) 09/24/19 13:15 10/01/19 13:14 Albuterol/ Ipratropium (Albuterol/ Ipratropium) 3 ml Q2HRT PRN HHN Bronchospasm 09/24/19 03:15 09/29/19 03:14 Aspirin (ASA) 325 mg BID ORAL 09/25/19 09:00 10/25/19 08:59 09/26/19 08:41 Celecoxib (CeleBREX) 200 mg DAILY ORAL 09/25/19 09:00 10/25/19 08:59 09/26/19 08:42 Docusate Sodium (Colace) 100 mg THREE TIMES A DAY ORAL 09/24/19 18:00 10/24/19 17:59 09/26/19 08:41 Hydralazine HCl (Apresoline) 25 mg Q6H PRN ORAL For High Blood Pressure 09/24/19 11:45 10/24/19 11:44 09/25/19 13:58 Hydromorphone HCl (Dilaudid) 0.5 mg Q4H PRN SUBQ Moderate Pain (Pain Scale 4-6) 09/24/19 13:15 10/01/19 13:14 Hydromorphone HCl (Dilaudid) 1 mg Q3H PRN SUBQ Severe Pain (Pain Scale 7-10) 09/24/19 13:15 10/01/19 13:14 Oxycodone HCl (OxyCONTIN) 10 mg EVERY 12 HOURS ORAL 09/26/19 09:00 10/01/19 20:59 09/26/19 08:42 Pantoprazole (Protonix) 40 mg EVERY 12 HOURS ORAL 09/24/19 21:00 10/24/19 20:59 09/26/19 08:41 Sodium Chloride 1,000 ml @ 80 mls/hr [id number] IV 09/24/19 03:15 10/24/19 03:14 09/25/19 21:08 Lamont Enriquez MD Sep 26, 2019 15:42
[2019-09-26 16:00] VITALS: BP 148/87
[2019-09-26 19:01] LABS: BASOPHILS % (AUTO) 1.1 % (0.0-2.0); EOSINOPHILS % (AUTO) 2.5 % (0.0-3.0); HEMOGLOBIN 11.5 G/DL (12.0-16.0); LYMPHOCYTES % (AUTO) 17.1 % (20.0-45.0); MEAN CORPUSCULAR VOLUME 84 FL (80-99); MONOCYTES % (AUTO) 5.7 % (1.0-10.0); NEUTROPHILS % (AUTO) 73.7 % (45.0-75.0); PLATELET COUNT 335 K/UL (150-450); RED BLOOD COUNT 4.39 M/UL (4.20-5.40); RED CELL DISTRIBUTION WIDTH 16.4 % (11.6-14.8); WHITE BLOOD COUNT 10.6 K/UL (4.8-10.8)
--- NOTE | 2019-09-26 19:04 | NUR ---
HAND-OFF: Report given to Jennifer GUMSAN. Pt. remain stable. Endorsed to next shift on ortho stand point pt. ok for d/c.
--- NOTE | 2019-09-26 19:30 | NUR ---
NURSE NOTES: Received report from NASEEM De La Garza. Patient is in bed, awake and responsive. Breathing regular and unlabored on 2L NC with no S/S of SOB noted at this time. Patient denies any pain or discomfort at this time. Family member remains at bed-side and will stay over night. Family member aware that patient has been cleared for D/C by ortho, but still needs cardiology and primary MD to assess patient for clearance. Family member stated "We're ready to get out of here, we thought we would go tonight." Explained to family member about clearance before D/C, verbalized understanding. Bed remains in the lowest position, breaks engaged, and call light is within reach at all times. All other needs attended to, patient remains stable, will continue to monitor.
[2019-09-26 20:00] VITALS: BP 162/90
[2019-09-26] MEDS: HydrALAZINE 25mg tab ORAL PRN (21:57)
--- NOTE | 2019-09-26 22:42 | NUR ---
NURSE NOTES: Offered assistance with changing the patient and assisting with hygiene, but per family member patient doesn't want to be touched. Family member likes to do things for the patient himself. Offered assistance again to provide hygiene care for the patient, will follow up later to see if patient is ready to be changed.
[2019-09-27] VITALS: BP 139/79
[2019-09-27 04:00] VITALS: BP 125/79
--- NOTE | 2019-09-27 04:15 | NUR ---
NURSE NOTES: Patient allowed the RN and the nursing attendant to change her gown and clean her up a bit. Patient comfortably resting in bed, will continue to monitor.
--- NOTE | 2019-09-27 07:30 | NUR ---
HAND-OFF: Report given to NASEEM Stoddard. Plan of care endorsed.
--- NOTE | 2019-09-27 07:47 | NUR ---
NURSE NOTES: pt awake alert, no distress. no sob. no c/o pain. call light within reach. bed in lowest position, locked.
[2019-09-27 08:00] VITALS: BP 165/79
[2019-09-27] MEDS: celeBREX 200mg Cap **SURGERY PATIENTS ONLY ORAL SCH (08:33)
[2019-09-27] MEDS: oxyCONTIN 10mg tab ORAL SCH (08:34)
[2019-09-27] MEDS: Docusate 100mg cap ORAL SCH (08:34)
--- NOTE | 2019-09-27 08:39 | Hematology/Onc Progress Note ---
Assessment/Plan Assessment/Plan Assesment and Recs: # Anemia of chronic disease --> eval prn basis --> hgb 11 --> stable for dc # Right wrist fracture that requires surgery with ortho --> s/p splint placement and ORIF surgery --> asthma control --> cardiac cleared # COPD exacerbation history --> as per Dr. Enriquez # Electrolyte abnormality --> per Dr. Salas # Asthma --> breathing rx and steriods as per Dr. Horace Russell --> requires better control pror to surgery # Hypertension --> dw Cards # Morbid obesity --> recommend weight loss # Hyperglycemia , likely secondary to steroid --> if worse endo Appreciate party plan sales consultant care and dw rn Subjective Constitutional: Denies: no symptoms, chills, fever, malaise, weakness, other HEENT: Denies: no symptoms, eye pain, blurred vision, tearing, double vision, ear pain, ear discharge, nose pain, nose congestion, throat pain, throat swelling, mouth pain, mouth swelling, other Cardiovascular: Denies: no symptoms, chest pain, edema, irregular heart rate, lightheadedness, palpitations, syncope, other Respiratory: Denies: no symptoms, cough, shortness of breath, SOB with excertion, SOB at rest, sputum, wheezing, other Genitourinary: Denies: no symptoms, burning, discharge, frequency, flank pain, hematuria, incontinence, pain, urgency, other Neurologic/Psychiatric: Denies: no symptoms, anxiety, depressed, emotional problems, headache, numbness, paresthesia, pre-existing deficit, seizure, tingling, tremors, weakness, other Endocrine: Denies: no symptoms, excessive sweating, flushing, intolerance to cold, intolerance to heat, increased hunger, increased thirst, increased urine, unexplained weight gain, unexplained weight loss, other Hematologic/Lymphatic: Denies: no symptoms, anemia, easy bleeding, easy bruising, adenopathy, other Allergies: Coded Allergies: No Known Allergies (Unverified , 06/01/19) Subjective 09/26: no bleeding or chills, breathing treatments prn, hgb lower, fatigued 09/27: cleared by ortho, labs noted, no bleeding Objective Objective Current Medications Medications (Trade) Dose Ordered Sig/Tyler Route PRN Reason Start Time Stop Time Status Last Admin Dose Admin Acetaminophen (Tylenol) 650 mg EVERY 6 HOURS PRN ORAL Temp > 100.5 09/24/19 13:15 10/24/19 13:14 Acetaminophen/ Hydrocodone Bitart ([place] 5/325) 1 tab Q4H PRN ORAL Mild Pain (Pain Scale 1-3) 09/24/19 13:15 10/01/19 13:14 Albuterol/ Ipratropium (Albuterol/ Ipratropium) 3 ml Q2HRT PRN HHN Bronchospasm 09/24/19 03:15 09/29/19 03:14 09/26/19 21:24 Aspirin (ASA) 325 mg BID ORAL 09/25/19 09:00 10/25/19 08:59 09/27/19 08:32 Celecoxib (CeleBREX) 200 mg DAILY ORAL 09/25/19 09:00 10/25/19 08:59 09/27/19 08:33 Docusate Sodium (Colace) 100 mg THREE TIMES A DAY ORAL 09/24/19 18:00 10/24/19 17:59 09/27/19 08:34 Hydralazine HCl (Apresoline) 25 mg Q6H PRN ORAL For High Blood Pressure 09/24/19 11:45 10/24/19 11:44 09/26/19 21:57 Hydromorphone HCl (Dilaudid) 0.5 mg Q4H PRN SUBQ Moderate Pain (Pain Scale 4-6) 09/24/19 13:15 10/01/19 13:14 Hydromorphone HCl (Dilaudid) 1 mg Q3H PRN SUBQ Severe Pain (Pain Scale 7-10) 09/24/19 13:15 10/01/19 13:14 Oxycodone HCl (OxyCONTIN) 10 mg EVERY 12 HOURS ORAL 09/26/19 09:00 10/01/19 20:59 09/27/19 08:34 Pantoprazole (Protonix) 40 mg EVERY 12 HOURS ORAL 09/24/19 21:00 10/24/19 20:59 09/27/19 08:33 Sodium Chloride 1,000 ml @ 80 mls/hr [id number] IV 09/24/19 03:15 10/24/19 03:14 09/26/19 21:11 Last 24 Hour Vital Signs Date Time Temp Pulse Resp B/P (MAP) Pulse Ox O2 Delivery O2 Flow Rate FiO2 09/27/19 08:00 98.8 92 20 165/79 (107) 99 09/27/19 07:41 Nasal Cannula 2.0 09/27/19 04:00 97 09/27/19 04:00 98.8 92 20 125/79 (94) 99 09/27/19 04:00 2.0 09/27/19 00:00 97 09/27/19 00:00 98.9 93 20 139/79 (99) 95 09/27/19 00:00 2.0 09/26/19 21:57 162/90 09/26/19 21:34 99 20 99 Nasal Cannula 2.0 28 09/26/19 21:24 99 20 96 Nasal Cannula 2.0 28 09/26/19 21:00 Nasal Cannula 2.0 09/26/19 20:00 2.0 09/26/19 20:00 97 09/26/19 20:00 98.8 98 20 162/90 (114) 100 09/26/19 19:40 97 Nasal Cannula 2.0 28 09/26/19 19:40 99 20 97 Nasal Cannula 2.0 28 09/26/19 16:00 2.0 09/26/19 16:00 98.1 100 18 148/87 (107) 98 09/26/19 15:12 105 09/26/19 12:00 98.7 88 20 165/77 (106) 99 09/26/19 12:00 2.0 09/26/19 11:43 86 09/26/19 09:00 Nasal Cannula 2.0 09/26/19 08:00 98.6 90 21 168/82 (110) 95 09/26/19 08:00 2.0 09/26/19 07:45 89 09/26/19 07:20 85 20 97 Nasal Cannula 2.0 28 09/26/19 07:20 97 Nasal Cannula 2.0 28 09/26/19 04:00 2.0 09/26/19 04:00 97 09/26/19 04:00 98.6 93 23 150/69 (96) 96 09/26/19 00:00 2.0 09/26/19 00:00 89 09/26/19 00:00 97.8 92 23 149/80 (103) 95 09/25/19 21:00 Nasal Cannula 2.0 09/25/19 20:00 94 09/25/19 20:00 97.7 97 22 155/84 (107) 95 09/25/19 20:00 2.0 09/25/19 19:59 96 Nasal Cannula 2.0 28 09/25/19 19:59 95 20 96 Nasal Cannula 2.0 28 09/25/19 16:00 2.0 09/25/19 16:00 98.5 87 20 147/79 (101) 98 09/25/19 15:25 85 09/25/19 13:58 181/74 09/25/19 12:00 98.9 73 19 181/74 (109) 97 09/25/19 12:00 2.0 09/25/19 11:30 93 09/25/19 09:29 76 24 97 09/25/19 08:46 Nasal Cannula 2.0 Intake and Output 09/26/19 09/27/19 19:00 07:00 Intake Total 1270 ml 160 ml Balance 1270 ml 160 ml Intake Oral 550 ml 160 ml IV Total 720 ml # Voids 3 2 # Bowel Movements 2 Labs Test 09/24/19 10:10 09/26/19 18:30 White Blood Count 8.6 K/UL (4.8-10.8) 10.6 K/UL (4.8-10.8) Red Blood Count 4.43 M/UL (4.20-5.40) 4.39 M/UL (4.20-5.40) Hemoglobin 11.8 G/DL (12.0-16.0) 11.5 G/DL (12.0-16.0) Hematocrit 37.0 % (37.0-47.0) 37.0 % (37.0-47.0) Mean Corpuscular Volume 84 FL (80-99) 84 FL (80-99) Mean Corpuscular Hemoglobin 26.6 PG (27.0-31.0) 26.1 PG (27.0-31.0) Mean Corpuscular Hemoglobin Concent 31.8 G/DL (32.0-36.0) 31.0 G/DL (32.0-36.0) Red Cell Distribution Width 14.4 % (11.6-14.8) 16.4 % (11.6-14.8) Platelet Count 255 K/UL (150-450) 335 K/UL (150-450) Mean Platelet Volume 5.1 FL (6.5-10.1) 6.0 FL (6.5-10.1) Neutrophils (%) (Auto) % (45.0-75.0) 73.7 % (45.0-75.0) Lymphocytes (%) (Auto) % (20.0-45.0) 17.1 % (20.0-45.0) Monocytes (%) (Auto) % (1.0-10.0) 5.7 % (1.0-10.0) Eosinophils (%) (Auto) % (0.0-3.0) 2.5 % (0.0-3.0) Basophils (%) (Auto) % (0.0-2.0) 1.1 % (0.0-2.0) Differential Total Cells Counted 100 Neutrophils % (Manual) 69 % (45-75) Lymphocytes % (Manual) 24 % (20-45) Monocytes % (Manual) 6 % (1-10) Eosinophils % (Manual) 1 % (0-3) Basophils % (Manual) 0 % (0-2) Band Neutrophils 0 % (0-8) Platelet Estimate Adequate Platelet Morphology Normal Hypochromasia 1+ Anisocytosis 1+ Sodium Level 146 MMOL/L (136-145) Potassium Level 4.0 MMOL/L (3.5-5.1) Chloride Level 111 MMOL/L (98-107) Carbon Dioxide Level 23 MMOL/L (21-32) Anion Gap 12 mmol/L (5-15) Blood Urea Nitrogen 18 mg/dL (7-18) Creatinine 0.9 MG/DL (0.55-1.30) Estimat Glomerular Filtration Rate > 60 mL/min (>60) Glucose Level 101 MG/DL (74-106) Calcium Level 8.5 MG/DL (8.5-10.1) Height (Feet): 5 Height (Inches): 3.00 Weight (Pounds): 264 Objective Physical Exam: Vitals: reviewed General: NAD HEENT: nc, at Neck: supple Chest: clear breath sounds bilaterally Cardiovascular: RRR, no s3, s4 Abdomen: soft, nontender, nd Extremities: no cce, normal range of motion ++ ecchymoses right wrist s/p splint Neuro: alert and oriented Chase Strickland MD Sep 27, 2019 08:39
--- NOTE | 2019-09-27 10:29 | NUR ---
*-* DISCHARGE PLANNING *-* PATIENT HAS BEEN REFERRED TO: MARISSA ARRIOLA P: [phone] F: [phone] EMAIL: [email or web address]
--- NOTE | 2019-09-27 10:55 | NUR ---
NURSE NOTES: pt 95-99% on ra. pt refuses to go to snf multiple times risks and benefits informed to pt and at bedside. rn left message to the [facility] which provides staff to assist pt w picking up meds and accompanying pt to medical appts. left msg to [employer] Lucien [phone]. pt and aware that rn left voicemail. all belongings w the pt. pt/ refused to sign any form. Dr Gama aware of above. Addendum: 09/27/19 at 1129 by TREY JEFF RN RECOMMENDED TO PT RE FOLLOW UP W PRIMARY (PER HOME HEALTH CAREGIVER, SHE HAS APPT ON OCTOBER 04.
--- NOTE | 2019-09-27 22:36 | Cardiology Progress Note ---
Assessment/Plan Assessment/Plan 1. Shortness of breath, likely due to acute exacerbation of asthma, 2D echocardiography with normal LV systolic function with LVEF of 55%. 2. Right distal radius fracture, s/p right wrist ORF, POD #3 with no perioperative cardiac events. Time of note does not reflect the patient's encounter. Subjective Subjective Sinus rhythm at rate of 92. s/p right wrist ORIF, POD #3 Objective Last 24 Hour Vital Signs Date Time Temp Pulse Resp B/P (MAP) Pulse Ox O2 Delivery O2 Flow Rate FiO2 09/27/19 09:04 98.8 09/27/19 08:00 98.8 92 20 165/79 (107) 99 09/27/19 07:50 91 09/27/19 07:41 Nasal Cannula 2.0 09/27/19 04:00 97 09/27/19 04:00 98.8 92 20 125/79 (94) 99 09/27/19 04:00 2.0 09/27/19 00:00 97 09/27/19 00:00 98.9 93 20 139/79 (99) 95 09/27/19 00:00 2.0 Intake and Output 09/26/19 09/27/19 19:00 07:00 Intake Total 1270 ml 160 ml Balance 1270 ml 160 ml Intake Oral 550 ml 160 ml IV Total 720 ml # Voids 3 2 # Bowel Movements 2 2D Echo: LVEF 55%, Grade I LVDD, Mild LVH, RVSP 25 mmHg Objective HEENT: Atraumatic and normocephalic. Anicteric. Pupils are equal, round, and reactive to light and accommodation. Extraocular muscles intact. NECK: JVP less than 5 centimeter. No carotid bruit. Carotid upstrokes 2+ bilaterally. CVS: Normal S1 and S2. Regular rate and rhythm. No murmurs, gallops, or rubs. PMI is at fourth space in midclavicular line. LUNGS: Clear to auscultation bilaterally. ABDOMEN: Soft, nontender, and nondistended. No hepatosplenomegaly. Positive bowel sounds. EXTREMITIES: No evidence of edema, clubbing, or cyanosis. Leo Cornelius MD Sep 27, 2019 22:36
--- NOTE | 2019-09-28 10:01 | Discharge Summary ---
Discharge Summary Discharge Summary _ DATE OF ADMISSION: 09/23/2019 DATE OF DISCHARGE: 09/27/2019 Patient left AGAINST MEDICAL ADVICE REASON FOR ADMISSION: 69 years old female with past medical history of COPD/asthma, presented after mechanical fall at home and pain in the right hand and forearm. Laboratory work-up revealed no leukocytosis,stable hemoglobin and hematocrit. Stable electrolytes and renal parameters. Troponin negative. pro BNP 251. Chest x-ray revealed borderline cardiomegaly with mild interstitial congestion. Possible small right pleural effusion. X-ray of the right hand revealed was positive for distal radial fracture. X-ray of the right forearm revealed distal radial fracture as well. In emergency department well-padded splint was placed to right upper extremity. Patient received analgesic. Orthopedic surgeon consulted . Clinical exam revealed mild wheezing . Patient received single dose of oral prednisone and bronchodilator treatment and subsequently admitted for further management. CONSULTANTS: insurance salesperson Dr. Cornelius pulmonary Dr[facility]: Patient admitted to telemetry floor. Patient was seen by orthopedic surgeon. Per orthopedic surgery surgeon patient had right wrist comminuted distal radius fracture. Echocardiogram demonstrated preserved ejection fraction 55 to 60% with no evidence of wall motion abnormality. No evidence of pericardial effusion. Mild left ventricular hypertrophy. Right ventricular systolic pressure 25. Per cardiology,echocardiogram was stable. Patient had no active cardiac issues. No further cardiac work-up was required. Patient subsequently undergone right wrist open reduction internal fixation of right distal radius fracture on 09/24. Pain management was addressed. Bowel regimen instituted Supportive care provided. GI prophylaxis provided. Patient was working with physical therapist. Supplemental oxygen provided and titrated to keep pulse oximetry above 92%. Pulmonary toilet provided as needed. Blood sugar was closely monitored remained stable. Diabetic diet provided. Patient declined to go to care home facility. The risks and consequences of signing AGAINST MEDICAL ADVICE were discussed with patient in detail. Patient verbalized understanding. Patient declined to sign any form and left accompanied by her . FINAL DIAGNOSES: Right distal radius fracture with comminution with displacement Status post open reduction internal fixation right wrist fracture Bronchial asthma Hypertension Morbid obesity Diabetes mellitus I have been assigned to dictate discharge summary for this account. I was not involved in the patient's management. Chula Love NP Sep 28, 2019 10:01
[2019-09-28] MEDS ORDERED: IBUPROFEN600 MG ORAL (18:15)
[2019-09-28] MEDS ORDERED: MEDROL DOSEPAK4 MG ORAL (18:15)
[2019-09-28] MEDS ORDERED: OXYCODONE HCL5 M2 ORAL (18:15)
[2019-09-28] MEDS ORDERED: ALBUTEROL SULF8.5 GM INH (18:15)
--- NOTE | 2019-10-26 11:04 | Diagnostic Imaging Report ---
INDICATION: Pain, intraoperative TECHNIQUE: Intraoperative imaging Fluoroscopy time: 14.2 seconds Total dose: 0.76712 mGym2 Total number of images: 4 COMPARISON: 09/23/2019 FINDINGS: Intraoperative images document surgical repair of previously demonstrated distal radial fracture with plate and screws IMPRESSION: Intraoperative imaging, as described
== END 2019-09-27 10:57 | disposition left against medical advice (07) | DRG 315 ==
LOC: EMR 11:40 → 2E 12:07 → EDBEDREQ 22:21
PROC: 0PSH04Z Reposition Right Radius with Internal Fixation Device, Open Approach (ICD-10-PCS; principal; 2019-09-24 13:00)
DX: S52.501A Unspecified fracture of the lower end of right radius, initial encounter for closed fracture (principal); J45.901 Unspecified asthma with (acute) exacerbation; W19.XXXA Unspecified fall, initial encounter; E66.01 Morbid (severe) obesity due to excess calories; E11.65 Type 2 diabetes mellitus with hyperglycemia; T38.0X5A Adverse effect of glucocorticoids and synthetic analogues, initial encounter; D63.8 Anemia in other chronic diseases classified elsewhere
CPT/HCPCS: 36415; 71045; 76000; 80048; 80053; 83880; 84484; 85007; 85025; 93005; 93306; 94003; 94150; 94640; 94664; 99285; J2180; J2250; J2405; J7030; J7620

== ENCOUNTER 2019-09-28 16:29 | Emergency (ER) | payer MEDICARE, MEDICAID ==
[~2019-09-28] VITALS: Ht 157.5 cm; Wt 127.0 kg
[~2019-09-28 16:29] MED LIST changes: +VENTOLIN HFA18 GM INH
[2019-09-28] MEDS ORDERED: Albuterol/Ipratropium 3ml neb HHN ONE (17:15)
--- NOTE | 2019-09-28 18:09 | Emergency Room Report ---
History of Present Illness General Chief Complaint: Upper Extremity Injury Source: Patient Present Illness HPI 69-year-old female presents to the emergency department complaining of having a loose fitting right forearm splint in addition to "something rubbing "on her inner arm. Patient status post ORIF to the right forearm on the due to distal radial fracture. Patient ended up leaving AMA and left without any medications or discharge instructions. Patient reports she has not followed up with an behavior specialist yet. 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 She denies pain. She denies additional trauma or fall. She denies fevers, chills, paresthesias or skin color changes. Pt. with hx of significant COPD which is poorly controlled. She states she has not followed up with her PCP since recent hospital visit. Allergies: Coded Allergies: No Known Allergies (Unverified , 06/01/19) Patient History Past Medical History: see triage record, COPD Past Surgical History: none Pertinent Family History: none Last Menstrual Period: na Reviewed Nursing Documentation: PMH: Agreed; PSxH: Agreed Nursing Documentation-PMH Past Medical History: No History, Except For Hx Cardiac Problems: No Hx Hypertension: Yes Hx Asthma: Yes Hx COPD: Yes Hx Cancer: No Hx Gastrointestinal Problems: No Hx Neurological Problems: No Review of Systems All Other Systems: negative except mentioned in HPI Physical Exam Vital Signs Date Time Temp Pulse Resp B/P (MAP) Pulse Ox O2 Delivery O2 Flow Rate FiO2 09/28/19 16:49 97.9 106 20 191/88 (122) 96 Room Air Sp02 EP Interpretation: reviewed, normal General Appearance: no apparent distress, alert, GCS 15, non-toxic, obese Head: normocephalic, atraumatic Eyes: bilateral eye normal inspection, bilateral eye PERRL ENT: hearing grossly normal, normal voice Neck: full range of motion Respiratory: chest non-tender, speaking full sentences, wheezing - expiratory Cardiovascular #1: regular rate, rhythm, no edema, normal capillary refill Cardiovascular #2: 2+ radial (R) Musculoskeletal: back normal, normal range of motion, gait/station normal, other - pt with loose sugar tong splint of the right forearm. there is an exposed area which is rubbing on the pt. inner arm. pt. NVI. swelling noted of the right hand/forearm. Neurologic: alert, motor strength/tone normal, oriented x3, sensory intact, responsive, speech normal, grossly normal, no focal defects Psychiatric: judgement/insight normal Skin: normal color, other - Mild dermatitis of the medial aspect of the right arm due to contact with splint material. erythema and superficial sensitivity to touch to a small localized area. Medical Decision Making PA Attestation Dr. Walker is my supervising Physician whom patient management has been discussed with. Diagnostic Impression: Primary Impression: Problem with immobilizing cast Additional Impression: COPD, frequent exacerbations ER Course 69-year-old female presents to the emergency department complaining of having a loose fitting right forearm splint in addition to "something rubbing "on her inner arm. Patient status post ORIF to the right forearm on the due to distal radial fracture. Patient ended up leaving AMA and left without any medications or discharge instructions. Patient reports she has not followed up with an behavior specialist yet. 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 She denies pain. She denies additional trauma or fall. She denies fevers, chills, paresthesias or skin color changes. Pt. with hx of significant COPD which is poorly controlled. She states she has not followed up with her PCP since recent hospital visit. Ddx considered but are not limited to Fracture, dislocation, contusion, Sprain/ Strain/Spasm, compartment Syndrome, PNA, COPD/ Asthma exacerbation just to name a few. Vital signs: pt. mildly tachycardic at 106, otherwise remaining VS are WNL, pt. is afebrile, O2% Saturation is 96% H&PE are most consistent with s/p ORIF right forearm with a poorly fitting sugar tong splint. COPD exacerbation persists. with audible wheezes. -Mild dermatitis of the medial aspect of the right arm due to contact with splint material. ORDERS: - None required at this time. ED INTERVENTIONS: - Albuterol HHN. -Right forearm volar splint applied by industrial tech instructor. Pt. remains neurovascularly intact. -- right arm Sling reapplied by industrial tech instructor. Pt. remains neurovascularly intact. I discussed with this patient that it is imperative that she contact her orthopedist surgeon and coordinate proper follow-up as she is right-hand dominant. Also discussed with patient that she needs to follow-up with her primary care provider for pulmonology referral since she continues to have symptoms of wheezing despite being on several medications for her COPD at home. This patient is given strict ED return precautions. DISCHARGE: At this time pt. is stable for d/c to home. Will provide printed patient care instructions, and any necessary prescriptions. Care plan and follow up instructions have been discussed with the patient prior to discharge. Last Vital Signs Date Time Temp Pulse Resp B/P (MAP) Pulse Ox O2 Delivery O2 Flow Rate FiO2 09/28/19 16:49 97.9 106 20 191/88 (122) 96 Room Air Status: improved - improved comfort of right arm Disposition: HOME, SELF-CARE Condition: Stable Scripts Ibuprofen* (MOTRIN*) 600 Mg Tablet 600 MG ORAL THREE TIMES A DAY, #30 TAB 0 Refills Prov: Aminata Daniel 09/28/19 Albuterol Sulfate* (ALBUTEROL SULFATE MDI*) 8.5 Gm Hfa.aer.ad 2 PUFF INH Q3H, #1 INH 0 Refills Prov: Aminata Daniel 09/28/19 Methylprednisolone (Methylprednisolone*) 4MG Dspk 4 MG ORAL DIRECTED for 6 Days, #21 EA 0 Refills Day 1: Two tablets before breakfast, one after lunch, one after dinner, and two at bedtime. If started late in the day, take all six tablets at once or divide into two or three doses, unless otherwise directed by prescriber. Day 2: One tablet before breakfast, one after lunch, one after dinner, and two at bedtime Day 3: One tablet before breakfast, one after lunch, one after dinner, and one at bedtime Day 4: One tablet before breakfast, one after lunch, and one at bedtime Day 5: One tablet before breakfast and one at bedtime Day 6: One tablet before breakfast Prov: Aminata Daniel 09/28/19 Oxycodone Hcl* (OXYCODONE HCL*) 5 Mg Capsule 5 MG ORAL Q6H PRN for For Pain, #12 CAP 0 Refills Prov: Aminata Daniel 09/28/19 Referrals: SAADIA MCKEON Roman L. [facility] Patient Instructions: Chronic Obstructive Pulmonary Disease Exacerbation, Radial Fracture Additional Instructions: Take medications as directed. Follow up with an TEXTILE COLORIST FORMULATOR within 3 days, even if your symptoms have resolved. CONTACT INFO: For the orthopedic surgeon who performed your surgery, and the primary internal physician who was overseeing you have been provided either below or on the next page. - Follow up with DISTRICT SALES REPRESENTATIVE for uncontrolled COPD. Return sooner to ED if new symptoms occur, or current symptoms become worse. Do not drink alcohol, drive, or operate heavy machinery while taking Leblanc as this may cause drowsiness. - Please note that this Emergency Department Report was dictated using [employer]enior marketing coordinator technology software, occasionally this can lead to erroneous entry secondary to interpretation by the dictation equipment. Aminata Daniel Sep 28, 2019 18:09
[2019-09-28 18:13] VITALS: BP 180/85
[2019-09-28] MEDS ORDERED: ALBUTEROL SULF8.5 GM INH (18:15)
[2019-09-28] MEDS ORDERED: OXYCODONE HCL5 M2 ORAL (18:15)
[2019-09-28] MEDS ORDERED: IBUPROFEN600 MG ORAL (18:15)
[2019-09-28] MEDS ORDERED: MEDROL DOSEPAK4 MG ORAL (18:15)
--- NOTE | 2019-09-28 18:15 | NUR ---
ED Nurse Note:pt. had new splint placed on right arm per ER PA order, also received breathing treatment
[2019-09-28 18:30] VITALS: BP 180/85
--- NOTE | 2019-09-28 18:30 | NUR ---
ER DISCHARGE NOTE: Patient is cleared to be discharged per ERMD, pt is aox4, on room air, with stable vital signs. pt was given dc and prescription instructions, pt was able to verbalize understanding,pt left ER via wheelchair with family member pt took all belongings.
== END 2019-09-28 18:30 | disposition home or self-care (01) ==
LOC: EMR 16:55
DX: Z46.89 Encounter for fitting and adjustment of other specified devices (principal); S52.501D Unspecified fracture of the lower end of right radius, subsequent encounter for closed fracture with routine healing; J44.1 Chronic obstructive pulmonary disease with (acute) exacerbation; I10 Essential (primary) hypertension; J45.909 Unspecified asthma, uncomplicated; X58.XXXD Exposure to other specified factors, subsequent encounter
CPT/HCPCS: 29125; 99284; J7620

== ENCOUNTER 2019-10-08 01:51 | Emergency (ER) | payer MEDICARE, MEDICAID ==
[~2019-10-08] VITALS: Ht 154.9 cm; Wt 104.3 kg
[~2019-10-08 01:51] MED LIST changes: +ALBUTEROL SULF8.5 GM INH; +IBUPROFEN600 MG ORAL; +MEDROL DOSEPAK4 MG ORAL; +OXYCODONE HCL5 M2 ORAL
[2019-10-08 02:11] VITALS: BP 97/70
--- NOTE | 2019-10-08 02:11 | NUR ---
ED Nurse Note: Patient walked in to ED from home c/o abdominal pain x2 hrs ago. Denies nausea, vomiting and diarrhea. Pt also reports right arm pain due S/P fracture sx last 09/2019, noted with swollen hand. 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 Afebrile. Not in any distress. Daughter at bedside.
--- NOTE | 2019-10-08 02:20 | NUR ---
ED Nurse Note: RN attempted to start an IV line, pt refused.
--- NOTE | 2019-10-08 02:25 | NUR ---
ED Nurse Note: Pt refused IV line insertion and blood draw. Explained risk and benefits, verbally understood. ERMD notified.
--- NOTE | 2019-10-08 02:28 | Emergency Room Report ---
History of Present Illness General Chief Complaint: Abdominal Pain Source: Patient, Family Member, Medical Record Present Illness HPI This is a 69-year-old female with history of hypertension. She also has previous and appendectomy. She had a recent wrist surgery. She presents with chief complaint of abdominal pain. Onset tonight. Pain is around umbilical area. Pain is 9 out of 10. No nausea no vomiting. No diarrhea. Pain is sharp in nature. No radiation. She also complaining of her right hand being swollen from her splint. Denies any new trauma. Worse with movement. Allergies: Coded Allergies: No Known Allergies (Unverified , 06/01/19) Patient History Past Medical History: see triage record, old chart reviewed, HTN, COPD Past Surgical History: appy, , other Pertinent Family History: none Social History: Denies: smoking Now: No Immunizations: other Reviewed Nursing Documentation: PMH: Agreed; PSxH: Agreed Nursing Documentation-PMH Hx Cardiac Problems: No Hx Hypertension: Yes Hx Asthma: Yes Hx COPD: Yes Hx Cancer: No Hx Gastrointestinal Problems: No Hx Neurological Problems: No Review of Systems Eye: Denies: eye pain, blurred vision ENT: Denies: ear pain, nose congestion, throat swelling Respiratory: Denies: cough, shortness of breath Cardiovascular: Denies: chest pain, palpitations Gastrointestinal: Reports: abdominal pain; Denies: diarrhea, nausea, vomiting Musculoskeletal: Denies: back pain, joint pain Skin: Denies: rash Neurological: Denies: headache, numbness Endocrine: Denies: increased thirst, increased urine Hematologic/Lymphatic: Denies: easy bruising All Other Systems: negative except mentioned in HPI Physical Exam Vital Signs Date Time Temp Pulse Resp B/P (MAP) Pulse Ox O2 Delivery O2 Flow Rate FiO2 10/08/19 02:00 98.2 72 20 97/70 (79) 99 Room Air Vitals unremarkable Sp02 EP Interpretation: reviewed, normal General Appearance: well appearing, no apparent distress, alert, obese Head: normocephalic, atraumatic Eyes: bilateral eye PERRL, bilateral eye EOMI ENT: hearing grossly normal, normal pharynx Neck: full range of motion, supple, no meningismus Respiratory: chest non-tender, lungs clear, normal breath sounds Cardiovascular #1: regular rate, rhythm, no murmur Gastrointestinal: normal bowel sounds, no mass, no organomegaly, no bruit, non- distended, tenderness - Tender umbilical hernia mostly in the right side. Musculoskeletal: back normal, normal range of motion, gait/station normal, other - Right wrist: She has a volar splint on. Hands show 3+ pitting edema. Her splint was on too tight with a Diego wrap. Pulse normal. Surgical wound looks clean. Psychiatric: mood/affect normal Medical Decision Making Diagnostic Impression: Primary Impression: Umbilical hernia Qualified Codes: K42.9 - Umbilical hernia without obstruction or gangrene Additional Impression: Post-op pain ER Course Patient presents with 2 issues. The first 1 is her right wrist pain status post surgery. She has swelling to her hand. This was because she is having it dangling down in the Diego wrap was too tight. I removed that and redo her splint. There is no evidence of any infection. X-ray looks fine. No obstruction. Second complaint is abdominal pain. This is probably secondary to her incarcerated hernia. It was reducible. There was a pretty large defect just to the right side of umbilicus. She was a very hard stick and after several attempts, she refused any more blood work done. I did a CT scan instead. CT scans unremarkable. No evidence of any obstruction. She felt better now after a pain shot. She is drinking fluids without any problem. Will discharge home. Other X-Ray Diagnostic Results Other X-Ray Diagnostic Results : X-Ray ordered: Right wrist x-rays # of Views/Limited Vs Complete: 3 View Indication: Pain EP Interpretation: Yes Interpretation: no dislocation, no soft tissue swelling, other - Good alignment status post surgery Impression: Other - status post distal radius surgery Electronically Signed by: Joshua Hermosillo MD CT/MRI/US Diagnostic Results CT/MRI/US Diagnostic Results : Imaging Test Ordered: CT abdomen pelvis Impression Read by radiologist. No obstruction. Last Vital Signs Date Time Temp Pulse Resp B/P (MAP) Pulse Ox O2 Delivery O2 Flow Rate FiO2 10/08/19 02:00 98.2 72 20 97/70 (79) 99 Room Air Status: improved Disposition: HOME, SELF-CARE Condition: Stable Scripts Hydrocodone Bit/Acetaminophen 5-325* (NORCO 5-325*) 1 Each Tablet 1 TAB ORAL Q6H PRN for For Pain, #20 TAB 0 Refills Prov: Joshua Hermosillo MD 10/08/19 Referrals: NON PHYSICIAN (PCP) Additional Instructions: Follow-up with your orthopedic doctor for reevaluation. Elevate arm. Follow- up with your doctor in 7 days. You will need referral to see a surgeon regarding your hernia. Return if worse. Joshua Hermosillo MD Oct 08, 2019 02:28
[2019-10-08] MEDS ORDERED: Morphine Sulfate 4mg/ml Inj (IV USE ONLY) IVP ONE (02:30)
--- NOTE | 2019-10-08 02:30 | NUR ---
ED Nurse Note: IV meds not given. Pt doesnt have an IV line. ERMD notified.
--- NOTE | 2019-10-08 02:46 | NUR ---
ED Nurse Note: Xray done at bedside.
--- NOTE | 2019-10-08 02:51 | NUR ---
ED Nurse Note: Pt was taken for CT via crissy, accompanied by a tech.
--- NOTE | 2019-10-08 03:11 | NUR ---
ED Nurse Note: Pt came back from CT, not in any distress.
[2019-10-08] MEDS ORDERED: HYDROcodone/Acetamin 5/325 tab ORAL ONE (03:15)
--- NOTE | 2019-10-08 03:16 | NUR ---
ED Nurse Note: Paton 5/325mg wa snot given, ERMD cancelled the order. Medication was returned in the pyxis.
[2019-10-08] MEDS ORDERED: HYDROmorphone 1mg/ml Carpuject IM ONE (03:30)
[2019-10-08 03:33] LABS: APPEARANCE,URINE CLEAR; BILIRUBIN, URINE NEGATIVE (NEGATIVE); COLOR,URINE PALE YELLOW; GLUCOSE, URINE (UA) NEGATIVE (NEGATIVE); KETONES,URINE NEGATIVE (NEGATIVE); LEUKOCYTE ESTERASE ,URINE NEGATIVE (NEGATIVE); NITRITE,URINE NEGATIVE (NEGATIVE); PH,URINE 5 (4.5-8.0); PROTEIN,URINE NEGATIVE (NEGATIVE); UROBILINOGEN,URINE NORMAL MG/DL (0.0-1.0)
--- NOTE | 2019-10-08 03:44 | Diagnostic Imaging Report ---
CT ABDOMEN: Motion degraded study. Negative for parenchymal lung consolidation or pneumothorax. Indeterminate left adrenal nodule. No acute findings involving the unenhanced solid abdominal organs. The visualized portions of the lower GI tract demonstrate no obstruction or pneumatosis. The pelvis was not imaged in this patient. No loculated fluid collections in the abdomen.
[2019-10-08] MEDS ORDERED: NORCO 5-325 TA1 EACH ORAL (04:31)
[2019-10-08 04:39] VITALS: BP 122/73
--- NOTE | 2019-10-08 04:39 | NUR ---
ED Nurse Note: Pt cleared by ERMD for discharge. DC instructions/prescription was given and explained to pt and daughter verbalized understanding of teachings. All medical deviecs such as ID band removed. Pt is AAO x4, ambulatory and left with all personal belongings. Accompanied by her daughter.
--- NOTE | 2019-10-08 10:20 | Diagnostic Imaging Report ---
Clinical Indication:Right wrist Technique: 3 views of the right wrist Comparison: 09/24/2019 Findings: Again noted are a plate and screws reducing a distal radial fracture. This appears well aligned. The hardware appears intact, although the most distal lateral screw does appear to be extraosseous. Impression: Postoperative changes, as described. No definite acute abnormality
--- NOTE | 2019-10-08 16:30 | Diagnostic Imaging Report ---
Clinical Indication: Reason For Exam: PAIN Technique: No oral contrast utilized, per emergency room physician request no IV contrast. Spiral acquisitions obtained through the abdomen. The pelvis was not included due to patient body habitus. Multiplanar reconstructions were generated. Total dose length product 883 mGycm. CTDIvol(s) 18 mGy. Dose reduction achieved using automated exposure control Comparison: none Findings: Lack of IV contrast limits assessment of the solid organs. The liver, gallbladder, bile ducts, pancreas, spleen, right adrenal, kidneys are unremarkable. The left adrenal demonstrates an exophytic 16 mm nodule which demonstrates single digit Hounsfield attenuation measurements. No renal or ureteral calculi, hydronephrosis, nor hydroureter. No retroperitoneal or mesenteric mass or adenopathy. There is a broad-based ventral hernia which extends beyond the imaging volume, may contain small bowel although this is not certain this does not appear to result in any small bowel distention. No definite free or loculated intraperitoneal gas or fluid is evident. Most of the chest is also included in the exam. The lungs demonstrate diffuse groundglass opacity without evidence of focal infiltrate. The heart is mildly enlarged. The bones demonstrate degenerative spondylosis changes. Impression: Very limited exam, as described Ventral hernia, probably does not contain bowel but this cannot be stated for certain. No evidence of obstruction, in any case Left adrenal 16 mm adenoma graft diffuse pulmonary parenchymal groundglass opacity. Probably due to atelectatic changes, component of edema also possible Mild cardiomegaly This essentially agrees with the preliminary interpretation provided overnight by [facility] teleradiology service. The CT scanner at [facility] is accredited by the [employer] and the scans are performed using protocols designed to limit radiation exposure to as low as reasonably achievable to attain images of sufficient resolution adequate for diagnostic evaluation.
== END 2019-10-08 04:39 | disposition home or self-care (01) ==
LOC: EMR 02:04
DX: K42.9 Umbilical hernia without obstruction or gangrene (principal); G89.18 Other acute postprocedural pain; I10 Essential (primary) hypertension; J44.9 Chronic obstructive pulmonary disease, unspecified
CPT/HCPCS: 73110; 74150; 74176; 81003; 96372; 99284; J1170

== ENCOUNTER 2019-11-28 20:54 | Emergency (ER) | payer MEDICARE, MEDICAID ==
[~2019-11-28] VITALS: Ht 157.5 cm; Wt 117.9 kg
[~2019-11-28 20:54] MED LIST changes: +NORCO 5-325 TA1 EACH ORAL
[2019-11-28 21:15] VITALS: BP 171/91
--- NOTE | 2019-11-28 21:15 | NUR ---
ED Nurse Note: Pt ambulated to ED from home c/o abdominal pain with N x2hrs. Pt is A&Ox4, ambulates with assistance. Pt denies trauma but has a hx of hernias. Pt placed on manager cardiac cath, unable to obtain IV, ERMD aware.
--- NOTE | 2019-11-28 21:25 | NUR ---
ED Nurse Note: pT BACK FROM CT
[2019-11-28] MEDS ORDERED: Omnipaque-300 100ml vial INJ PRN (21:30)
[2019-11-28] MEDS ORDERED: Pantoprazole Inj IV ONE (21:30)
--- NOTE | 2019-11-28 21:45 | Emergency Room Report ---
History of Present Illness General Chief Complaint: Abdominal Pain Source: Patient (Darien Mota MD) Present Illness HPI Patient is a 69-year-old female who presents after increased epigastric pain. Prior history of ventral hernia as well as obesity. Previous abdominal surgery. Had recent ER visit and had previous ED imaging which showed a ventral hernia. She denies any vomiting. Reports having some nonproductive cough. (Darien Mota MD) Allergies: Coded Allergies: No Known Allergies (Unverified , 06/01/19) COVID-19 Screening Contact w/high risk pt: No Recent Travel to affected area: No Experienced COVID-19 symptoms?: No (Darien Mota MD) Patient History Past Medical History: see triage record Last Menstrual Period: na Reviewed Nursing Documentation: PMH: Agreed; PSxH: Agreed (Darien Mota MD) Nursing Documentation-PMH Hx Cardiac Problems: No Hx Hypertension: Yes Hx Asthma: Yes Hx COPD: Yes Hx Cancer: No Hx Gastrointestinal Problems: No Hx Neurological Problems: No (Darien Mota MD) Review of Systems All Other Systems: negative except mentioned in HPI (Darien Mota MD) Physical Exam Vital Signs Date Time Temp Pulse Resp B/P (MAP) Pulse Ox O2 Delivery O2 Flow Rate FiO2 11/28/19 21:11 98.6 81 16 171/91 (117) 97 Room Air Sp02 EP Interpretation: reviewed, normal General Appearance: alert, GCS 15, obese, Chronically Ill Head: atraumatic ENT: normal ENT inspection, hearing grossly normal, normal voice Neck: normal inspection, full range of motion, supple, no bony tend Respiratory: normal inspection, lungs clear, normal breath sounds, no respiratory distress, no retraction, no wheezing Cardiovascular #1: regular rate, rhythm, no edema Gastrointestinal: normal inspection, soft, no guarding, other - large hernia defect to lower abdomen and postsurgical changes Genitourinary: no CVA tenderness Musculoskeletal: normal inspection, back normal, normal range of motion Neurologic: alert, motor strength/tone normal, patternmaker metal bench III-XII nml as tested, oriented x3, responsive, speech normal, normal inspection Psychiatric: normal inspection, judgement/insight normal, mood/affect normal Skin: no rash (Darien Mota MD) Medical Decision Making Diagnostic Impression: Primary Impression: COPD (chronic obstructive pulmonary disease) Qualified Codes: J44.9 - Chronic obstructive pulmonary disease, unspecified Additional Impression: Ventral hernia Qualified Codes: K43.9 - Ventral hernia without obstruction or gangrene ER Course Patient presented for abdominal pain. Differential diagnosis include was not limited to incarcerated hernia, bowel obstruction, coronavirus infection, COPD, among others. Because of complexity of patient's case CT imaging studies were ordered.Patient was endorsed to pending CT imaging. (Darien Mota MD) ER Course This patient signed out to me. She presents with abdominal pain. She has a large umbilical/ventral hernia. Very hard IV stick. Ultrasound is unremarkable. No change. No evidence of any gangrene or obstruction. No incarceration or strangulation. (Joshua Hermosillo MD) Chest X-Ray Diagnostic Results Chest X-Ray Diagnostic Results : Chest X-Ray Ordered: Yes # of Views/Limited/Complete: 1 View Indication: Other EP Interpretation: Yes Interpretation: no consolidation, no effusion, no pneumothorax, other - copd Impression: Other - no acute changes Electronically Signed by: Joshua Hermosillo MD (Joshua Hermosillo MD) CT/MRI/US Diagnostic Results CT/MRI/US Diagnostic Results : Imaging Test Ordered: CT abdomen and pelvis Impression Read by radiologist. Unchanged appearing periumbilical hernia. Prominent colonic stool burden. Take lung attenuation could represent small airway disease. Unchanged. (Joshua Hermosillo MD) Last Vital Signs Date Time Temp Pulse Resp B/P (MAP) Pulse Ox O2 Delivery O2 Flow Rate FiO2 11/28/19 21:11 98.6 81 16 171/91 (117) 97 Room Air Status: unchanged (Darien Mota MD) Status: improved (Joshua Hermosillo MD) Disposition: HOME, SELF-CARE Condition: Stable Scripts Hydrocodone/Acetaminophen 5-325* (HYDROCODONE/ACETAMINOPHEN 5-325*) 1 Each Tablet 1 TAB ORAL Q6H PRN for For Pain, #20 TAB 0 Refills Prov: Joshua Hermosillo MD 11/28/19 Additional Instructions: Follow-up with your doctor in 7 days. You may need a referral to see a surgeon for possible surgery. Return if worse. Darien Mota MD Nov 28, 2019 21:45 Joshua Hermosillo MD Nov 28, 2019 23:09
[2019-11-28] MEDS ORDERED: HYDROmorphone 1mg/ml Carpuject IM ONE (22:00)
--- NOTE | 2019-11-28 22:10 | NUR ---
ED Nurse Note: Pt to CT
--- NOTE | 2019-11-28 22:58 | Diagnostic Imaging Report ---
EXAM: CT Abdomen and Pelvis Without Intravenous Contrast CLINICAL HISTORY: ABD PAIN TECHNIQUE: Axial computed tomography images of the abdomen and pelvis without intravenous contrast. CTDI is 23 mGy and DLP is 1312 mGy-cm. One or more of the following dose reduction techniques were used: automated exposure control, adjustment of the mA and/or kV according to patient size, use of iterative reconstruction technique. Coronal and sagittal reformatted images were created and reviewed. COMPARISON: 10/08/2019 FINDINGS: Lung bases: Mosaic lung attenuation could represent small airways disease. ABDOMEN: Liver: Unremarkable. Gallbladder and bile ducts: Unremarkable. No calcified stones. No ductal dilation. Pancreas: Unremarkable. No ductal dilation. Spleen: Unremarkable. No splenomegaly. Adrenals: Unchanged left periadrenal 1.3cm nodularity of uncertain significance since prior study, correlate with remote imaging if available and if none available consider 3-[address] adrenal gland. Unremarkable right adrenal. Kidneys and ureters: Unremarkable. No obstructing stones. No hydronephrosis. Stomach and bowel: Prominent colonic stool burden, which could be a cause for pain. Unchanged appearing periumbilical hernia with 2.9 cm mouth containing nonobstructed fluid-filled small bowel loops. Mild fat stranding of the adjacent mesenteric and peritoneal fat is of uncertain significance, and could represent some component of inflammation. Ischemia thought unlikely given lack of pneumoperitoneum, perforation, and bowel loop dilation. Correlate with presentation, and consider short interval follow-up imaging if there is continued clinical concern. No mucosal thickening. PELVIS: Appendix: No findings to suggest acute appendicitis. Bladder: Unremarkable. No stones. Reproductive: Unremarkable as visualized. ABDOMEN and PELVIS: Intraperitoneal space: Unremarkable. No free air. No significant fluid collection. Bones/joints: Degenerative spine findings. No acute fracture. No dislocation. Soft tissues: See above. Vasculature: Unremarkable. No abdominal aortic aneurysm. Lymph nodes: Unremarkable. No enlarged lymph nodes. Other findings: ASVD. IMPRESSION: 1. Unchanged appearing periumbilical hernia with 2.9 cm mouth containing nonobstructed fluid-filled small bowel loops. Mild fat stranding of the adjacent mesenteric and peritoneal fat is of uncertain significance, and could represent some component of inflammation. Ischemia thought unlikely given lack of pneumoperitoneum, perforation, and bowel loop dilation. Correlate with presentation, and consider short interval follow-up imaging if there is continued clinical concern. 2. Prominent colonic stool burden, which could be a cause for pain. 3. Otherwise no acute abnormality to explain patient's presentation. 4. Mosaic lung attenuation could represent small airways disease. 5. Unchanged left periadrenal 1.3cm nodularity of uncertain significance since prior study, correlate with remote imaging if available and if none available consider 3-[address] adrenal gland.
--- NOTE | 2019-11-28 23:00 | Diagnostic Imaging Report ---
EXAM: XR Chest, 1 View CLINICAL HISTORY: SOB TECHNIQUE: Frontal view of the chest. COMPARISON: 09/23/19 FINDINGS: Lungs: Low lung volumes with bronchovascular crowding. No consolidation, pleural effusion, or pneumothorax. Pleural space: See above. Heart: Unremarkable. No cardiomegaly. Mediastinum: Unremarkable. Bones/joints: Unremarkable. IMPRESSION: 1. Low lung volumes with bronchovascular crowding. 2. Otherwise no acute cardiopulmonary disease. 3. If there is continued concern, recommend frontal and lateral chest radiographs or CT.
[2019-11-28] MEDS ORDERED: HYDROCODON-ACE1 EA15 ORAL (23:09)
[2019-11-28 23:25] VITALS: BP 159/80
--- NOTE | 2019-11-28 23:25 | NUR ---
ER DISCHARGE NOTE: Patient is cleared to be discharged per ERMD, pt is aox4, on room air, with stable vital signs. pt was given dc and prescription instructions, pt was able to verbalize understanding, pt id band REMOVED. pt is able to ambulate with steady gait. pt took all belongings.
== END 2019-11-28 23:25 | disposition home or self-care (01) ==
LOC: EMR 21:40
DX: K43.9 Ventral hernia without obstruction or gangrene (principal); J44.9 Chronic obstructive pulmonary disease, unspecified; R05 Cough; I10 Essential (primary) hypertension; E66.9 Obesity, unspecified; K42.9 Umbilical hernia without obstruction or gangrene
CPT/HCPCS: 71045; 74176; 93005; 96372; 99284; J1170; J2405

== ENCOUNTER → 2020-01-14 | Emergency (ER) | payer MEDICARE, MEDICAID ==
[~2020-01-14] VITALS: Ht 160 cm; Wt 136.1 kg
[~2020-01-14] MED LIST changes: +HYDROCODON-ACE1 EA15 ORAL; +Morphine Sulfate 4mg/ml Inj (IV USE ONLY) IVP ONE
[2020-01-14 20:50] VITALS: BP 132/76
--- NOTE | 2020-01-14 20:50 | NUR ---
ED Nurse Note: Patient was brought into the ER by her daughter via wheelchair with complaints of abdominal pain. Per patient pain is 10/10 and was worst at 1800. Cause of pain was unknown per patients daughter. Patient has a splint on her right hand which she fractured weeks ago. Patient is AA0x4. Patient placed on monitor bed.
--- NOTE | 2020-01-14 21:07 | NUR ---
ED Nurse Note: ERMD at bedside
[2020-01-14 21:44] LABS: HEMATOCRIT 46.5 % (37.0-47.0); HEMOGLOBIN 13.4 G/DL (12.0-16.0); MEAN CORPUSCULAR VOLUME 90 FL (80-99); PLATELET COUNT 410 K/UL (150-450); RED CELL DISTRIBUTION WIDTH 15.6 % (11.6-14.8); WHITE BLOOD COUNT 15.4 K/UL (4.8-10.8)
[2020-01-14 21:48] LABS: ANION GAP 1 mmol/L (5-15); BLOOD UREA NITROGEN 11 mg/dL (7-18); CALCIUM 9.6 MG/DL (8.5-10.1); CARBON DIOXIDE 27 MMOL/L (21-32); CHLORIDE 100 MMOL/L (98-107); CREATININE 1.2 MG/DL (0.55-1.30); POTASSIUM 3.9 MMOL/L (3.5-5.1); SODIUM 127 MMOL/L (136-145)
[2020-01-14 21:54] LABS: ALANINE AMINOTRANSFERASE 22 U/L (12-78); ALBUMIN 3.5 G/DL (3.4-5.0); ALBUMIN/GLOBULIN RATIO 0.7 (1.0-2.7); ALKALINE PHOSPHATASE 104 U/L (46-116); ASPARTATE AMINO TRANSFERASE 17 U/L (15-37); BILIRUBIN,TOTAL 0.3 MG/DL (0.2-1.0)
--- NOTE | 2020-01-14 22:15 | NUR ---
ED Nurse Note: Patient to CT-scan per bed
[2020-01-14 22:52] VITALS: BP 127/84
--- NOTE | 2020-01-14 23:01 | Diagnostic Imaging Report ---
EXAM: CT Abdomen and Pelvis Without Intravenous Contrast CLINICAL HISTORY: PAIN TECHNIQUE: Axial computed tomography images of the abdomen and pelvis without intravenous contrast. CTDI is 18.1 mGy and DLP is 967.90 mGy-cm. One or more of the following dose reduction techniques were used: automated exposure control, adjustment of the mA and/or kV according to patient size, use of iterative reconstruction technique. COMPARISON: CT abdomen and pelvis dated 11/28/2019 FINDINGS: Lung bases: Bibasilar atelectasis. Heart: Calcifications of the coronary arteries, mitral valve annulus, and aortic valve leaflets. ABDOMEN: Liver: Unremarkable. Gallbladder and bile ducts: Unremarkable. Pancreas: Unremarkable. Spleen: Unremarkable. Adrenals: Unremarkable. Kidneys and ureters: Unremarkable. Stomach and bowel: There are a few dilated loops of small bowel are seen within a right lower quadrant ventral wall hernia. There is mild edema seen within the hernia sac. Findings may represent early incarceration. No pneumatosis or free air. PELVIS: Appendix: Appendix is unremarkable. Bladder: Unremarkable. Reproductive: Unremarkable as visualized. ABDOMEN and PELVIS: Intraperitoneal space: See above. Bones/joints: No acute fracture. No dislocation. Soft tissues: See above. Vasculature: Vascular calcifications. Lymph nodes: Unremarkable. IMPRESSION: There are a few dilated loops of small bowel are seen within a right lower quadrant ventral wall hernia. There is mild edema seen within the hernia sac. Findings may represent early incarceration. No pneumatosis or free air. <MYCVCSECTION> Communications: 01/14/20 23:08 Verify Receipt Verified receipt with MYKE Vu, given to Joshua Hermosillo MD on 01/13 23:08 (-07:00)
--- NOTE | 2020-01-14 23:11 | Emergency Room Report ---
History of Present Illness General Chief Complaint: Abdominal Pain Present Illness HPI 69-year-old female history of abdominal wall hernia presented with abdominal pain nausea and vomiting. Symptoms present for 1 day. She has a history of abdominal wall hernia causing similar pain in the past. Patient is a very poor historian and history was taken from the daughter. Allergies: Coded Allergies: No Known Allergies (Unverified , 06/01/19) COVID-19 Screening Contact w/high risk pt: No Recent Travel to affected area: No Experienced COVID-19 symptoms?: No COVID-19 Testing performed THIRD RIGGER: No Patient History Reviewed Nursing Documentation: PMH: Agreed; PSxH: Agreed Nursing Documentation-PMH Hx Cardiac Problems: No Hx Hypertension: Yes Hx Asthma: Yes Hx COPD: Yes Hx Cancer: No Hx Gastrointestinal Problems: No Hx Neurological Problems: No Review of Systems All Other Systems: negative except mentioned in HPI Physical Exam Vital Signs Date Time Temp Pulse Resp B/P (MAP) Pulse Ox O2 Delivery O2 Flow Rate FiO2 01/14/20 20:47 20 96 Room Air 01/14/20 20:50 88 01/14/20 20:50 98.0 132/76 Sp02 EP Interpretation: reviewed, normal General Appearance: well appearing, Chronically Ill Head: normocephalic, atraumatic Eyes: bilateral eye PERRL, bilateral eye EOMI ENT: hearing grossly normal, moist mucus membranes Neck: full range of motion, supple Respiratory: lungs clear, normal breath sounds, no rhonchi, no respiratory distress, no retraction, no wheezing Cardiovascular #1: normal peripheral pulses, regular rate, rhythm, no murmur Gastrointestinal: soft, non-distended, no guarding, other - Incisional versus umbilical hernia noted in lower abdominal wall firm to touch Neurologic: alert, oriented x3, no focal defects Skin: normal color, warm/dry Procedures Additional Procedure Procedure Narrative Hernia reduction. Verbal consent obtained from patient, using pressure and hernia was reduced in the periumbilical region. Patient tolerated procedure well without complication. Medical Decision Making Diagnostic Impression: Primary Impression: Hernia ER Course MDM: Differential included but not limited to abdominal wall hernia, incarcerated hernia, gastroenteritis to name a few Clinical course-on exam patient did have a palpable hernia in the abdominal wall which was reduced at bedside. Pain was dramatically improved after this. Laboratory studies did demonstrate mild leukocytosis. I suspect due to inflammation from early hernia incarceration. CT scan did demonstrate evidence of incarcerated hernia again which was via bedside. After reduction patient had no active vomiting pain was controlled will be discharged with instructions to follow-up outpatient and given return precautions. Labs - Laboratory Tests Test 01/14/20 21:20 White Blood Count 15.4 K/UL (4.8-10.8) H Red Blood Count 5.20 M/UL (4.20-5.40) Hemoglobin 13.4 G/DL (12.0-16.0) Hematocrit 46.5 % (37.0-47.0) Mean Corpuscular Volume 90 FL (80-99) Mean Corpuscular Hemoglobin 25.8 PG (27.0-31.0) L Mean Corpuscular Hemoglobin Concent 28.8 G/DL (32.0-36.0) L Red Cell Distribution Width 15.6 % (11.6-14.8) H Platelet Count 410 K/UL (150-450) Mean Platelet Volume 5.5 FL (6.5-10.1) L Neutrophils (%) (Auto) % (45.0-75.0) Lymphocytes (%) (Auto) % (20.0-45.0) Monocytes (%) (Auto) % (1.0-10.0) Eosinophils (%) (Auto) % (0.0-3.0) Basophils (%) (Auto) % (0.0-2.0) Neutrophils % (Manual) Pending Lymphocytes % (Manual) Pending Platelet Estimate Pending Platelet Morphology Pending Sodium Level 127 MMOL/L (136-145) L Potassium Level 3.9 MMOL/L (3.5-5.1) Chloride Level 100 MMOL/L (98-107) Carbon Dioxide Level 27 MMOL/L (21-32) Anion Gap 1 mmol/L (5-15) L Blood Urea Nitrogen 11 mg/dL (7-18) Creatinine 1.2 MG/DL (0.55-1.30) Estimated Glomerular Filtration Rate 44.4 mL/min (>60) Glucose Level 141 MG/DL (74-106) H Calcium Level 9.6 MG/DL (8.5-10.1) Total Bilirubin 0.3 MG/DL (0.2-1.0) Aspartate Amino Transferase (AST) 17 U/L (15-37) Alanine Aminotransferase (ALT) 22 U/L (12-78) Alkaline Phosphatase 104 U/L (46-116) Total Protein 8.4 G/DL (6.4-8.2) H Albumin 3.5 G/DL (3.4-5.0) Globulin 4.9 g/dL Albumin/Globulin Ratio 0.7 (1.0-2.7) L Lipase 69 U/L (73-393) L On reevaluation: Pain controlled, patient in no acute distress Plan-discharge home with outpatient follow-up with PMD. Last Vital Signs Date Time Temp Pulse Resp B/P (MAP) Pulse Ox O2 Delivery O2 Flow Rate FiO2 01/14/20 22:52 98.0 83 20 127/84 99 Room Air Disposition: HOME, SELF-CARE Condition: Improved Scripts Hydrocodone/Acetaminophen 5-325* (HYDROCODONE/ACETAMINOPHEN 5-325*) 1 Each Tablet 1 TAB ORAL Q6H PRN for For Pain, #20 TAB 0 Refills Prov: Ramsey Mir M.D. 01/14/20 Patient Instructions: Hernia, Adult, [id number] Additional Instructions: Patient is instructed to follow-up with her primary care doctor, primary care clinic or [facility] in 1 to 2 days. Patient instructed to return for any worsening symptoms or concerns. Disclaimer: Please note that this report is being documented using [employer] technology. This can lead to erroneous entry secondary to incorrect interpretation by the dictating instrument. Ramsey Mir M.D. Jan 14, 2020 23:11
--- NOTE | 2020-01-14 23:35 | NUR ---
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 Left a voicemail
--- NOTE | 2020-01-14 23:38 | NUR ---
ER DISCHARGE NOTE: Patient is cleared to be discharged per ERMD, pt is aox4, on room air, with stable vital signs. pt was given dc and prescription instructions, pt was able to verbalize understanding, pt id band and iv site removed without complications. pt was wheeled to the waiting room via wheelchair.
[2020-01-14 23:44] VITALS: BP 124/72
== END | disposition home or self-care (01) ==
LOC: EMR 21:00
DX: K43.9 Ventral hernia without obstruction or gangrene (principal); I10 Essential (primary) hypertension; J44.9 Chronic obstructive pulmonary disease, unspecified
CPT/HCPCS: 36415; 74176; 80053; 83690; 85007; 85025; 96361; 96374; 96375; 99284; J2270; J2405; J7030